=== PATIENT | female | born 1945 | race Caucasian/White ===

== ENCOUNTER 2016-07-19 21:41 | Inpatient (IN) ==
[2016-07-19] MEDS ORDERED: MECLIZINE 25 MG TABLET PO STA (22:37)
[2016-07-19] MEDS ORDERED: SODIUM CHLORIDE 0.9% 1,000 ML IV STA (22:37)
--- NOTE | 2016-07-19 22:58 | CT Report ---
Exam: CT scan of brain without contrast Date: 07/19/2016 Indication: Dizziness Comparison: None Patient's classification: Emergency department Technical: Images were obtained from the skull base to the vertex without the use of intravenous contrast. Dose reduction was performed with decreasing kv and mA and automated exposure Total DLP: 997.9 mGy*cm Findings: Hyperostosis frontalis interna change present. Small vessel changes are present in the paraventricular subcortical white matter regions. Old lacunar infarction cannot be total excluded in the right centrum semiovale. The ventricles are midline. Brainstem is intact. The cerebellum reveals some suggestion of old infarction involving the right cerebellum. The paranasal sinuses globes and sella and mastoids are intact. Impression: 1. Old lacunar infarction in the right centrum semiovale and small vessel disease 2. Old right cerebellar infarct 3. No acute hemorrhage infarction or mass effect PROCEDURE INTERPRETED AT [facility] DEPARTMENT OF RADIOLOGY Final Report Signed by: Dr. Jose Bernard
--- NOTE | 2016-07-19 22:59 | XRay Report ---
Exam: XR chest 1V portable Date: 07/19/2016 10:38 PM Indication: Shortness of breath Comparison: 11/03/2012 Technical:AP semierect Findings: Cardiomegaly with previous sternotomy. Small granulomas present left lung base and small calcified nodes in the perihilar regions. External cardiac leads tubing are present. Tiny low-volume effusions are present bilaterally. No pneumothorax Impression: 1. Cardiomegaly previous sternotomy with tiny effusions 2. Scattered granuloma changes. PROCEDURE INTERPRETED AT [facility] [place] DEPARTMENT OF RADIOLOGY Final Report Signed by: Dr. Jose Bernard
[2016-07-19] MEDS ORDERED: MECLIZINE 25 MG TABLET ONE (23:01)
--- NOTE | 2016-07-19 23:27 | Emergency Department Note ---
IOchoa Meredith, am scribing for, and in the presence of, Melquiades Covarrubias MD 22:34. ISatish Robert M, MD, personally performed the services described in this documentation, ascribed by Jazzy Packer in my presence, and it is both accurate and complete 326 . Arrival - Arrival Chief Complaint: Dizziness Stated Complaint: DIZZY ED Nursing Triage Note: states she has been feeling weak since friday but felt better but today she has been dizzy al day and almost past out. states she called her dr office today and they told her to come here. several months ago she was told both ears were stopped up and pt hasnt had that checkd having sob when up and walking Mode of Arrival: Wheelchair Limitations: No Limitations Source: Patient, Old Records Reviewed, RN Notes Reviewed - History of Present Illness HPI Narrative: Pt is a 71 y/o white female reporting to the ED with c/o intermittent episodes of dizziness, generalized weakness, and near-syncope for the past 4 days. She confirms dyspnea on exertion and decreased PO intake but denies any diaphoresis. Pt has a history of CAD, HTN, CVA, NIDDM, HLD, and thyroid disorder. She denies use of tobacco or alcohol. Onset (ago): day(s) Consistency: intermittent Date of Last Menstrual Period: pm Allergies/Adverse Reactions: Allergies Allergy/AdvReac Type Severity Reaction Status Date / Time No Known Allergies Allergy Unverified 07/19/16 21:52 Home Medications: Home Medications Medication Instructions Recorded Confirmed Type Amitriptyline [Elavil] 50 mg PO DAILY 07/19/16 07/19/16 History Amlodipine Besylate 10 mg PO DAILY 07/19/16 07/19/16 History Aspirin/Calcium Carbonate/Mag 325 mg PO DAILY 07/19/16 07/19/16 History [Aspirin Buffered 325 mg Tab] Atenolol 100 mg PO BID 07/19/16 07/19/16 History Atorvastatin [Lipitor] 60 mg PO DAILY 07/19/16 07/19/16 History DULoxetine [Cymbalta] 30 mg PO DAILY 07/19/16 07/19/16 History Ferrous Sulfate 325 mg PO TID 07/19/16 07/19/16 History Furosemide 40 mg PO BID 01/20/17 01/20/17 History Glimepiride 2 mg PO DAILY 07/19/16 07/19/16 History Levothyroxine Sodium 200 mcg PO DAILY 07/19/16 07/19/16 History Review of System - Review of System 12 point system: reviewed and no additional remarkable complaints except as stated - Review of System Constitutional: Present: as per HPI, weakness, other (dizziness) Cardiovascular: Present: as per HPI, dyspnea on exertion, syncope (near-syncope) Medical,Surgical,& Family Hx - Medical History Cardio: History of: CAD, Hypertension Neurology: History of: Cerebrovascular Accident (brain stem stroke 1996) Endocrine: History of: Diabetes Mellitus (NIDDM), Dyslipidemia, Thyroid Disorder - Surgical History Cardiac Surgeries: Sugical HX of: Cardiac Surgery - Family History Family History: Denies;: Additional Family History - Social History Smoking Status: Never smoker Frequency of Alcohol Use: None Type of Drug Use: None Exam Vital Signs: Vital Signs Temperature 97.2 F L 07/19/16 21:46 Pulse Rate 71 07/20/16 00:43 Respiratory Rate 15 07/20/16 00:43 Blood Pressure 159/97 07/20/16 00:43 O2 Sat by Pulse Oximetry 92 L 07/20/16 00:43 - General General appearance: alert, in no apparent distress - Head Head exam: Present: atraumatic, normocephalic - Eye Eye exam: Present: normal appearance, PERRL, EOMI - ENT ENT exam: Present: mucous membranes dry, normal external ear exam, other ( bilateral cerumen obstructions) - Neck Neck exam: Present: full ROM, trachea midline. Absent: tenderness, meningismus , lymphadenopathy, thyromegaly - Chest Chest inspection: Present: symmetric chest wall rise. Absent: tenderness, rash - Respiratory Respiratory exam: Present: normal lung sounds bilaterally. Absent: respiratory distress - Cardiovascular Cardiovascular exam: Present: regular rate, normal rhythm, normal heart sounds. Absent: murmur, rubs, gallop - Abdominal Exam Abdominal exam: Present: soft, normal bowel sounds. Absent: distention - Extremities Exam Extremities exam: Present: full ROM, normal capillary refill. Absent: tenderness, pedal edema, calf tenderness - Back Exam Back exam: Present: full ROM. Absent: tenderness - Neurological Exam Neurological exam: Present: alert, oriented X3, CN II-XII intact. Absent: motor sensory deficit - Psychiatric Psychiatric exam: Present: normal affect, normal mood - Skin Skin exam: Present: warm, dry, intact, normal color Course - Reevaluation(s) Reevaluation #1: The tilt and Hemoccults are negative. Time: 23:30 - Consultations Consultation #1: Dr. Cem Roque will evaluate and admit the patient. Time: 01:12 Results - Labs CBC & BMP: 07/19/16 23:13 07/19/16 23:13 Lab Results: I have reviewed the patients labs Labs: Lab Results WBC 10.5 10*3/uL (4.5-13.71) 07/19/16 23:13 RBC 4.88 10*6/uL (3.8-5.5) 07/19/16 23:13 Hgb 15.1 GM/DL (12.0-16.0) 07/19/16 23:13 Hct 46.9 VOL% (35.7-47.0) 07/19/16 23:13 MCV 96.1 FL (87-102) 07/19/16 23:13 MCH 31 PG (27-34) 07/19/16 23:13 MCHC 32.2 GM/DL (32-36) 07/19/16 23:13 RDW 13.3 % (9.3-17.3) 07/19/16 23:13 Plt Count 225 10*3/uL (130-400) 07/19/16 23:13 MPV 10.2 FL (9.6-12.0) 07/19/16 23:13 Neut % (Auto) 79.1 % (38.7-73.9) H 07/19/16 23:13 Lymph % (Auto) 12.5 % (21.3-54.2) L 07/19/16 23:13 [place] % (Auto) 6.7 % (1.7-12.7) 07/19/16 23:13 Eos % (Auto) 0.7 % (0.00-10.9) 07/19/16 23:13 Baso % (Auto) 0.3 % (0.0-0.8) 07/19/16 23:13 Neut # (Auto) 8.3 10*3/uL (1.4-7.4) H 07/19/16 23:13 Lymph # (Auto) 1.3 10*3/uL (1.4-4.0) L 07/19/16 23:13 [place] # (Auto) 0.7 10*3/uL (0.11-0.8) 07/19/16 23:13 Eos # (Auto) 0.1 10*3/uL (0.0-0.87) 07/19/16 23:13 Baso # (Auto) 0.0 10*3/uL (0.0-0.2) 07/19/16 23:13 Immature Gran % 0.7 % 07/19/16 23:13 Nucleated RBC % 0.0 /100WBC 07/19/16 23:13 Immature Gran # 0.07 # 07/19/16 23:13 Nucleated RBCs # 0.00 10*3/uL 07/19/16 23:13 INR 1.1 07/19/16 23:13 PT Patient/Control Mix 11.3 SECS 07/19/16 23:13 Sodium 144 MMOL/L (136-145) 07/19/16 23:13 Potassium 4.7 MMOL/L (3.5-5.1) 07/19/16 23:13 Chloride 106 MMOL/L (98-107) 07/19/16 23:13 Carbon Dioxide 28 MMOL/L (21-32) 07/19/16 23:13 Anion Gap 14.7 MMOL/L (5.0-15.0) 07/19/16 23:13 BUN 22 MG/DL (7-18) H 07/19/16 23:13 Creatinine 0.90 MG/DL (0.55-1.02) 07/19/16 23:13 GFR Calculation 68 ML/MIN 07/19/16 23:13 BUN/Creatinine Ratio 24.00 RATIO (6.00-20.00) H 07/19/16 23:13 Glucose 157 MG/DL (74-106) H 07/19/16 23:13 Calculated Osmolality 291.8 MOS/KG (273-304) 07/19/16 23:13 Calcium 9.9 MG/DL (8.5-10.1) 07/19/16 23:13 Magnesium 2.5 MG/DL (1.8-2.4) H 07/19/16 23:13 Troponin I 0.031 NG/ML (0.00-0.045) 07/19/16 23:13 B-Natriuretic Peptide 408 PG/ML (2-100) H 07/19/16 23:13 Urine Color Yellow (Yellow) 07/19/16 23:13 Urine Appearance Cloudy (Clear) 07/19/16 23:13 Urine pH 6.0 (4.5-8.0) 07/19/16 23:13 Ur Specific [place] 1.013 (1.001-1.035) 07/19/16 23:13 Urine Protein 30 MG/DL 07/19/16 23:13 Urine Glucose (UA) 50 mg/dL (Negative) 07/19/16 23:13 Urine Ketones 5 mg/dL (Negative) 07/19/16 23:13 Urine Blood Large mg/dL (Negative) 07/19/16 23:13 Urine Nitrate Negative (Negative) 07/19/16 23:13 Urine Bilirubin Negative mg/dL (Negative) 07/19/16 23:13 Urine Urobilinogen < 2.0 EU/DL (0.2-1.0) H 07/19/16 23:13 Urine Leukocytes Large Colleen/ul (Negative) H 07/19/16 23:13 Urine RBC 372 /HPF (0-4) 07/19/16 23:13 Urine WBC 98 /HPF (0-6) 07/19/16 23:13 Ur Squamous Epith Cells Many /HPF (0-10) 07/19/16 23:13 Urine Bacteria Many /HPF (Few) 07/19/16 23:13 Urine Mucus Few /LPF (Occasional) 07/19/16 23:13 Ur Culture Indicated? Results to follow 07/19/16 23:13 - Diagnostic Findings Procedure: Chest x-ray: report reviewed by me (1. Cardiomegaly previous sternotomy with tiny effusions. 2. Scattered granuloma changes. ), CT: report reviewed by me (Head: 1. Old lacunar infarction in the right centrum semiovale and small vessel disease. 2. Old right cerebellar infarct. 3. No acute hemorrhage infarction or mass effect. ) Disposition Clinical Impression: Dizziness, Cystitis Case discussed with: patient, patient's family Condition: Stable Time of Disposition:
[2016-07-19 23:33] LABS: Basophils % 0.3 % (0.0-0.8); Eosinophils # 0.1 10*3/uL (0.0-0.87); Eosinophils % 0.7 % (0.00-10.9); Hematocrit 46.9 VOL% (35.7-47.0); Hemoglobin 15.1 GM/DL (12.0-16.0); Immature Granulocytes % 0.7 %; Immature Granulocytes Absolute 0.07 #; Lymphocytes # 1.3 10*3/uL (1.4-4.0); Lymphocytes % 12.5 % (21.3-54.2); Mean Corpuscular HGB Conc 32.2 GM/DL (32-36); Mean Corpuscular Hemoglobin 31 PG (27-34); Mean Corpuscular Volume 96.1 FL (87-102); Mean Platelet Volume 10.2 FL (9.6-12.0); Monocytes # 0.7 10*3/uL (0.11-0.8); Monocytes % 6.7 % (1.7-12.7); Neutrophils # 8.3 10*3/uL (1.4-7.4); Neutrophils % 79.1 % (38.7-73.9); Platelet Count 225 10*3/uL (130-400); Red Blood Count 4.88 10*6/uL (3.8-5.5); Red Cell Distribution Width 13.3 % (9.3-17.3); White Blood Count 10.5 10*3/uL (4.5-13.71)
[2016-07-19 23:42] LABS: INR 1.1; PT Patient Result 11.3 SECS
[2016-07-19 23:45] LABS: Calcium 9.9 MG/DL (8.5-10.1); Magnesium 2.5 MG/DL (1.8-2.4); Osmolality,Calculated 291.8 MOS/KG (273-304); Potassium 4.7 MMOL/L (3.5-5.1); Troponin I Only 0.031 NG/ML (0.00-0.045)
[2016-07-20 00:29] LABS: Apearance,Urine CLOUDY (Clear); Bacteria,Urine Many /HPF (Few); Bilirubin,Urine Negative (Negative); Blood, Urine Large mg/dL (Negative); Glucose,Urine (UA) 50 mg/dL (Negative); Ketones,Urine 5 mg/dL (Negative); Mucus,Urine Few /LPF (Occasional); Nitrite,Urine Negative (Negative); Protein,Urine 30 MG/DL; RBC,Urine 372 /HPF (0-4); Squamous Epithelial Cell,Urine Many /HPF (0-10); Urine Color Yellow (Yellow); Urine Specific Gravity 1.013 (1.001-1.035); Urine Urobilinogen < 2.0 EU/DL (0.2-1.0); WBC,Urine 98 /HPF (0-6)
[2016-07-20] MEDS ORDERED: LEVOFLOXACIN INJ 500 MG in PREMIX 1 EACH IV STA (01:14)
[2016-07-20] MEDS ORDERED: LEVOFLOXACIN INJ 100 ML IV ONE (01:16)
[2016-07-20] MEDS ORDERED: MORPHINE 2 MG/1 ML SYRINGE IV PRN (03:44)
[2016-07-20] MEDS ORDERED: ONDANSETRON 4 MG/2 ML VIAL IV PRN (03:44)
[2016-07-20] MEDS ORDERED: BISACODYL 5 MG TABLET PO PRN (03:44)
[2016-07-20] MEDS ORDERED: NICOTINE 21 MG/24 HR PATCH TRANSDERM PRN (03:44)
[2016-07-20] MEDS ORDERED: ACETAMINOPHEN 325 MG TABLET PO PRN (03:44)
[2016-07-20] MEDS ORDERED: GLUCAGON 1 MG VIAL IM PRN (03:50)
[2016-07-20] MEDS ORDERED: DEXTROSE 50% 25 GM/50 ML VIAL IV PRN (03:50)
--- NOTE | 2016-07-20 03:52 | Hospitalist History & Physical ---
Assessment and Plan (1) Acute cystitis Status: Acute Current Visit: Yes (2) Type 2 diabetes mellitus Status: Acute Current Visit: Yes (3) Hypertension Status: Acute Current Visit: Yes (4) History of CVA (cerebrovascular accident) Status: Acute Current Visit: Yes (5) Dizziness Status: Acute Assessment and plan: Plan: Admit for IV antibiotics as she continues to have symptoms despite being on antibiotics including Cipro and a short course of Augmentin, albeit for upper respiratory symptoms. We'll start her on IV cefepime check blood and urine cultures and follow-up CT of the brain. Current Visit: Yes History of Present Illness Chief complaint: dysuria, dizziness History of present illness: Ms. Orourke is a 71 year old female with hypertension, diabetes, history of CABG , who is here with a few days of dysuria and associated dizziness. She states she had chills over the last 24 hours but no fever, shortness of breath, nausea or vomiting. Initial labs indicated a urinary tract infection and it was reported she had purulent urine when collected in the emergency room. She describes her lower abdominal pain as spasms, "not terribly painful." Pain is nonradiating at this time does not seem to be bothering her. Her symptoms have been intermittent. Regarding her dizziness she's had no syncope or headache. CT scan is pending. Home Medications Medication Instructions Recorded Confirmed Type Amitriptyline [Elavil] 50 mg PO DAILY 07/19/16 07/19/16 History Amlodipine Besylate 10 mg PO DAILY 07/19/16 07/19/16 History Aspirin/Calcium Carbonate/Mag 325 mg PO DAILY 07/19/16 07/19/16 History [Aspirin Buffered 325 mg Tab] Atenolol 100 mg PO BID 07/19/16 07/19/16 History Atorvastatin [Lipitor] 60 mg PO DAILY 07/19/16 07/19/16 History DULoxetine [Cymbalta] 30 mg PO DAILY 07/19/16 07/19/16 History Ferrous Sulfate 325 mg PO TID 07/19/16 07/19/16 History Furosemide 40 mg PO BID 07/19/16 07/19/16 History Glimepiride 2 mg PO DAILY 07/19/16 07/19/16 History Levothyroxine Sodium 200 mcg PO DAILY 07/19/16 07/19/16 History Allergies Allergy/AdvReac Type Severity Reaction Status Date / Time No Known Allergies Allergy Unverified 07/19/16 21:52 Medical,Surgical,& Family Hx - Medical History Cardio: History of: CAD, Hypertension Neurology: History of: Cerebrovascular Accident (brain stem stroke 1996) Endocrine: History of: Diabetes Mellitus (NIDDM), Dyslipidemia, Thyroid Disorder - Surgical History Cardiac Surgeries: Sugical HX of: Cardiac Surgery - Family History Family History: noncontributory Family History: Denies;: Additional Family History - Social History Smoking Status: Never smoker Frequency of Alcohol Use: None Type of Drug Use: None Marital Status: Unknown Functional capacity: independent ambulation Review of systems: A 12 point review of systems is negative except as specified in the HPI Exam - Constitutional Vitals: Period Temp Pulse Resp BP Sys/Quintanilla Pulse Ox Last 24 Hr 97.2 F 67-80 15-18 133-168/80-112 90-98 Exam: EXAM: CONSTITUTIONAL: non toxic, NAD HEENT: NC, AT, OP benign, AMRIT, EOMI CV: RRR no m/g/r RESP: clear B/L, no w/r/r GI: abd soft, very mild suprapubic tenderness, ND, +bowel sounds INTEGUMENTARY: no lesions or rash EXTREMITIES: no c/c/e NEURO: no focal deficits PSYCH: unremarkable, A/O x3 Results - Labs CBC & BMP: 07/19/16 23:13 07/19/16 23:13 Lab Results: I have reviewed the past 24 hour labs - Diagnostic Findings Procedure: CT: image reviewed by me
[2016-07-20] MEDS ORDERED: LEVOFLOXACIN 750 MG TABLET PO SCH (04:00)
[2016-07-20] MEDS ORDERED: methylPREDNISolone SOD SUC 40 MG/1 ML VIAL IV SCH (04:00)
[2016-07-20] MEDS: CEFEPIME 1,000 MG in SODIUM CHLORIDE 0.9% 100 ML IV SCH ×2 (05:29→18:29)
[2016-07-20] MEDS: LEVOTHYROXINE 200 MCG TABLET PO SCH ×2 (06:13→09:36)
[2016-07-20 06:15] LABS: Basophils % 0.3 % (0.0-0.8); Eosinophils # 0.1 10*3/uL (0.0-0.87); Eosinophils % 0.6 % (0.00-10.9); Hematocrit 42.8 VOL% (35.7-47.0); Hemoglobin 13.6 GM/DL (12.0-16.0); Immature Granulocytes % 0.3 %; Immature Granulocytes Absolute 0.03 #; Lymphocytes # 1.4 10*3/uL (1.4-4.0); Lymphocytes % 14.3 % (21.3-54.2); Mean Corpuscular HGB Conc 31.8 GM/DL (32-36); Mean Corpuscular Hemoglobin 31 PG (27-34); Mean Corpuscular Volume 97.3 FL (87-102); Mean Platelet Volume 9.9 FL (9.6-12.0); Monocytes # 0.8 10*3/uL (0.11-0.8); Monocytes % 7.9 % (1.7-12.7); Neutrophils # 7.7 10*3/uL (1.4-7.4); Neutrophils % 76.6 % (38.7-73.9); Platelet Count 205 10*3/uL (130-400); Red Cell Distribution Width 13.2 % (9.3-17.3)
[2016-07-20 07:00] LABS: Albumin 3.1 G/DL (3.4-5.0); Bilirubin,Total 0.7 MG/DL (0.2-1.0); Calcium 8.7 MG/DL (8.5-10.1); Osmolality,Calculated 294.6 MOS/KG (273-304); Potassium 4.5 MMOL/L (3.5-5.1); Total Protein 6.7 G/DL (6.4-8.3)
[2016-07-20] MEDS: ALBUTEROL/IPRATROPIUM 3 ML NEB RESP TX SCH ×3 (07:53→19:25)
--- NOTE | 2016-07-20 08:19 | Hospitalist Progress Note ---
Assessment and Plan (1) UTI (urinary tract infection) Status: Acute Assessment and plan: Although patient did not report any nodule me at present urination symptoms it was mentioned in H&P will continue to treat with antibiotics and follow culture sensitivity Current Visit: Yes (2) Dizziness Status: Acute Assessment and plan: I will check orthostatic blood pressure and pulse rate . We will obtain an echocardiogram Current Visit: Yes (3) Hypertension Status: Chronic Assessment and plan: Acceptable blood pressure but need to check orthostatic vitals as mentioned Current Visit: Yes (4) Type 2 diabetes mellitus Status: Chronic Assessment and plan: We'll continue to follow blood blood sugar patient is on oral hypoglycemic Current Visit: Yes (5) Hypernatremia Status: Acute Assessment and plan: Likely due to loop diuretics. This also wanted to some volume depletion. Since she does not have any congestive symptoms however cut down the dose to 20 twice a day and watch and coverage fluid intake but remain on a low-sodium diet Current Visit: Yes (6) Low O2 saturation Status: Acute Assessment and plan: Saturation been mentioned in the vitals patient is not short of breath will hold oxygen monitor symptoms and recheck O2 saturation Current Visit: Yes Hospitalist: Subjective Interval history: Ms. Orourke is a 71 year old female with hypertension, diabetes, history of CABG , she was admitted with a history of dizziness started for about 4 days prior to admission. The dizziness is reported more orthostatic and never in rested position. She feels like, lightheadedness episodes. She has been on antihypertensive medications at home but does not know the names of medications. She checks blood pressure at home but not sure about the readings. She feels fine now. She was reported to have a low O2 saturation earlier but according to patient she had this probe adjusted and it was better. She she has no history of shortness of breath or chest pain. She has been on oxygen here which was increased due to finding of a low O2 saturation. Although she denies any dysuria at present to me it was some mentioned history and physical to have chills with the nausea vomiting dyspnea and was reported to have pyuria and being treated for UTI with cefepime ' Exam - Constitutional Vitals: Period Temp Pulse Resp BP Sys/Quintanilla Pulse Ox Last 24 Hr 97.6 F-98.5 F 61-77 14-20 126-163/70-96 88-98 General appearance: no acute distress, over weight - Respiratory Respiratory exam: Present: clear to auscultation bilaterally (equal air entry bilaterally). Absent: rales, rhonchi - Cardiovascular Cardiovascular exam: Present: regular rate and rhythm. Absent: bradycardia, JVD , tachycardia - GI/Abdominal GI/Abdominal exam: Present: normal bowel sounds, soft. Absent: tenderness - Extremities Exam Extremities exam: Present: normal inspection, edema (left leg chronic edema since CABG) - Neurological Exam Neurological exam: Present: alert, oriented X3 - Psychiatric Psychiatric exam: Present: normal affect, normal mood Results - Labs CBC & BMP: 07/20/16 05:51 07/20/16 05:51 Lab Results: I have reviewed the past 24 hour labs
[2016-07-20] MEDS ORDERED: FUROSEMIDE 40 MG TABLET PO SCH (09:00)
[2016-07-20] MEDS ORDERED: FLUTICASONE/SALMETEROL 250-50 DISKUS 14 DOSE INH SCH (09:00)
[2016-07-20] MEDS: INSULIN REGULAR 100 UNIT/ML SUBCUT SCH ×4 (09:32→20:59)
[2016-07-20] MEDS: amLODIPine 10 MG TABLET PO SCH (09:34)
[2016-07-20] MEDS: ATORVASTATIN 40 MG TABLET PO SCH (09:35)
[2016-07-20] MEDS: GLIMEPIRIDE 2 MG TABLET PO SCH (09:37)
[2016-07-20] MEDS: FERROUS SULFATE 325 MG TABLET PO SCH ×3 (09:37→20:59)
[2016-07-20] MEDS: ASPIRIN EC 325 MG TABLET PO SCH (09:37)
[2016-07-20] MEDS: PANTOPRAZOLE 40 MG TABLET PO SCH (09:37)
[2016-07-20] MEDS: ATENOLOL 100 MG TABLET PO SCH ×2 (09:37→20:59)
[2016-07-20] MEDS: DULoxetine 30 MG CAPSULE PO SCH (09:38)
[2016-07-20] MEDS: ENOXAPARIN 40 MG/0.4 ML SYRINGE SUBCUT SCH (09:38)
[2016-07-20] MEDS: AMITRIPTYLINE 25 MG TABLET PO SCH (09:39)
[2016-07-20] MEDS: FUROSEMIDE 20 MG TABLET PO SCH (15:38)
--- NOTE | 2016-07-20 16:19 | ECHO Report ---
Madisyn Orourke Exam Date: 07/20/2016 13:44 Referring Physician: Technologist: Herminia CORONEL Age: 71 Ht (in): Wt (lb): Gender: F Exam Location: [facility] Echo Indications: cystitis, diabetes, HTN, dizziness, UTI, Hx. CVA BP: / HR: Rhythm: Sinus Technical Quality: Good IMPRESSIONS Left ventricular ejection fraction is estimated at > 55 %. Moderately increased septal wall thickness. Mild concentric left ventricular hypertrophy with diastolic dysfunction. Mildly increased right ventricular size. The right atrium is mildly enlarged. Moderately increased left atrial diameter. Mildly thickened mitral valve with 1 + mitral regurgitation. Aortic valve sclerosis without stenosis or regurgitation. MEASUREMENTS (Male / Female) Normal Values 2D ECHO LV Diastolic Diameter PLAX 3.4 cm 4.2 - 5.9 / 3.9 - 5.3 cm LV Systolic Diameter PLAX 2.0 cm LV Fractional Shortening PLAX 42.9 % IVS Diastolic Thickness 1.4 cm 0.6 - 1.0 / 0.6 - 0.9 cm LVPW Diastolic Thickness 1.2 cm 0.6 - 1.0 / 0.6 - 0.9 cm RV Internal Dim ED PLAX 3.4 cm Aortic Root Diameter 2.4 cm LA Systolic Diameter LX 4.5 cm 3.0 - 4.0 / 2.7 - 3.8 cm FINDINGS Left Ventricle Moderately increased septal wall thickness. Mildly increased posterior wall thickness. Mild concentric left ventricular hypertrophy with diastolic dysfunction. Left ventricular ejection fraction is estimated at > 55 %. Right Ventricle Mildly increased right ventricular size. Right Atrium The right atrium is mildly enlarged. Left Atrium Moderately increased left atrial diameter. Mitral Valve Mildly thickened mitral valve with 1 + mitral regurgitation. Aortic Valve Aortic valve sclerosis without stenosis or regurgitation. Tricuspid Valve Morphologically normal tricuspid valve. Pulmonic Valve Morphologically normal pulmonic valve. Pericardium No pericardial effusion. Aorta Normal size aortic root and proximal ascending aorta. Vitaly Sandoval MD (Electronically Signed) Final Date: 20 July 2016 16:18
[2016-07-20] MEDS ORDERED: POTASSIUM CHLORIDE 20 MEQ TABLET PO SCH (21:00)
[2016-07-21] MEDS ORDERED: ALBUTEROL/IPRATROPIUM 3 ML NEB RESP TX SCH (01:00)
[2016-07-21] MEDS ORDERED: LEVALBUTEROL 1.25 MG/3 ML NEB RESP TX SCH (01:00)
[2016-07-21] MEDS ORDERED: IPRATROPIUM 500 MCG/2.5 ML NEB RESP TX SCH (01:00)
[2016-07-21] MEDS: ALBUTEROL/IPRATROPIUM 3 ML NEB RESP TX SCH ×4 (02:18→21:26)
[2016-07-21] MEDS: LEVOTHYROXINE 200 MCG TABLET PO SCH (06:09)
[2016-07-21] MEDS: CEFEPIME 1,000 MG in SODIUM CHLORIDE 0.9% 100 ML IV SCH ×2 (06:09→19:10)
[2016-07-21] MEDS: INSULIN REGULAR 100 UNIT/ML SUBCUT SCH ×4 (08:53→22:15)
[2016-07-21] MEDS: ENOXAPARIN 40 MG/0.4 ML SYRINGE SUBCUT SCH (08:54)
[2016-07-21] MEDS: FERROUS SULFATE 325 MG TABLET PO SCH ×3 (08:54→22:20)
[2016-07-21] MEDS: GLIMEPIRIDE 2 MG TABLET PO SCH (08:55)
[2016-07-21] MEDS: ATENOLOL 100 MG TABLET PO SCH (08:55)
[2016-07-21] MEDS: amLODIPine 10 MG TABLET PO SCH (08:55)
[2016-07-21] MEDS: ASPIRIN EC 325 MG TABLET PO SCH (08:55)
[2016-07-21] MEDS: DULoxetine 30 MG CAPSULE PO SCH (08:55)
[2016-07-21] MEDS: PANTOPRAZOLE 40 MG TABLET PO SCH (08:55)
[2016-07-21] MEDS: FUROSEMIDE 20 MG TABLET PO SCH (08:55)
[2016-07-21] MEDS: AMITRIPTYLINE 25 MG TABLET PO SCH (10:53)
--- NOTE | 2016-07-21 11:50 | Hospitalist Progress Note ---
Assessment and Plan (1) UTI (urinary tract infection) Status: Acute Assessment and plan: Blood cultures be negative unfortunately no urine culture are present. I will continue antibiotics as patient did have some dysuria Current Visit: Yes (2) Dizziness Status: Acute Assessment and plan: Although yesterday patient reported dizziness on standing. It is apparent patient failed have symptoms when she stand up from a stooping position. She also has some problems of blood pressure although strangely her pulse rate was not elevated on standing. I will watch the symptoms and I will hold on amitriptyline which can cause orthostasis or Current Visit: Yes (3) Hypertension Status: Chronic Assessment and plan: Acceptable blood pressure Current Visit: Yes (4) Type 2 diabetes mellitus Status: Chronic Assessment and plan: We'll continue to follow blood blood sugar patient is on oral hypoglycemic Current Visit: Yes (5) Hypernatremia Status: Acute Assessment and plan: Probably contributed by diuretic, no lab today will order BMP for tomorrow. Current Visit: Yes (6) Low O2 saturation Status: Acute Assessment and plan: Hypoxemia based on O2 saturation improved with oxygen chest x-ray reported started growing granuloma. She has swelling of the left lower extremities which she reported chronic. I'll go ahead and Hospital course CT PE protocol to make sure this is not thromboembolic disease. Will obtain left leg venous Dopplers if CT chest negative for PE Current Visit: Yes Hospitalist: Subjective Interval history: Ms. Orourke is a 71 year old female with hypertension, diabetes, history of CABG , she was admitted with a history of dizziness started for about 4 days prior to admission. The dizziness is reported more orthostatic and never in rested position. She feels like, lightheadedness episodes. She has been on antihypertensive medications at home but does not know the names of medications. Study what was done yesterday and noted but strangely enough her pulse rate was up in the supine position while the blood pressure was low when she was standing still in normal range she reported no symptoms when they checked the blood pressure. Low O2 sat was reported yesterday and was rechecked she did drop his O2 sat on no regular movement oxygen and improved to 95% with a nasal cannula. Dr. Hewitt 10 report patient did feel short of breath while walking to nurses station. Usually she is independent at home and take care of herself. Recently she was also told that her ears are plugged and need cleaning. She has no fever , she did have some burning while she urinated earlier this morning but voided well without any dysuria after that. Exam - Constitutional Vitals: Period Temp Pulse Resp BP Sys/Quintanilla Pulse Ox Last 24 Hr 97.4 F-98.6 F 51-66 16-57 104-152/59-80 88-98 General appearance: no acute distress - Respiratory Respiratory exam: Present: clear to auscultation bilaterally. Absent: rales, rhonchi - Cardiovascular Cardiovascular exam: Present: regular rate and rhythm. Absent: JVD, tachycardia - GI/Abdominal GI/Abdominal exam: Present: normal bowel sounds, soft. Absent: distended, tenderness - Extremities Exam Extremities exam: Present: edema (which patient reports chronic since CABG) - Neurological Exam Neurological exam: Present: alert, oriented X3 - Psychiatric Psychiatric exam: Present: normal affect, normal mood Results - Labs CBC & BMP: 07/20/16 05:51 07/20/16 05:51 Lab Results: I have reviewed the past 24 hour labs
[2016-07-21] MEDS: ATORVASTATIN 40 MG TABLET PO SCH (12:43)
--- NOTE | 2016-07-21 12:45 | CT Report ---
Exam: CT chest PE study Date: 07/21/2016 11:57 AM Indication: Dyspnea hypoxemia Comparison: Routine chest 07/19/2016 Technical: Images were obtained from the thoracic inlet through the lung bases with 80 cc of Omnipaque 350 with axial and coronal imaging available for review.Dose reduction was performed with decreasing kv and mA and automated exposure Findings: The thyroid gland trachea and esophagus are unremarkable.. The examination reveals patency of the pulmonary outflow tract the proximal left and right coronary arteries and reveals extensive thrombosis present bilaterally extending into the first second order branches. Examination reveals the component of the hilar adenopathy present in the right with the area of the masslike density in the right upper chest posteriorly measuring 4.1 x 2.9 cm groundglass surrounding edema is present. The bony structures are intact. Cardiomegaly is present with previous sternotomy. Vascular calcinosis of the aorta present without aneurysm. There is a large hiatal hernia present. The liver spleen gallbladder pancreas and adrenal glands are intact. Mild atrophy of the kidneys present. Small right nephrolithiasis calcifications are present times 2. The largest measures approximately 5 mm Impression: 1. Bilateral pulmonary thromboemboli fairly extensive in the first and second order branches. 2. Right upper lobe infiltrate or mass some postobstructive pneumonitis changes suspected 3. Cardiomegaly with previous sternotomy 4. Large hiatal hernia Critical test results called to Dr. Ontiveros at the time of dictation. PROCEDURE INTERPRETED AT [facility] DEPARTMENT OF RADIOLOGY Final Report Signed by: Dr. Jose Bernard
[2016-07-21] MEDS ORDERED: HEPARIN 5,000 UNIT/1 ML VIAL IV ONE (12:46)
[2016-07-21] MEDS ORDERED: HEPARIN DRIP 25,000 UNITS/500 ML PREMIX IV SCH ×2 (13:00→13:30)
--- NOTE | 2016-07-21 15:28 | Cardiology Consult Note ---
Assessment and Plan (1) Pulmonary emboli Status: Acute Assessment and plan: 1. 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 Her CT chest shows large bilateral proximal pulmonary emboli with right ventricular enlargement suggestive of acute cor pulmonale secondary to this 2. Currently on heparin infusion, will with significant dyspnea with any movement, removal of her oxygen 3. Ms. Orourke is followed by Dr. Valentine in clinic, therefore her last stress test was in [place] in 2007 and showed "no need for a catheterization" I discussed with Mrs. Orourke and her family the risks and benefits of pulmonary artery catheter placement and catheter directed from the lysis including but not limited to: stroke vascular damage significant bleeding. I explained that the bleeding risk is similar to traditional therapy that she is receiving now. I explained that her course would be significantly shorter by approximately 50% with catheter directed thrombolysis versus traditional medical therapy. I answered many questions regarding the procedure, and she finally decided to proceed this afternoon. Current Visit: Yes (2) S/P CABG x 2 Status: Acute Current Visit: Yes (3) H/O carotid endarterectomy Status: Acute Current Visit: Yes (4) History of CVA (cerebrovascular accident) Status: Acute Current Visit: Yes History of Present Illness - Consult Narrative History of present illness: Ms. Orourke is a 71 year old female who her family says is had some dyspnea on exertion for months. However the last 6 days she's had particular increased dyspnea on exertion episodes of dizziness/presyncope as well as a strange sensation "like discomfort in my chest and arms". She is not had any true syncope. She has an extensive vascular history but has not had any blood clots or recent bleeding problems. She follows Dr. Valentine but has not been admitted to the hospital in recent months. She has remote history of CABG. She describes no hemiparesis, palpitations, or increase in her usual edema. She has chronic left lower extremity edema from her vein harvest site from CABG. CC: Andrew Ontiveros M.D. - Home Medications and Allergies Home Medications: Home Medications Medication Instructions Recorded Confirmed Type Amitriptyline [Elavil] 50 mg PO DAILY 07/19/16 07/19/16 History Amlodipine Besylate 10 mg PO DAILY 07/19/16 07/19/16 History Aspirin/Calcium Carbonate/Mag 325 mg PO DAILY 07/19/16 07/19/16 History [Aspirin Buffered 325 mg Tab] Atenolol 100 mg PO BID 07/19/16 07/19/16 History Atorvastatin [Lipitor] 60 mg PO DAILY 07/19/16 07/19/16 History DULoxetine [Cymbalta] 30 mg PO DAILY 07/19/16 07/19/16 History Ferrous Sulfate 325 mg PO TID 07/19/16 07/19/16 History Furosemide 40 mg PO BID 07/19/16 07/19/16 History Glimepiride 2 mg PO DAILY 07/19/16 07/19/16 History Levothyroxine Sodium 200 mcg PO DAILY 07/19/16 07/19/16 History Allergies/Adverse Reactions: Allergies Allergy/AdvReac Type Severity Reaction Status Date / Time No Known Allergies Allergy Unverified 07/19/16 21:52 - Constitutional Constitutional: Present: as per HPI - Cardiovascular Cardiovascular: Present: chest pain at rest, dyspnea, dyspnea on exertion, edema - Respiratory Respiratory: Present: dyspnea, dyspnea on exertion - Gastrointestinal Gastrointestinal: Absent: abdominal pain, diarrhea - Neurological Neurological: Present: disequilibrium, dizziness. Absent: abnormal speech - Hematologic/Lymphatic Hematologic/Lymphatic: Present: other (reported chronic left lower extremity lymphedema) Medical,Surgical,& Family Hx - Medical History Cardio: History of: CAD, Hypertension Psychological: History of: Anxiety Disorders, Depression Neurology: History of: Cerebrovascular Accident (brain stem stroke 1996) HEENT: History of: Ear Problem (stopped up ears, no follow up), Eye Problem ( right eye cornia causing blindness) Endocrine: History of: Diabetes Mellitus (NIDDM), Dyslipidemia, Thyroid Disorder Respiratory: History of: Asthma, Bronchitis, Obstructive Sleep Apnea Genitourinary: History of: Kidney Stones, Recurring Urinary Tract Infections Musculoskeletal: No history of: Amputation Hematology: History of: Anemia Other: History of: Anesthesia Reactions (unable to breath after surgery before) , Skin Problems (forehead dry area) - Surgical History Cardiac Surgeries: Sugical HX of: Cardiac Surgery, Carotid Endarterectomy Thoracic Surgeries: Surgical HX of;: Kidney (Renal Surgery) Patient denies;: Organ Transplant, Lobectomy HEENT Surgeries: Surgical HX of: Carotid Endarterectomy Abdominal Surgeries: Patient denies: Abdominal Surgery Reproductive Surgeries: Patient denies;: Hysterectomy Orthopedic Surgeries: Patient denies;: Implanted Devices, Orthopedic Surgery, Spinal Surgery, Total Hip Replacement, Total Knee Replacement - Family History Family History: Denies;: Additional Family History - Social History Smoking Status: Never smoker Frequency of Alcohol Use: None Type of Drug Use: None Physical Examination Vital Signs Temp Pulse Resp BP Pulse Ox 97.2 F L 71 18 168/94 90 L 07/19/16 21:46 07/19/16 21:46 07/19/16 21:46 07/19/16 21:46 07/19/16 21:46 Result/EKG - Labs CBC & BMP: 07/20/16 05:51 07/20/16 05:51 Labs: Laboratory Results - last 24 hr 07/20/16 07/20/16 07/21/16 15:26 19:20 07:55 Circ Anticoag PTT POC Glucose 129 H 198 H 111 H 07/21/16 07/21/16 10:58 14:15 Circ Anticoag PTT 24.1 POC Glucose 172 H
[2016-07-21] MEDS ORDERED: ALTEPLASE 2 MG VIAL ONE (16:16)
[2016-07-21] MEDS ORDERED: LIDOCAINE 1% 20 ML VIAL ONE ×2 (16:21→17:19)
[2016-07-21] MEDS ORDERED: MIDAZOLAM 2 MG/2 ML VIAL ONE (16:24)
[2016-07-21] MEDS ORDERED: HYDROmorphone 2 MG/1 ML VIAL ONE (16:25)
[2016-07-21] MEDS ORDERED: ALTEPLASE 12 MG in SODIUM CHLORIDE 0.9% 240 ML IV SCH ×2 (17:31→17:39)
[2016-07-21] MEDS ORDERED: HEPARIN 5,000 UNIT/1 ML VIAL ONE (18:02)
--- NOTE | 2016-07-21 18:03 | Cardiology Operative Report ---
Date of Procedure:: 07/21/16 Post-op diagnosis: same Procedure: Procedures performed: Placement of right and left pulmonary artery catheters for thrombolysis Indication: Bilateral submassive pulmonary emboli with secondary acute cor pulmonale Brief clinical summary: Mrs. Orourke is a 71-year-old with significant vascular history who presented with 6 days of increasing dyspnea on exertion and episodes of presyncope noted to have submassive pulmonary emboli on CT scan with a large right ventricle. Description of procedure: After obtaining informed consent, patient was the slabber with the right and left groin were prepped and draped in the usual sterile fashion. Next I attempted to place a 12 Peruvian sheath in the right femoral vein though would not pass successfully. Therefore I changed out to a 7 Peruvian sheath which was successful. There was some oozing around the sheath, so I eventually upsized to a 9 Peruvian which was advanced without difficulty and there was no further oozing around the sheath. Next a long J-wire with a bent pigtail catheter was advanced the right ventricle with the wire being manipulated left pulmonary artery with only modest difficulty. Next the cath was removed and an EKOS catheter was advanced and the wire was removed. Next the coil was then advanced and screwed in place. I then placed a short 6 Peruvian sheath in the left femoral vein using a Seldinger technique after the patient received IV sedation and local anesthetic. The same long wire was advanced into the right PDA using the bent pigtail catheter to manipulated there. The catheter was then removed EKOS catheter was advanced into place. The wire was then removed, and the EKOS coil was advanced and screwed into place. The TPA drips were then started at 1 mg per hour into each catheter. The flush lines were started and the patient was eventually transferred to the ICU/CCU in good condition. I discussed results with the family. Impression: 1. Bilateral submassive pulmonary emboli with secondary cor pulmonale 2. Placement of right and left pulmonary artery catheters (EKOS) for the purpose of thrombolysis of bilateral pulmonary emboli Recommendation discussion: I believe achieved good placement of the catheters in the right and left pulmonary artery. She'll be watched closely in the CCU receiving her TPA drip to each side at 1 mg per hour. I plan to pull them in the morning and start her on Eliquis 10 mg twice a day for the next week, to be decreased to 5 millions twice a day after that time. We will leave the heparin infusion on until early childhood director when I pull her catheters. Anesthesia: minimal conscious sedation Surgeon / Physician: Juan Francisco Duggan Leathersmith: other Estimated blood loss: minimal Specimens: none sent Condition: stable Disposition: ICU/CCU
[2016-07-21 19:21] LABS: Apearance,Urine Slightly Hazy (Clear); Bacteria,Urine Occasional /HPF (Few); Bilirubin,Urine Negative (Negative); Blood, Urine Large mg/dL (Negative); Glucose,Urine (UA) Negative (Negative); Ketones,Urine Negative (Negative); Mucus,Urine Occasional /LPF (Occasional); Nitrite,Urine Negative (Negative); Protein,Urine Negative; RBC,Urine 506 /HPF (0-4); Squamous Epithelial Cell,Urine Occasional /HPF (0-10); Urine Color Straw (Yellow); Urine Specific Gravity 1.025 (1.001-1.035); Urine Urobilinogen < 2.0 EU/DL (0.2-1.0); WBC,Urine 7 /HPF (0-6)
[2016-07-21] MEDS ORDERED: ATENOLOL 50 MG TABLET PO SCH (21:00)
[2016-07-22] MEDS: ALBUTEROL/IPRATROPIUM 3 ML NEB RESP TX SCH ×4 (01:07→20:00)
[2016-07-22 04:49] LABS: Basophils % 0.4 % (0.0-0.8); Eosinophils # 0.6 10*3/uL (0.0-0.87); Eosinophils % 5.2 % (0.00-10.9); Hematocrit 31.6 VOL% (35.7-47.0); Immature Granulocytes % 0.6 %; Immature Granulocytes Absolute 0.07 #; Lymphocytes # 1.5 10*3/uL (1.4-4.0); Lymphocytes % 13.5 % (21.3-54.2); Mean Corpuscular HGB Conc 31.6 GM/DL (32-36); Mean Corpuscular Hemoglobin 31 PG (27-34); Mean Corpuscular Volume 96.6 FL (87-102); Mean Platelet Volume 10.1 FL (9.6-12.0); Monocytes % 8.6 % (1.7-12.7); Neutrophils # 7.9 10*3/uL (1.4-7.4); Neutrophils % 71.7 % (38.7-73.9); Platelet Count 207 10*3/uL (130-400); Red Blood Count 3.27 10*6/uL (3.8-5.5); Red Cell Distribution Width 13.3 % (9.3-17.3); White Blood Count 11.1 10*3/uL (4.5-13.71)
[2016-07-22] MEDS ORDERED: SODIUM CHLORIDE 0.9% 500 ML IV ONE ×3 (05:30→15:50)
[2016-07-22 05:58] LABS: Calcium 8.1 MG/DL (8.5-10.1); Magnesium 2.1 MG/DL (1.8-2.4); Osmolality,Calculated 289.8 MOS/KG (273-304)
[2016-07-22] MEDS ORDERED: HYDROmorphone 2 MG/1 ML VIAL ONE (06:10)
[2016-07-22] MEDS ORDERED: HYDROmorphone 2 MG/1 ML VIAL IV ONE (06:13)
[2016-07-22] MEDS: CEFEPIME 1,000 MG in SODIUM CHLORIDE 0.9% 100 ML IV SCH ×2 (06:52→18:30)
[2016-07-22] MEDS ORDERED: NALOXONE 0.4 MG/ML VIAL ONE (06:57)
--- NOTE | 2016-07-22 07:00 | Cardiology Progress Note ---
Assessment and Plan (1) Pulmonary emboli Status: Acute Assessment and plan: 1. 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 Her CT chest shows large bilateral proximal pulmonary emboli with right ventricular enlargement suggestive of acute cor pulmonale secondary to this 2. Currently on heparin infusion, will with significant dyspnea with any movement, removal of her oxygen 3. Ms. Orourke is followed by Dr. Valentine in clinic, therefore her last stress test was in [place] in 2007 and showed "no need for a catheterization" I discussed with Mrs. Orourke and her family the risks and benefits of pulmonary artery catheter placement and catheter directed from the lysis including but not limited to: stroke vascular damage significant bleeding. I explained that the bleeding risk is similar to traditional therapy that she is receiving now. I explained that her course would be significantly shorter by approximately 50% with catheter directed thrombolysis versus traditional medical therapy. I answered many questions regarding the procedure, and she finally decided to proceed this afternoon. 07/22/2016: 1. Mrs. Orourke is status post successful catheter directed thrombolysis of her bilateral pulmonary emboli, with some modest decrease shortness of breath 2. Obvious hematoma at the right groin sheath site which I told him the 12 Finnish sheath would not computer operations technician in the procedure, and so a 9 Finnish sheath was placed without difficulty, and was likely some persistent "oozing" around the sheath given she was on heparin and TPA drip. Her TPA drip finished around 430 a.m., and I stopped her heparin drip around 515 a.m. We performed prolonged manual pressure to ensure no further bleeding. I will order an ultrasound of the site, to evaluate for any vascular injury. 3. Hypotension noted during the night, possibly related to right heart failure , worsened by some blood loss at the right groin access site; given normal saline bolus this morning. 4. I will hold starting Eliquis until we can be confident that she is not bleeding any further from her right femoral vein access site 5. Blood pressure systolic is dropped intermittently to the 70s and 80s systolic during the night and this morning; will hold this morning's dose, and then decrease atenolol to 25 mg twice a day; check her heart rate is been in the upper 50s throughout the night. Current Visit: Yes (2) S/P CABG x 2 Status: Acute Current Visit: Yes (3) H/O carotid endarterectomy Status: Acute Current Visit: Yes (4) History of CVA (cerebrovascular accident) Status: Acute Current Visit: Yes Cardiology - PN: Subj Interval history: Symptomatically Mrs. Orourke had a good night with less shortness of breath. However she had some oozing at her left IV site as well as around her right femoral vein sheath with some obvious hematoma this morning. She's had no chest pain or palpitations. She is alert and oriented during my examination. Exam (Progress Note) - Constitutional Vitals: Period Temp Pulse Resp BP Sys/Quintanilla Pulse Ox Last 24 Hr 97.4 F-98.8 F 51-87 12-20 82-155/52-88 91-98 General appearance: no acute distress, over weight - Head Head exam: Present: normal inspection, normocephalic, atraumatic - Neck Neck exam: Present: normal inspection - Respiratory Respiratory exam: Present: clear to auscultation bilaterally (supine) - Cardiovascular Cardiovascular exam: Present: bradycardia. Absent: diastolic murmur, rubs - GI/Abdominal GI/Abdominal exam: Present: soft. Absent: tenderness - Extremities Exam Extremities exam: Present: edema (unilateral edema (chronic)), other (hematoma with ecchymosis of the right femoral vein sheath, and some modest oozing around the sheath) - Neurological Exam Neurological exam: Present: alert, oriented X3 Result/EKG - Labs CBC & BMP: 07/22/16 04:38 07/22/16 04:38 Labs: Laboratory Results - last 24 hr 07/21/16 07/21/16 07/21/16 07:55 10:58 14:15 WBC RBC Hgb Hct MCV MCH MCHC RDW Plt Count MPV Neut % (Auto) Lymph % (Auto) Esmeralda % (Auto) Eos % (Auto) Baso % (Auto) Neut # (Auto) Lymph # (Auto) Esmeralda # (Auto) Eos # (Auto) Baso # (Auto) Immature Gran % Nucleated RBC % Immature Gran # Nucleated RBCs # Fibrinogen Circ Anticoag PTT 24.1 Sodium Potassium Chloride Carbon Dioxide Anion Gap BUN Creatinine GFR Calculation BUN/Creatinine Ratio Glucose POC Glucose 111 H 172 H Calculated Osmolality Calcium Magnesium Urine Color Urine Appearance Urine pH Ur Specific [place] Urine Protein Urine Glucose (UA) Urine Ketones Urine Blood Urine Nitrate Urine Bilirubin Urine Urobilinogen Urine Leukocytes Urine RBC Urine WBC Ur Squamous Epith Cells Urine Bacteria Urine Mucus Ur Culture Indicated? 07/21/16 07/21/16 07/21/16 16:13 19:10 22:05 WBC RBC Hgb Hct MCV MCH MCHC RDW Plt Count MPV Neut % (Auto) Lymph % (Auto) Esmeralda % (Auto) Eos % (Auto) Baso % (Auto) Neut # (Auto) Lymph # (Auto) Esmeralda # (Auto) Eos # (Auto) Baso # (Auto) Immature Gran % Nucleated RBC % Immature Gran # Nucleated RBCs # Fibrinogen Circ Anticoag PTT 82.3 H D Sodium Potassium Chloride Carbon Dioxide Anion Gap BUN Creatinine GFR Calculation BUN/Creatinine Ratio Glucose POC Glucose 134 H Calculated Osmolality Calcium Magnesium Urine Color Straw Urine Appearance Slightly hazy Urine pH 6.0 Ur Specific [place] 1.025 Urine Protein Negative Urine Glucose (UA) Negative Urine Ketones Negative Urine Blood Large Urine Nitrate Negative Urine Bilirubin Negative Urine Urobilinogen < 2.0 H Urine Leukocytes Negative Urine RBC 506 Urine WBC 7 Ur Squamous Epith Cells Occasional Urine Bacteria Occasional Urine Mucus Occasional Ur Culture Indicated? Results to follow 07/21/16 07/21/16 07/22/16 22:12 23:53 04:38 WBC 11.1 RBC 3.27 L D Hgb 10.0 L D Hct 31.6 L MCV 96.6 MCH 31 MCHC 31.6 L RDW 13.3 Plt Count 207 MPV 10.1 Neut % (Auto) 71.7 Lymph % (Auto) 13.5 L Esmeralda % (Auto) 8.6 Eos % (Auto) 5.2 Baso % (Auto) 0.4 Neut # (Auto) 7.9 H Lymph # (Auto) 1.5 Esmeralda # (Auto) 1.0 H Eos # (Auto) 0.6 Baso # (Auto) 0.0 Immature Gran % 0.6 Nucleated RBC % 0.0 Immature Gran # 0.07 Nucleated RBCs # 0.00 Fibrinogen Circ Anticoag PTT 96.9 H Sodium Potassium Chloride Carbon Dioxide Anion Gap BUN Creatinine GFR Calculation BUN/Creatinine Ratio Glucose POC Glucose 113 H Calculated Osmolality Calcium Magnesium Urine Color Urine Appearance Urine pH Ur Specific [place] Urine Protein Urine Glucose (UA) Urine Ketones Urine Blood Urine Nitrate Urine Bilirubin Urine Urobilinogen Urine Leukocytes Urine RBC Urine WBC Ur Squamous Epith Cells Urine Bacteria Urine Mucus Ur Culture Indicated? 07/22/16 07/22/16 07/22/16 04:38 04:38 04:38 WBC RBC Hgb Hct MCV MCH MCHC RDW Plt Count MPV Neut % (Auto) Lymph % (Auto) Esmeralda % (Auto) Eos % (Auto) Baso % (Auto) Neut # (Auto) Lymph # (Auto) Esmeralda # (Auto) Eos # (Auto) Baso # (Auto) Immature Gran % Nucleated RBC % Immature Gran # Nucleated RBCs # Fibrinogen 177 L Circ Anticoag PTT 97.6 H Sodium 144 Potassium 4.0 Chloride 110 H Carbon Dioxide 22 Anion Gap 16.0 H BUN 16 Creatinine 0.60 GFR Calculation 97 BUN/Creatinine Ratio 26.00 H Glucose 145 H POC Glucose Calculated Osmolality 289.8 Calcium 8.1 L Magnesium 2.1 Urine Color Urine Appearance Urine pH Ur Specific [place] Urine Protein Urine Glucose (UA) Urine Ketones Urine Blood Urine Nitrate Urine Bilirubin Urine Urobilinogen Urine Leukocytes Urine RBC Urine WBC Ur Squamous Epith Cells Urine Bacteria Urine Mucus Ur Culture Indicated?
--- NOTE | 2016-07-22 07:05 | Event Note ---
Procedure: Removal of right and left EKOS pulmonary artery catheters (used for catheter directed thrombolyzes pulmonary embolus) Description: PA catheters were freed up from suture and adherent and removed. Right femoral vein sheath (9 Ecuadorean) was then removed with prolonged manual pressure due to hematoma and bleeding at the access site. Left femoral vein sheath (6 Ecuadorean) was removed, and hemostasis was obtained with manual pressure.
--- NOTE | 2016-07-22 07:49 | Physician Query Form ---
CLICK EDIT DOCUMENT TO SELECT QUERY ANSWER --> OK --> SIGN PROVIDERS: Make your selection(s) from the choices in EACH section by typing an "x" and enter comments in the comment section. Please use your independent medical judgment in providing your response. This request does not imply that any particular answer is desired or expected. CLINICAL INDICATORS: (Providers should not edit this section) The medical record indicates that the patient was admitted with dizziness, found to have a PE, "hypoxemia based on 02 saturation improved with oxygen" and the patient was placed on 6 liters per simple mask on the . If possible, please further clarify the type and acuity of respiratory diagnosis : ACUITY: ( x) Acute ( ) Chronic ( ) Acute on Chronic TYPE: ( ) Respiratory failure with hypoxia ( ) Respiratory failure with hypercapnia ( ) Respiratory Arrest ( ) Postprocedural/postoperative respiratory failure ( ) Respiratory Insufficiency ( ) ARDS (Adult/Acute Respiratory Distress Syndrome) ( x) Other, please specify: ( ) Clinically unable to determine Recognized criteria for respiratory failure PH <7.35 or >7.45 PO2 <60 PCO2 >50 RR >24 O2 Sat <90% on RA or <95% on O2 Use of accessory muscles Unable to speak in full sentences Intubation is not required COMMENTS:acute pulmonary embolus Use of terms such as suspected, likely, or probable (associated with a specific diagnosis that is being evaluated, monitored, or treated as if it exists) are acceptable and can be restated in the discharge summary if not ruled out. MTDD
[2016-07-22 07:53] LABS: Basophils # 0.1 10*3/uL (0.0-0.2); Basophils % 0.5 % (0.0-0.8); Eosinophils # 0.5 10*3/uL (0.0-0.87); Eosinophils % 4.1 % (0.00-10.9); Hematocrit 32.5 VOL% (35.7-47.0); Immature Granulocytes % 0.8 %; Immature Granulocytes Absolute 0.09 #; Lymphocytes # 1.5 10*3/uL (1.4-4.0); Lymphocytes % 12.7 % (21.3-54.2); Mean Corpuscular HGB Conc 30.8 GM/DL (32-36); Mean Corpuscular Hemoglobin 31 PG (27-34); Mean Corpuscular Volume 100.3 FL (87-102); Mean Platelet Volume 10.1 FL (9.6-12.0); Monocytes # 0.9 10*3/uL (0.11-0.8); Neutrophils # 8.7 10*3/uL (1.4-7.4); Neutrophils % 73.9 % (38.7-73.9); Platelet Count 206 10*3/uL (130-400); Red Blood Count 3.24 10*6/uL (3.8-5.5); Red Cell Distribution Width 13.5 % (9.3-17.3); White Blood Count 11.7 10*3/uL (4.5-13.71)
[2016-07-22] MEDS: LEVOTHYROXINE 200 MCG TABLET PO SCH (08:00)
[2016-07-22] MEDS: INSULIN REGULAR 100 UNIT/ML SUBCUT SCH ×4 (08:00→20:42)
--- NOTE | 2016-07-22 08:55 | Ultrasound Report ---
History is right groin hematoma following venous access Imaging of the right inguinal regions shows diffuse soft tissue swelling, limiting visualization. The right common femoral artery and vein are patent. No focal pseudoaneurysm seen.. There is a poor visualization of flow in the common femoral artery with a likely monophasic waveform with spectral broadening raising question of underlying iliac stenosis. PROCEDURE INTERPRETED AT [facility], [place] DEPARTMENT OF RADIOLOGY Final Report Signed by: Dr. Kasey Boykin
[2016-07-22] MEDS ORDERED: SODIUM CHLORIDE 0.9% 1,000 ML IV ONE (09:40)
[2016-07-22] MEDS: amLODIPine 10 MG TABLET PO SCH (10:37)
[2016-07-22] MEDS: PANTOPRAZOLE 40 MG TABLET PO SCH (10:47)
[2016-07-22] MEDS: GLIMEPIRIDE 2 MG TABLET PO SCH (10:47)
[2016-07-22] MEDS: FERROUS SULFATE 325 MG TABLET PO SCH ×3 (10:47→20:42)
[2016-07-22] MEDS: DULoxetine 30 MG CAPSULE PO SCH (10:48)
[2016-07-22] MEDS: ATORVASTATIN 40 MG TABLET PO SCH (10:49)
[2016-07-22] MEDS: APIXABAN 5 MG TABLET PO SCH ×2 (11:02→20:42)
--- NOTE | 2016-07-22 15:17 | Hospitalist Progress Note ---
Assessment and Plan - Time spent with patient Time spent with patient: Greater than 30 minutes (1) Pulmonary emboli Status: Acute Assessment and plan: Continue current management. Patient's currently on eliquis. Appreciate cardiology's assistance. Current Visit: Yes (2) Hypotension Status: Acute Assessment and plan: Etiology is unclear, will continue to bolus. Hold all hypertensive medications. No indication of sepsis. Current Visit: Yes (3) UTI (urinary tract infection) Status: Acute Assessment and plan: Continue current management. Current Visit: Yes (4) Hypothyroidism Status: Acute Current Visit: Yes (5) Type 2 diabetes mellitus Status: Chronic Assessment and plan: Continue current management. Current Visit: Yes Hospitalist: Subjective Interval history: No complaints. EKOS catheter removed and hematoma at catheter insertion site was controlled with pressure. Blood pressure upper 70s systolic. Asymptomatic. Received 1500cc bolus. Exam - Constitutional Vitals: Period Temp Pulse Resp BP Sys/Quintanilla Pulse Ox Last 24 Hr 97.4 F-98.8 F 55-67 11-20 77-155/45-88 91-99 General appearance: no acute distress - Head Head exam: Present: normocephalic, atraumatic - Eye Eye exam: Present: EOMI Pupils: Present: AMRIT - ENT ENT exam: Present: normal exam - Neck Neck exam: Present: normal inspection - Respiratory Respiratory exam: Present: clear to auscultation bilaterally. Absent: rhonchi, wheezes - Cardiovascular Cardiovascular exam: Present: regular rate and rhythm, systolic murmur. Absent : gallop, rubs - GI/Abdominal GI/Abdominal exam: Present: normal bowel sounds, soft. Absent: distended, firm , guarding, tenderness, rebound - Extremities Exam Extremities exam: Present: other (right groind hematoma). Absent: calf tenderness, edema Results - Labs CBC & BMP: 07/22/16 07:45 07/22/16 04:38 Lab Results: I have reviewed the past 24 hour labs
[2016-07-22 18:27] LABS: Basophils % 0.3 % (0.0-0.8); Eosinophils # 0.4 10*3/uL (0.0-0.87); Eosinophils % 4.3 % (0.00-10.9); Hematocrit 25.2 VOL% (35.7-47.0); Immature Granulocytes % 0.7 %; Immature Granulocytes Absolute 0.07 #; Lymphocytes # 1.6 10*3/uL (1.4-4.0); Lymphocytes % 16.5 % (21.3-54.2); Mean Corpuscular Hemoglobin 32 PG (27-34); Mean Platelet Volume 10.5 FL (9.6-12.0); Monocytes # 0.8 10*3/uL (0.11-0.8); Monocytes % 8.5 % (1.7-12.7); Neutrophils # 6.9 10*3/uL (1.4-7.4); Neutrophils % 69.7 % (38.7-73.9); Platelet Count 162 10*3/uL (130-400); Red Blood Count 2.47 10*6/uL (3.8-5.5); Red Cell Distribution Width 13.6 % (9.3-17.3); White Blood Count 9.9 10*3/uL (4.5-13.71)
[2016-07-22 18:28] LABS: Hemoglobin 7.8 GM/DL (12.0-16.0)
[2016-07-22] MEDS ORDERED: SODIUM CHLORIDE 0.9% 250 ML IV PRN (19:06)
[2016-07-23] MEDS: ALBUTEROL/IPRATROPIUM 3 ML NEB RESP TX SCH ×4 (01:14→20:03)
[2016-07-23 04:50] LABS: Basophils % 0.3 % (0.0-0.8); Eosinophils # 0.5 10*3/uL (0.0-0.87); Eosinophils % 5.5 % (0.00-10.9); Hematocrit 30.4 VOL% (35.7-47.0); Hemoglobin 9.4 GM/DL (12.0-16.0); Immature Granulocytes % 0.9 %; Immature Granulocytes Absolute 0.08 #; Lymphocytes # 1.3 10*3/uL (1.4-4.0); Lymphocytes % 13.8 % (21.3-54.2); Mean Corpuscular HGB Conc 30.9 GM/DL (32-36); Mean Corpuscular Hemoglobin 29 PG (27-34); Mean Platelet Volume 10.2 FL (9.6-12.0); Monocytes # 0.8 10*3/uL (0.11-0.8); Neutrophils # 6.4 10*3/uL (1.4-7.4); Neutrophils % 70.5 % (38.7-73.9); Platelet Count 133 10*3/uL (130-400); Red Cell Distribution Width 15.6 % (9.3-17.3); White Blood Count 9.1 10*3/uL (4.5-13.71)
[2016-07-23 05:30] LABS: Calcium 7.7 MG/DL (8.5-10.1); Osmolality,Calculated 292.4 MOS/KG (273-304); Potassium 3.7 MMOL/L (3.5-5.1)
[2016-07-23] MEDS: CEFEPIME 1,000 MG in SODIUM CHLORIDE 0.9% 100 ML IV SCH ×2 (06:00→18:30)
[2016-07-23] MEDS: LEVOTHYROXINE 200 MCG TABLET PO SCH (06:04)
[2016-07-23] MEDS: INSULIN REGULAR 100 UNIT/ML SUBCUT SCH ×4 (07:26→20:44)
[2016-07-23] MEDS: ATORVASTATIN 40 MG TABLET PO SCH (08:39)
[2016-07-23] MEDS: PANTOPRAZOLE 40 MG TABLET PO SCH (08:40)
[2016-07-23] MEDS: GLIMEPIRIDE 2 MG TABLET PO SCH (08:40)
[2016-07-23] MEDS: FERROUS SULFATE 325 MG TABLET PO SCH ×3 (08:40→20:44)
[2016-07-23] MEDS: APIXABAN 5 MG TABLET PO SCH ×2 (08:40→20:44)
[2016-07-23] MEDS: DULoxetine 30 MG CAPSULE PO SCH (08:41)
--- NOTE | 2016-07-23 11:23 | Hospitalist Progress Note ---
Assessment and Plan (1) Type 2 diabetes mellitus Status: Chronic Current Visit: Yes (2) Pulmonary emboli Status: Acute Assessment and plan: July 21 catheter directed thrombolysis, preserved RV systolic performance by echocardiogram. Current Visit: Yes (3) Atherosclerotic cardiovascular disease Status: Chronic Assessment and plan: History of ACBG, carotid endarterectomy Current Visit: Yes Hospitalist: Subjective Interval history: 71 yo female type 2 diabetes mellitus, remote ACBG presenting with sterile pyuria, hypoxemia with activity and orthostatic dizziness. Found to have bilateral thromboembolae on CT scan with possible area of right upper lobe lung damage with catheter directed thrombolysis 07/21. Echocardiogram demonstrated preserved RV systolic performance without reported pulmonary hypertension. Doing well post-procedure and stablization of groin hematoma and transfusion. Initiation of Eliquis has begun. Exam - Constitutional Vitals: Period Temp Pulse Resp BP Sys/Quintanilla Pulse Ox Last 24 Hr 96.7 F-99.4 F 56-77 10-20 87-134/37-82 92-99 General appearance: over weight - Respiratory Respiratory exam: Present: clear to auscultation bilaterally. Absent: rales, rhonchi, wheezes - Cardiovascular Cardiovascular exam: Present: regular rate and rhythm, systolic murmur (2/6 aortic sclerosis) - GI/Abdominal GI/Abdominal exam: Present: normal bowel sounds - Extremities Exam Extremities exam: Absent: edema - Neurological Exam Neurological exam: Present: alert, oriented X3 Results - Labs CBC & BMP: 07/23/16 04:17 07/23/16 04:17
--- NOTE | 2016-07-23 13:40 | Physician Query Form ---
CLICK EDIT DOCUMENT TO SELECT QUERY ANSWER --> OK --> SIGN Aaliyah Covarrubias RN, CCDS Certified Clinical Human Relations Professor W) [phone] (f) [phone] [email or web address] PROVIDERS: Make your selection(s) from the choices in EACH section by typing an "x" and enter comments in the comment section. Please use your independent medical judgment in providing your response. This request does not imply that any particular answer is desired or expected. CLINICAL INDICATORS: (Providers should not edit this section) The medical record indicates that the patient was admitted with "bilateral extensive pulmonary embolism", had EKOS, later HH dropped to 7.8/ 25.2 on the , Hypotension on the , and the patient was given 1500cc of fluid/ 2 units of blood given. Based on the above, could you clarify which of the following conditions you are evaluating, treating, and/or monitoring? ( ) Blood loss anemia (x ) acute ( ) chronic ( ) acute on chronic ( ) Acute blood loss anemia on baseline chronic anemia ( ) Acute blood loss anemia as a complication of a procedure ( ) Iron deficiency anemia not associated with blood loss ( ) Dilutional anemia due to IV fluids ( ) Anemia due to chemotherapy ( ) Anemia due to neoplastic disease ( ) Anemia due to chronic kidney disease ( ) Pernicious anemia ( ) Aplastic anemia ( ) Hemolytic anemia ( ) immune ( ) non-immune - please specify cause: ( ) Anemia due to other condition, please specify: ( ) Clinically unable to determine COMMENTS: Use of terms such as suspected, likely, or probable (associated with a specific diagnosis that is being evaluated, monitored, or treated as if it exists) are acceptable and can be restated in the discharge summary if not ruled out. MTDD
--- NOTE | 2016-07-23 19:35 | Cardiology Progress Note ---
Hussein Polk Rachel, RN, am scribing for, and in the presence of, Margoth Sepulveda MD 19:35. Assessment and Plan (1) Pulmonary emboli Status: Acute Assessment and plan: Patient is status post successful catheter directed thrombolysis of her bilateral pulmonary emboli. She is doing well today and without all complaints. Will continue current therapy. Current Visit: Yes (2) H/O carotid endarterectomy Status: Chronic Current Visit: Yes (3) History of CVA (cerebrovascular accident) Status: Chronic Current Visit: Yes (4) S/P CABG x 2 Status: Chronic Current Visit: Yes Cardiology - PN: Subj Interval history: Patient is status post successful catheter directed thrombolysis of her bilateral pulmonary emboli. Today she doing well and in no acute acute distress. She denies shortness of breath, chest pain, and palpitations. She states her breathing is back to normal. Bilateral groins are stable. Right groin has significant bruising. US was done yesterday, no focal pseudoaneurysm seen. Bilateral DP and PT pulses 2+ noted. She is being anticoagulated with Eliquis and tolerating well. Exam (Progress Note) - Constitutional Vitals: Period Temp Pulse Resp BP Sys/Quintanilla Pulse Ox Last 24 Hr 96.7 F-99.4 F 56-74 10-20 77-134/37-82 92-99 General appearance: normal weight, no acute distress - Head Head exam: Present: normal inspection, normocephalic, atraumatic - Eye Pupils: Present: AMRIT. Absent: constricted, dilated, fixed, irregular, unequal - Neck Neck exam: Present: normal inspection. Absent: lymphadenopathy, meningismus, tenderness - Respiratory Respiratory exam: Present: clear to auscultation bilaterally. Absent: accessory muscle use, rales, rhonchi, stridor, wheezes - Cardiovascular Cardiovascular exam: Present: regular rate and rhythm. Absent: bradycardia, carotid bruit, diastolic murmur, gallop, irregular rhythm, rubs, systolic murmur , tachycardia - GI/Abdominal GI/Abdominal exam: Present: normal bowel sounds, soft. Absent: distended, firm , mass, tenderness - Extremities Exam Extremities exam: Present: normal inspection, other (significant bruising noted to right groin, 2+ DP and PT pulses palpated bilaterally. ). Absent: edema - Neurological Exam Neurological exam: Present: alert, oriented X3 - Psychiatric Psychiatric exam: Present: normal affect, normal mood. Absent: agitated, anxious - Skin Skin exam: Present: normal color, warm, dry Result/EKG - Labs CBC & BMP: 07/23/16 04:17 07/23/16 04:17 Lab Results: I have reviewed the past 24 hour labs Labs: Laboratory Results - last 24 hr 07/22/16 07/22/16 07/22/16 07:44 10:40 11:32 WBC RBC Hgb Hct MCV MCH MCHC RDW Plt Count MPV Neut % (Auto) Lymph % (Auto) Ector % (Auto) Eos % (Auto) Baso % (Auto) Neut # (Auto) Lymph # (Auto) [place] # (Auto) Eos # (Auto) Baso # (Auto) Immature Gran % Nucleated RBC % Immature Gran # Nucleated RBCs # Circ Anticoag PTT 23.0 D Sodium Potassium Chloride Carbon Dioxide Anion Gap BUN Creatinine GFR Calculation BUN/Creatinine Ratio Glucose POC Glucose 178 H 188 H Calculated Osmolality Calcium Blood Type Antibody Screen Crossmatch 07/22/16 07/22/16 07/22/16 16:41 17:56 19:31 WBC 9.9 RBC 2.47 L D Hgb 7.8 L D Hct 25.2 L MCV 102.0 MCH 32 MCHC 31.0 L RDW 13.6 Plt Count 162 D MPV 10.5 Neut % (Auto) 69.7 Lymph % (Auto) 16.5 L Ector % (Auto) 8.5 Eos % (Auto) 4.3 Baso % (Auto) 0.3 Neut # (Auto) 6.9 Lymph # (Auto) 1.6 Ector # (Auto) 0.8 Eos # (Auto) 0.4 Baso # (Auto) 0.0 Immature Gran % 0.7 Nucleated RBC % 0.0 Immature Gran # 0.07 Nucleated RBCs # 0.00 Circ Anticoag PTT Sodium Potassium Chloride Carbon Dioxide Anion Gap BUN Creatinine GFR Calculation BUN/Creatinine Ratio Glucose POC Glucose 209 H Calculated Osmolality Calcium Blood Type O POSITIVE Antibody Screen Negative Crossmatch See Detail 07/22/16 07/22/16 07/23/16 19:35 20:14 04:17 WBC 9.1 RBC 3.20 L D Hgb 9.4 L D Hct 30.4 L MCV 95.0 MCH 29 MCHC 30.9 L RDW 15.6 Plt Count 133 MPV 10.2 Neut % (Auto) 70.5 Lymph % (Auto) 13.8 L Ector % (Auto) 9.0 Eos % (Auto) 5.5 Baso % (Auto) 0.3 Neut # (Auto) 6.4 Lymph # (Auto) 1.3 L Ector # (Auto) 0.8 Eos # (Auto) 0.5 Baso # (Auto) 0.0 Immature Gran % 0.9 Nucleated RBC % 0.0 Immature Gran # 0.08 Nucleated RBCs # 0.00 Circ Anticoag PTT Sodium Potassium Chloride Carbon Dioxide Anion Gap BUN Creatinine GFR Calculation BUN/Creatinine Ratio Glucose POC Glucose 228 H Calculated Osmolality Calcium Blood Type O POSITIVE Antibody Screen Crossmatch 07/23/16 07/23/16 04:17 07:17 WBC RBC Hgb Hct MCV MCH MCHC RDW Plt Count MPV Neut % (Auto) Lymph % (Auto) E[place] % (Auto) Eos % (Auto) Baso % (Auto) Neut # (Auto) Lymph # (Auto) Ector # (Auto) Eos # (Auto) Baso # (Auto) Immature Gran % Nucleated RBC % Immature Gran # Nucleated RBCs # Circ Anticoag PTT Sodium 147 H Potassium 3.7 Chloride 115 H Carbon Dioxide 21 Anion Gap 14.7 BUN 16 Creatinine 0.50 L GFR Calculation 103 BUN/Creatinine Ratio 32.00 H Glucose 102 POC Glucose 104 Calculated Osmolality 292.4 Calcium 7.7 L Blood Type Antibody Screen Crossmatch - EKG EKG results: interpreted by me, sinus rhythm I, Margoth Sepulveda MD, personally performed the services described in this documentation, ascribed by Mary Ann Savage RN in my presence, and it is both accurate and complete [id number] .
[2016-07-24] MEDS: ALBUTEROL/IPRATROPIUM 3 ML NEB RESP TX SCH ×4 (00:52→20:15)
[2016-07-24] MEDS: CEFEPIME 1,000 MG in SODIUM CHLORIDE 0.9% 100 ML IV SCH ×2 (06:00→17:50)
[2016-07-24] MEDS: LEVOTHYROXINE 200 MCG TABLET PO SCH (06:01)
[2016-07-24] MEDS: INSULIN REGULAR 100 UNIT/ML SUBCUT SCH ×4 (07:23→21:38)
[2016-07-24] MEDS: ATORVASTATIN 40 MG TABLET PO SCH (08:11)
[2016-07-24] MEDS: FERROUS SULFATE 325 MG TABLET PO SCH ×3 (08:11→21:37)
[2016-07-24] MEDS: APIXABAN 5 MG TABLET PO SCH ×2 (08:11→21:37)
[2016-07-24] MEDS: DULoxetine 30 MG CAPSULE PO SCH (08:12)
[2016-07-24] MEDS: GLIMEPIRIDE 2 MG TABLET PO SCH (08:12)
[2016-07-24] MEDS: PANTOPRAZOLE 40 MG TABLET PO SCH (08:12)
--- NOTE | 2016-07-24 08:34 | Hospitalist Progress Note ---
Assessment and Plan (1) Type 2 diabetes mellitus Status: Chronic Current Visit: Yes (2) Pulmonary emboli Status: Acute Assessment and plan: July 21 catheter directed thrombolysis, preserved RV systolic performance by echocardiogram. Current Visit: Yes (3) Atherosclerotic cardiovascular disease Status: Chronic Assessment and plan: History of ACBG, carotid endarterectomy Current Visit: Yes Hospitalist: Subjective Interval history: 71 yo female found to have bilateral pulmonary embolae receiving catheter directed thrombolysis 07/21. Has remained stable following initial site bleeding. CT angiogram was reported to show possible right upper lobe changes. She feels well this AM, remains in sinus rhythm with stable vitals. Exam - Constitutional Vitals: Period Temp Pulse Resp BP Sys/Quintanilla Pulse Ox Last 24 Hr 97.2 F-98.2 F 65-83 12-20 87-169/52-92 94-100 General appearance: over weight - Respiratory Respiratory exam: Present: clear to auscultation bilaterally. Absent: rales, rhonchi, wheezes - Cardiovascular Cardiovascular exam: Present: regular rate and rhythm, systolic murmur (2/6 aortic sclerosis) - GI/Abdominal GI/Abdominal exam: Present: normal bowel sounds - Extremities Exam Extremities exam: Present: edema - Neurological Exam Neurological exam: Present: alert, oriented X3 - Psychiatric Psychiatric exam: Present: normal affect, normal mood Results - Labs CBC & BMP: 07/23/16 04:17 07/23/16 04:17
--- NOTE | 2016-07-24 10:51 | XRay Report ---
XR chest 2V Indication: Pulmonary embolus Comparison: Chest x-ray dated July 19, 2016 Technique: Frontal and lateral views of the chest Findings: Continued cardiomegaly status post sternotomy. Large hiatal hernia noted. Small bilateral pleural fluid demonstrated. Mild basilar atelectasis. Osseous and surrounding soft tissue structures appear grossly unchanged. IMPRESSION: As above. PROCEDURE INTERPRETED AT [facility] DEPARTMENT OF RADIOLOGY Final Report Signed by: Dr Rakesh Ann
--- NOTE | 2016-07-24 15:47 | Event Note ---
CXR does not show evidence of right upper lobe infiltrate/infarction, however has large hiatal hernia with moderate area of right lower lobe linear atelectasis. Initiate incentive spirometry and mobilization.
--- NOTE | 2016-07-24 21:08 | Cardiology Progress Note ---
Hussein Polk Rachel, RN, am scribing for, and in the presence of, Margoth Sepulveda MD 21:08. Assessment and Plan (1) Pulmonary emboli Status: Acute Assessment and plan: Patient is status post successful catheter directed thrombolysis of her bilateral pulmonary emboli. She is doing well today and without all complaints. Will continue current therapy. Ok for patient to transfer to floor from cardiology standpoint. Current Visit: Yes (2) H/O carotid endarterectomy Status: Chronic Current Visit: Yes (3) History of CVA (cerebrovascular accident) Status: Chronic Current Visit: Yes (4) S/P CABG x 2 Status: Chronic Current Visit: Yes Cardiology - PN: Subj Interval history: Patient is status post successful catheter directed thrombolysis of her bilateral pulmonary emboli. She is routinely followed by Dr. Valentine. Today she doing well and in no acute acute distress. She awaiting to be transferred to tele. She denies shortness of breath, chest pain, and palpitations. Bilateral groins are stable. Right groin has significant bruising. US was done 07/22/16, no focal pseudoaneurysm seen. Bilateral DP and PT pulses 2+ noted. She is being anticoagulated with Eliquis and tolerating well. She is sinus rhythm with heart rates in the 80's. She is without ectopy and arrhythmias. Vital signs are stable. Review of labs is unremarkable. Exam (Progress Note) - Constitutional Vitals: Period Temp Pulse Resp BP Sys/Quintanilla Pulse Ox Last 24 Hr 97.2 F-98.2 F 65-83 12-20 95-169/52-92 94-100 General appearance: normal weight, no acute distress, over weight - Head Head exam: Present: normal inspection, normocephalic, atraumatic - Eye Pupils: Present: AMRIT. Absent: dilated, fixed, irregular, unequal - Neck Neck exam: Present: normal inspection. Absent: lymphadenopathy, meningismus, tenderness - Respiratory Respiratory exam: Present: clear to auscultation bilaterally. Absent: accessory muscle use, rales, rhonchi, stridor, wheezes - Cardiovascular Cardiovascular exam: Present: regular rate and rhythm, systolic murmur. Absent : carotid bruit, gallop, irregular rhythm, JVD, rubs, tachycardia - GI/Abdominal GI/Abdominal exam: Present: normal bowel sounds, soft. Absent: ascites, distended, firm, mass, tenderness - Extremities Exam Extremities exam: Present: normal inspection, normal capillary refill, other (2 + DP and PT pulses palpated bilateraly. ). Absent: edema - Neurological Exam Neurological exam: Present: alert, oriented X3, normal gait - Psychiatric Psychiatric exam: Present: normal affect, normal mood. Absent: agitated, anxious - Skin Skin exam: Present: normal color, warm, dry Result/EKG - Labs CBC & BMP: 07/23/16 04:17 07/23/16 04:17 Lab Results: I have reviewed the past 24 hour labs Labs: Laboratory Results - last 24 hr 07/23/16 07/23/16 07/23/16 11:13 16:23 20:06 POC Glucose 148 H 134 H 150 H 07/24/16 07:05 POC Glucose 126 H - EKG EKG results: interpreted by me, sinus rhythm I, Margoth Sepulveda MD, personally performed the services described in this documentation, ascribed by Mary Ann Savage RN in my presence, and it is both accurate and complete 108 .
[2016-07-25] MEDS: ALBUTEROL/IPRATROPIUM 3 ML NEB RESP TX SCH ×4 (02:05→19:03)
[2016-07-25] MEDS: CEFEPIME 1,000 MG in SODIUM CHLORIDE 0.9% 100 ML IV SCH ×2 (06:41→18:34)
[2016-07-25 06:47] LABS: Basophils % 0.2 % (0.0-0.8); Eosinophils # 0.4 10*3/uL (0.0-0.87); Eosinophils % 4.7 % (0.00-10.9); Hematocrit 30.3 VOL% (35.7-47.0); Hemoglobin 9.5 GM/DL (12.0-16.0); Immature Granulocytes % 0.7 %; Immature Granulocytes Absolute 0.06 #; Lymphocytes # 1.1 10*3/uL (1.4-4.0); Lymphocytes % 13.9 % (21.3-54.2); Mean Corpuscular HGB Conc 31.4 GM/DL (32-36); Mean Corpuscular Hemoglobin 29 PG (27-34); Mean Corpuscular Volume 93.8 FL (87-102); Mean Platelet Volume 9.9 FL (9.6-12.0); Monocytes # 0.8 10*3/uL (0.11-0.8); Monocytes % 9.3 % (1.7-12.7); Neutrophils # 5.8 10*3/uL (1.4-7.4); Neutrophils % 71.2 % (38.7-73.9); Platelet Count 162 10*3/uL (130-400); Red Blood Count 3.23 10*6/uL (3.8-5.5); Red Cell Distribution Width 15.6 % (9.3-17.3); White Blood Count 8.1 10*3/uL (4.5-13.71)
[2016-07-25] MEDS: LEVOTHYROXINE 200 MCG TABLET PO SCH (06:59)
--- NOTE | 2016-07-25 08:03 | Hospitalist Progress Note ---
Assessment and Plan (1) Type 2 diabetes mellitus Status: Chronic Current Visit: Yes (2) Pulmonary emboli Status: Acute Assessment and plan: July 21 catheter directed thrombolysis, preserved RV systolic performance by echocardiogram. Current Visit: Yes (3) Atherosclerotic cardiovascular disease Status: Chronic Assessment and plan: History of ACBG, carotid endarterectomy Current Visit: Yes Hospitalist: Subjective Interval history: 71 yo female found to have bilateral pulmonary embolae receiving catheter directed thrombolysis 07/21. Post procedure groin bleeding with transfusion. Her CXR shows large hiatal hernia with linear atelectasis in the right lower lobe. She feels well vitals stable and afebrile. Exam - Constitutional Vitals: Period Temp Pulse Resp BP Sys/Quintanilla Pulse Ox Last 24 Hr 97.2 F-99.7 F 74-88 10-20 112-165/69-79 88-98 General appearance: over weight - Respiratory Respiratory exam: Present: clear to auscultation bilaterally. Absent: rales, rhonchi, wheezes - Cardiovascular Cardiovascular exam: Present: regular rate and rhythm, systolic murmur (2/6 aortic stenotic) - GI/Abdominal GI/Abdominal exam: Present: normal bowel sounds. Absent: tenderness - Extremities Exam Extremities exam: Present: other (ecchymosis stable). Absent: edema - Neurological Exam Neurological exam: Present: alert, oriented X3 - Psychiatric Psychiatric exam: Present: normal affect, normal mood Results - Labs CBC & BMP: 07/25/16 06:29 07/23/16 04:17
[2016-07-25] MEDS: INSULIN REGULAR 100 UNIT/ML SUBCUT SCH ×4 (09:00→21:13)
[2016-07-25] MEDS: GLIMEPIRIDE 2 MG TABLET PO SCH (09:01)
[2016-07-25] MEDS: DULoxetine 30 MG CAPSULE PO SCH (09:01)
[2016-07-25] MEDS: AMITRIPTYLINE 25 MG TABLET PO SCH (09:02)
[2016-07-25] MEDS: APIXABAN 5 MG TABLET PO SCH ×2 (09:03→21:14)
[2016-07-25] MEDS: FERROUS SULFATE 325 MG TABLET PO SCH ×3 (09:03→21:14)
[2016-07-25] MEDS: PANTOPRAZOLE 40 MG TABLET PO SCH (09:03)
[2016-07-25] MEDS: ATORVASTATIN 40 MG TABLET PO SCH (09:04)
--- NOTE | 2016-07-25 18:05 | Cardiology Progress Note ---
Hussein Polk Rachel, RN, am scribing for, and in the presence of, Margoth Sepulveda MD 18:04. Assessment and Plan (1) Pulmonary emboli Status: Acute Assessment and plan: Patient is status post successful catheter directed thrombolysis of her bilateral pulmonary emboli. She is doing well today and without all complaints. Will continue current therapy. Ok for patient to discharge from cardiology standpoint. We'll sign off. She can follow-up with Dr. Duggan 2 weeks post discharge. Current Visit: Yes (2) H/O carotid endarterectomy Status: Chronic Current Visit: Yes (3) History of CVA (cerebrovascular accident) Status: Chronic Current Visit: Yes (4) S/P CABG x 2 Status: Chronic Current Visit: Yes Cardiology - PN: Subj Interval history: Mrs. Orourke is a 71 year old female patient who is routinely followed by Dr. Valentine. She is status post successful catheter directed thrombolysis of her bilateral pulmonary emboli. She is without complaints today and in no acute distress. She reports that she has been ambulating around the room without difficulty. She denies shortness of breath, chest pain, and palpitations. Bilateral groins are stable. Significant bruising noted to right groin, US was completed and confirmed no pseudoaneurysm. Bilateral DP and PT pulses are 2+. Vital signs stable. Sinus rhythm per tele monitor with heart rates in the 80's. She is anticoagulated with Eliquis, tolerating well. Review of labs reveal a stable H&H. Exam (Progress Note) - Constitutional Vitals: Period Temp Pulse Resp BP Sys/Quintanilla Pulse Ox Last 24 Hr 97.2 F-99.7 F 70-88 18-18 127-165/63-79 88-99 General appearance: normal weight, no acute distress - Head Head exam: Present: normal inspection, normocephalic, atraumatic - Eye Pupils: Present: AMRIT. Absent: constricted, dilated, fixed, irregular, unequal - Neck Neck exam: Present: normal inspection. Absent: lymphadenopathy, meningismus, tenderness, thyromegaly - Respiratory Respiratory exam: Present: clear to auscultation bilaterally. Absent: accessory muscle use, rales, rhonchi, stridor, wheezes - Cardiovascular Cardiovascular exam: Present: regular rate and rhythm, systolic murmur. Absent : carotid bruit, diastolic murmur, gallop, irregular rhythm, JVD, rubs - GI/Abdominal GI/Abdominal exam: Present: normal bowel sounds, soft. Absent: ascites, distended, firm, mass, tenderness - Extremities Exam Extremities exam: Present: normal inspection, normal capillary refill, edema ( trace edema to BLE). Absent: calf tenderness - Neurological Exam Neurological exam: Present: alert, oriented X3, abnormal gait - Psychiatric Psychiatric exam: Present: normal affect, normal mood. Absent: agitated, anxious, depressed - Skin Skin exam: Present: normal color, warm, dry Result/EKG - Labs CBC & BMP: 07/25/16 06:29 07/23/16 04:17 Lab Results: I have reviewed the past 24 hour labs Labs: Laboratory Results - last 24 hr 07/24/16 07/24/16 07/25/16 16:34 19:53 06:29 WBC 8.1 RBC 3.23 L Hgb 9.5 L Hct 30.3 L MCV 93.8 MCH 29 MCHC 31.4 L RDW 15.6 Plt Count 162 D MPV 9.9 Neut % (Auto) 71.2 Lymph % (Auto) 13.9 L [place] % (Auto) 9.3 Eos % (Auto) 4.7 Baso % (Auto) 0.2 Neut # (Auto) 5.8 Lymph # (Auto) 1.1 L [place] # (Auto) 0.8 Eos # (Auto) 0.4 Baso # (Auto) 0.0 Immature Gran % 0.7 Nucleated RBC % 0.0 Immature Gran # 0.06 Nucleated RBCs # 0.00 POC Glucose 138 H 108 H 07/25/16 07/25/16 07:18 11:23 WBC RBC Hgb Hct MCV MCH MCHC RDW Plt Count MPV Neut % (Auto) Lymph % (Auto) [place] % (Auto) Eos % (Auto) Baso % (Auto) Neut # (Auto) Lymph # (Auto) [place] # (Auto) Eos # (Auto) Baso # (Auto) Immature Gran % Nucleated RBC % Immature Gran # Nucleated RBCs # POC Glucose 121 H 146 H - EKG EKG results: interpreted by me, sinus rhythm Specialty Discharge - Follow Up or Referrals Follow up with: Juan Francisco Duggan MD [Physician] - 2 Weeks IDerick Jennifer, MD, personally performed the services described in this documentation, ascribed by Mary Ann Savage RN in my presence, and it is both accurate and complete 804 .
[2016-07-26] MEDS: ALBUTEROL/IPRATROPIUM 3 ML NEB RESP TX SCH ×3 (00:59→13:56)
[2016-07-26] MEDS: CEFEPIME 1,000 MG in SODIUM CHLORIDE 0.9% 100 ML IV SCH ×2 (06:16→18:04)
[2016-07-26] MEDS: LEVOTHYROXINE 200 MCG TABLET PO SCH (06:17)
[2016-07-26] MEDS: APIXABAN 5 MG TABLET PO SCH (09:28)
[2016-07-26] MEDS: DULoxetine 30 MG CAPSULE PO SCH (09:29)
[2016-07-26] MEDS: ATORVASTATIN 40 MG TABLET PO SCH (09:29)
[2016-07-26] MEDS: FERROUS SULFATE 325 MG TABLET PO SCH ×2 (09:29→15:59)
[2016-07-26] MEDS: GLIMEPIRIDE 2 MG TABLET PO SCH (09:29)
[2016-07-26] MEDS: PANTOPRAZOLE 40 MG TABLET PO SCH (09:29)
[2016-07-26] MEDS: AMITRIPTYLINE 25 MG TABLET PO SCH (09:30)
--- NOTE | 2016-07-26 12:15 | Hospitalist Progress Note ---
Assessment and Plan - Time spent with patient Time spent with patient: Less than 30 minutes (due to assessment, plan and documentation) (1) Acute cystitis Status: Acute Current Visit: Yes (2) Dizziness Status: Acute Current Visit: Yes (3) Pulmonary emboli Status: Acute Current Visit: Yes (4) H/O carotid endarterectomy Status: Chronic Current Visit: Yes (5) History of CVA (cerebrovascular accident) Status: Chronic Current Visit: Yes (6) S/P CABG x 2 Status: Chronic Current Visit: Yes (7) Type 2 diabetes mellitus Status: Chronic Current Visit: Yes Hospitalist: Subjective Interval history: Ms. Orourke was seen today on rounds lying in bed. She states that she is feeling much better, especially after EKOS. Her left arm is swollen and tender per her report. She does have noticeable edema and warmth to her left arm. I will obtain a u/s of her LUE. Her lungs are clear, and good bowel sounds. She does complain of some constipation. She has Dulcolax ordered for that. Her daughter is at bedside and has multiple questions. I have answered them for her. However, she does have some questions for Cardiology and would like to speak with them. I have spoken with Cardiology [employer] and asked that she or the MD speak with the daughter regarding questions. She is having some post nasal drainage with a harsh cough this AM. I have started on Mucinex for this. She has massive bruising to the left side, but no hematoma noted. Labs in AM. Exam - Constitutional Vitals: Period Temp Pulse Resp BP Sys/Quintanilla Pulse Ox Last 24 Hr 97.2 F-98.9 F 73-91 16-25 118-188/60-82 92-100 General appearance: normal weight, no acute distress - Head Head exam: Present: normal inspection, normocephalic - Eye Eye exam: Present: EOMI. Absent: scleral icterus Pupils: Present: AMRIT, normal accommodation - ENT ENT exam: Present: normal exam, normal oropharynx - Neck Neck exam: Present: normal inspection. Absent: lymphadenopathy - Respiratory Respiratory exam: Present: clear to auscultation bilaterally. Absent: accessory muscle use - Cardiovascular Cardiovascular exam: Present: regular rate and rhythm - GI/Abdominal GI/Abdominal exam: Present: normal bowel sounds, soft. Absent: tenderness - Extremities Exam Extremities exam: Present: edema (LUE- obtain u/s), other (extensive bruising noted. ) - Back Exam Back exam: Present: normal inspection. Absent: muscle spasm - Neurological Exam Neurological exam: Present: alert, oriented X3 - Psychiatric Psychiatric exam: Present: normal affect, normal mood - Skin Skin exam: Present: warm, dry, intact Results - Labs CBC & BMP: 07/25/16 06:29 07/23/16 04:17 Lab Results: I have reviewed the past 24 hour labs Specialty Discharge - Follow Up or Referrals Follow up with: Juan Francisco Duggan MD [Physician] - 2 Weeks
[2016-07-26] MEDS: INSULIN REGULAR 100 UNIT/ML SUBCUT SCH ×3 (12:43→18:02)
--- NOTE | 2016-07-26 13:36 | Ultrasound Report ---
History is left arm swelling and pain Left upper extremity venous Doppler performed with grayscale, spectral Doppler, and color flow analysis performed and interpreted. No evidence of echogenic, noncompressible thrombus seen in the left internal jugular, axillary, cephalic, basilic, or brachial veins No secondary signs of venous thrombus seen in the left subclavian vein Impression: No evidence of left upper extremity venous thrombosis identified. PROCEDURE INTERPRETED AT [facility] DEPARTMENT OF RADIOLOGY Final Report Signed by: Dr. Kasey Boykin
[2016-07-26 15:34] VITALS: BP 116/65
--- NOTE | 2016-07-26 18:20 | Discharge Summary ---
Hospital Course - Hospital Course Hospital Course: This hospitalization included patient admitted for dysuria and urinary tract infection symptoms as well as dizziness. However patient had nonspecific abdominal discomfort and underwent CT PE protocol that showed bilateral pulmonary embolus. She subsequently had directed TPA therapy on the . She was transitioned to eliquis. She has been on dialysis for the past 4 days and will need to continue L) mother 3 days 10 mg twice daily and then subsequently 5 mg twice daily Moreover, she has currently been treated for urinary tract infection. She has had urine cultures done which have been negative at discharge. She has had no fevers or chills. No shortness of breath or chest pain. Continue to be followed by cardiology and at this time has reached maximal hospitalization. Family members had question as relates to duration of treatment for pulmonary embolus which was described to them for approximately 6 months. She was also given further education as it relates to fall precautions. She has had no other changes at this time and has reached maximal hospitalization is prepared for discharge. Diagnosis - Discharge Diagnosis (1) Cystitis Status: Resolved (2) Type 2 diabetes mellitus Status: Chronic (3) UTI (urinary tract infection) Status: Acute (4) Pulmonary emboli Status: Acute (5) Atherosclerotic cardiovascular disease Status: Chronic Specialty Discharge - Follow Up or Referrals Follow up with: Juan Francisco Duggan MD [Physician] - 2 Weeks Discharge Plan - Discharge Data Disposition: Disch To Home/Self Care Condition at Discharge: Stable Discharge Diet: advance to your usual diet Activity: other (fall precautions continue with walker.) Hygiene: no restrictions Contact your physician if you experience:: fever over 101 - Discharge Medications New Apixaban [Eliquis] 5 mg PO BID #60 tablet HYDROcodone/ACETAMIN 5-325 [Tionesta 5-325] 1 tablet PO Q4H PRN #20 tablet PRN Reason: Pain Mild (1-3) Pantoprazole Tab [Protonix Tab] 40 mg PO DAILY #30 tablet Continue Aspirin/Calcium Carbonate/Mag [Aspirin Buffered 325 mg Tab] 325 mg PO DAILY Furosemide 40 mg PO BID Ferrous Sulfate 325 mg PO TID Atenolol 100 mg PO BID Amitriptyline [Elavil] 50 mg PO DAILY Levothyroxine Sodium 200 mcg PO DAILY Atorvastatin [Lipitor] 60 mg PO DAILY DULoxetine [Cymbalta] 30 mg PO DAILY Amlodipine Besylate 10 mg PO DAILY Glimepiride 2 mg PO DAILY - Follow Up or Referral Follow Up: Juan Francisco Duggan MD [Physician] - 2 Weeks - Forms/Instructions Additional Discharge Instructions: Follow with Dr. Camarillo in one week Exam - Constitutional Vitals: Period Temp Pulse Resp BP Sys/Quintanilla Pulse Ox Last 24 Hr 97.2 F-98.9 F 71-90 16-25 116-188/60-82 90-100 General appearance: over weight - Head Head exam: Present: normal inspection - Eye Eye exam: Present: EOMI Pupils: Present: AMRIT - Neck Neck exam: Present: normal inspection - Respiratory Respiratory exam: Present: clear to auscultation bilaterally - Cardiovascular Cardiovascular exam: Present: regular rate and rhythm - GI/Abdominal GI/Abdominal exam: Present: normal bowel sounds - Extremities Exam Extremities exam: Present: normal inspection, full ROM - Neurological Exam Neurological exam: Present: alert, oriented X3, CN II-XII intact - Skin Skin exam: Present: other (ecchymotic areas are noted on bilateral arms as patient is on a blood thinner) Discharge Results Procedures and tests throughout hospitalization: Pending Orders 07/27/16 04:00 CMP [Comprehensive Metabolic Panel] IN AM Comp Blood Count Auto Diff IN AM Labs on day of discharge: Labs from last 24 hours 07/26/16 07/26/16 07/26/16 16:29 12:10 07:14 POC Glucose 172 H 87 96 07/25/16 20:06 POC Glucose 133 H DS: Provider Date of admission: 07/20/16 03:45 Primary care physician: Carmela Camarillo M.D. Attending physician on admission: Andrew Ontiveros M.D. Consults: 07/20/16 04:56 Consult to Pharmacy [CONS] Routine Reason for Pharmacy Consult: Adjust Meds Renal Funct 07/21/16 12:47 Consult to Physician [CONS] Routine Comment: pt with bilatreal PE evaluate for pulmonary cath Consulting Provider: Juan Francisco Duggan Consult to Specialist Group: Cardiology When should Consulting Provider be notified: Now Person Notified: naida Date Notified: 07/21/16 Time Notified: 13:50 Discharging clinician: Parag Ferrer Jr., MD
== END 2016-07-26 19:22 | disposition home or self-care (01) | DRG 175 ==
LOC: N.ED 21:41 → N.EDINP 07-20 03:44 → SUATTDRO 07-20 03:45 → N.2E 07-20 04:25 → N.CC 07-21 18:20 → N.TELEN 07-24 10:37
PROVIDERS: ADMIT Internal Medicine; ATTEND Internal Medicine Cardiovascular Disease

== ENCOUNTER 2017-04-09 14:15 | Inpatient (IN) ==
--- NOTE | 2017-04-09 19:02 | Pulmonology History & Physical ---
History of Present Illness Chief complaint: Acute cellulitis and lymphangitis of the bilateral lower extremities History of present illness: Saji Carrero, [facility], acting as scribe for Dr. Jose Burnett Ms. Orourke is a 71 year old female who was [facility] for Alexandrea Adams NP, with complaints of bilateral lower extremity edema , erythema, and pain. Upon evaluation, the patient was noted to have +4/4 bilateral lower extremity edema that extended up to the knee with erythema that was mainly anterior all consistent with cellulitis and lymphangitis. Her gait has been unstable secondary to this and she has had multiple recent falls. Given her acute illness, advanced age, multiple comorbidities, it was felt in her best interest to hospitalize for further evaluation and care. Her primary care physician is Dr. Carmela Camarillo. She is followed from a GI standpoint by Dr. Jasbir Chu. She is followed from a cardiology standpoint by Dr. Valentine. Recently she has been seen by [facility] which I believe is in [place], [place]. The patient denies any increased shortness of breath or dyspnea on exertion. There is been no cardiac angina or palpitations. No dysphasia or reflux. No bleeding from any site. No change in bowel or bladder habits. No TIA symptoms or syncope. Of note, the patient has had multiple recent falls as stated above and now complains of right shoulder pain. All other systems are reviewed and were negative. Allergies: None are listed, however, on review of previous records she listed an allergy to Apresoline Home medications: Per records at [facility], amitriptyline 50 mg at bedtime, amlodipine 2.5 mg daily, aspirin 325 mg daily, Cymbalta 30 mg daily , Eliquis 5 mg twice daily, ferrous sulfate 325 mg 3 times daily, Lasix 40 mg twice daily, levothyroxine 88 mcg 2 tablets daily, Lipitor 40 mg 1-1/2 tablets daily, lisinopril 10 mg daily, Lopressor 50 mg one half tablet twice daily, metformin 500 mg twice daily, Protonix 40 mg daily, and vitamin B12 injections monthly Past medical history: April 2012 hospitalization under the care of Dr. Burnett for acute on chronic edema of the left lower extremity following venous harvesting in September 1999 for an acute cellulitis and lymphangitis of left lower extremity which had been refractory to outpatient treatment. 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 Ruano at [facility], hyperlipidemia, exogenous obesity, hypothyroidism, obstructive sleep apnea, diverticulosis, and history of hospitalization for bilateral PE which was treated with TPA therapy and was complicated with huge ecchymosis involving the groin area and bilateral lower limbs and a drop in her blood pressure requiring blood transfusion. Surgical history: Positive for coronary artery bypass 10/20/2003, Family history: Breast cancer, diabetes, and heart attack in her mother. Diabetes and sudden in her father. Heart attack, kidney stones, and sudden in her brother. She lost a 31-year-old son to colon cancer. Social history: The patient does not use alcohol or tobacco. She completed some college. She is retired. Laboratory: Pending Chest x-ray: Pending EKG: Pending Home Medications Medication Instructions Recorded Confirmed Type Amitriptyline [Elavil] 50 mg PO DAILY 07/19/16 12/25/16 History Amlodipine Besylate 2.5 mg PO DAILY 07/19/16 12/25/16 History Aspirin/Calcium Carbonate/Mag 325 mg PO DAILY 07/19/16 12/25/16 History [Aspirin Buffered 325 mg Tab] Atenolol 25 mg PO BID 07/19/16 12/25/16 History Atorvastatin [Lipitor] 60 mg PO DAILY 07/19/16 12/25/16 History DULoxetine [Cymbalta] 30 mg PO DAILY 07/19/16 12/25/16 History Ferrous Sulfate 325 mg PO TID 07/19/16 12/25/16 History Furosemide 40 mg PO BID 07/19/16 12/25/16 History Levothyroxine Sodium 200 mcg PO DAILY 07/19/16 12/25/16 History Apixaban [Eliquis] 5 mg PO BID #60 tablet 07/26/16 12/25/16 Rx Pantoprazole Tab [Protonix Tab] 40 mg PO DAILY #30 tablet 07/26/16 12/25/16 Rx Sulfameth/Trimeth 800-160 Tab 1 tablet PO BID #14 tablet 12/26/16 Rx [Bactrim DS Tab] Allergies Allergy/AdvReac Type Severity Reaction Status Date / Time No Known Allergies Allergy Verified 12/25/16 20:21 Medical,Surgical,& Family Hx - Medical History Cardio: History of: CAD, Hypertension Psychological: History of: Anxiety Disorders, Depression Neurology: History of: Cerebrovascular Accident (brain stem stroke 1996) HEENT: History of: Ear Problem (stopped up ears, no follow up), Eye Problem ( right eye cornia causing blindness) Endocrine: History of: Diabetes Mellitus (NIDDM), Dyslipidemia, Thyroid Disorder Respiratory: History of: Asthma, Bronchitis, Obstructive Sleep Apnea, Pulmonary Embolism Genitourinary: History of: Kidney Stones, Recurring Urinary Tract Infections Musculoskeletal: No history of: Amputation Hematology: History of: Anemia Other: History of: Anesthesia Reactions (unable to breath after surgery before) , Skin Problems (forehead dry area) - Surgical History Cardiac Surgeries: Sugical HX of: Cardiac Surgery, Carotid Endarterectomy Thoracic Surgeries: Surgical HX of;: Kidney (Renal Surgery) Patient denies;: Organ Transplant, Lobectomy HEENT Surgeries: Surgical HX of: Carotid Endarterectomy Abdominal Surgeries: Patient denies: Abdominal Surgery Reproductive Surgeries: Patient denies;: Hysterectomy Orthopedic Surgeries: Patient denies;: Implanted Devices, Orthopedic Surgery, Spinal Surgery, Total Hip Replacement, Total Knee Replacement - Social History Smoking Status: Never smoker Quality Measures - VTE Contraindication to Pharmacological VTE Prophylaxis: Already on Theraputic Agent , No Prophylaxis Needed Contraindication to Mechanical VTE Prophylaxis: Local Inflammation Exam (Pulmonay) H&P - Constitutional Vitals: Period Temp Pulse Resp BP Sys/Quintanilla Pulse Ox Last 24 Hr 98.6 F 92 18 148/90 90 Exam: Psych: Oriented x 3; a pleasant and cooperative patient HEENT: Pupils, irises, sclera, conjunctiva, and eyelids are normal. The face is symmetrical without rash or masses. Lips, tongue, buccal mucosa, soft and hard palates, and pharynx are WNL with the exception of dry mucous membranes. Neck: Symmetrical. Thyroid was not palpated. Lymphatics: No submandibular, cervical, or supraclavicular adenopathy Chest: Symmetrical without wheeze, rhonchi or rales Breasts: Deferred CV: Regular without murmur, rub, or gallop Arterial: Carotids with a fair upstroke. There is no bruit. Upper extremity pulses are palpable. Lower extremity pulses are non-palpable, but I see no evidence of ischemia. Venous: Exam of the neck, upper, and lower extremities is normal Abd: No appreciable organomegaly, masses, tenderness, or bruit; Bowel sounds are positive 4; The aorta was not palpated /Rectal: Deferred Extremities: No clubbing, cyanosis,or obvious DVT; there is bilateral lower extremity edema left greater than right with the left been +4/4 up to the knee with associated erythema that is mainly anterior Skin: No cancerous or infectious lesions of the remaining exposed, examined skin ; the perineal area was not examined M/S: Age appropriate loss of the normal curvature of the cervical, thoracic, and lumbar spine Neurological: Cranial nerves are intact, Long tract motor function is intact; Sensory exam was not done; gait was not tested. The remainder of the exam was noncontributory. 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 Previous endarterectomy 06/18/2001. #7: Stent left internal carotid artery placed 06/18/[address] Ruano at [facility] #8: Hyperlipidemia #9: Exogenous obesity #10: Hypothyroidism #11: Chronic anticoagulation with Eliquis #12: See past history Plan: #1: Admit to inpatient #2: IV antibiotics with Cleocin and Levaquin #3: IV Solu-Medrol 20 mg every 8 hours #4: Routine labs and x-ray #5: X-ray of the right shoulder #6: See orders
[2017-04-09] MEDS ORDERED: DEXTROSE 50% 25 GM/50 ML VIAL IV PRN (19:10)
[2017-04-09] MEDS ORDERED: GLUCAGON 1 MG VIAL IM PRN (19:10)
[2017-04-09 19:14] LABS: Basophils % 0.2 % (0.0-0.8); Hemoglobin 14.2 GM/DL (12.0-16.0); Immature Granulocytes % 0.6 %; Immature Granulocytes Absolute 0.09 #; Lymphocytes # 1.1 10*3/uL (1.4-4.0); Lymphocytes % 6.7 % (21.3-54.2); Mean Corpuscular HGB Conc 34.6 GM/DL (32-36); Mean Corpuscular Hemoglobin 33 PG (27-34); Mean Corpuscular Volume 93.8 FL (87-102); Mean Platelet Volume 10.1 FL (9.6-12.0); Monocytes # 1.4 10*3/uL (0.11-0.8); Monocytes % 8.7 % (1.7-12.7); Neutrophils # 13.1 10*3/uL (1.4-7.4); Neutrophils % 83.8 % (38.7-73.9); Platelet Count 214 T/CUMM (130-400); Red Blood Count 4.37 MC/CUMM (3.8-5.5); Red Cell Distribution Width 12.5 % (9.3-17.3); White Blood Count 15.7 T/CUMM (4-12)
[2017-04-09 19:41] LABS: Albumin 3.3 G/DL (3.4-5.0); Calcium 9.3 MG/DL (8.5-10.1); Magnesium 1.7 MG/DL (1.8-2.4); Osmolality,Calculated 281.1 MOS/KG (273-304); Potassium 3.7 MMOL/L (3.5-5.1); Thyroid Stimulating Hormone 0.826 uIU/ml (0.358-3.74); Total Protein 7.3 G/DL (6.4-8.3)
--- NOTE | 2017-04-09 19:55 | XRay Report ---
Right shoulder, 2 views History is fall with right shoulder injury and pain There is hypertrophy with slight widening of the AC joint. Mild degenerative changes in the glenohumeral joint No acute fracture is seen Impression: Findings raising question of mild right AC joint injury superimposed on mild degenerative changes PROCEDURE INTERPRETED AT [facility] DEPARTMENT OF RADIOLOGY Final Report Signed by: Dr. Kasey Boykin
--- NOTE | 2017-04-09 19:56 | XRay Report ---
History short of breath Chest, 2 views Comparison 07/24/2016 Mediastinal contour is unchanged with very large lateral hernia again seen The calcified left basal granuloma present. No congestive failure or confluent infiltrate seen. Impression: Large hiatal hernia again seen PROCEDURE INTERPRETED AT [facility] DEPARTMENT OF RADIOLOGY Final Report Signed by: Dr. Kasey Boykin
[2017-04-09] MEDS ORDERED: FUROSEMIDE 40 MG TABLET PO SCH (21:00)
[2017-04-09] MEDS: APIXABAN 5 MG TABLET PO SCH (21:19)
[2017-04-09] MEDS: AMITRIPTYLINE 50 MG TABLET PO SCH (21:19)
[2017-04-09] MEDS: DEXTROSE 5% NACL 0.45% 1,000 ML IV SCH (21:19)
[2017-04-09] MEDS: methylPREDNISolone SOD SUC 40 MG/1 ML VIAL IV SCH (21:20)
[2017-04-09] MEDS: FERROUS SULFATE 325 MG TABLET PO SCH (21:20)
[2017-04-09] MEDS: ATENOLOL 25 MG TABLET PO SCH (21:20)
[2017-04-09] MEDS: CLINDAMYCIN INJ 300 MG in PREMIX 1 EACH IV SCH (21:20)
[2017-04-09] MEDS: LEVOFLOXACIN INJ 500 MG in PREMIX 1 EACH IV SCH (22:21)
[2017-04-10] MEDS: methylPREDNISolone SOD SUC 40 MG/1 ML VIAL IV SCH ×3 (04:28→18:05)
[2017-04-10] MEDS: CLINDAMYCIN INJ 300 MG in PREMIX 1 EACH IV SCH ×4 (04:28→21:12)
[2017-04-10 05:37] LABS: Apearance,Urine CLEAR (Clear); Bilirubin,Urine Negative (Negative); Blood, Urine Negative (Negative); Glucose,Urine (UA) >=500 mg/dL (Negative); Hyaline Casts,Urine 5 /LPF (0-3); Ketones,Urine 5 mg/dL (Negative); Mucus,Urine Occasional /LPF (Occasional); Nitrite,Urine Negative (Negative); Protein,Urine Negative; Squamous Epithelial Cell,Urine Occasional /HPF (0-10); Urine Color Yellow (Yellow); Urine Specific Gravity 1.014 (1.001-1.035); Urine Urobilinogen < 2.0 EU/DL (0.2-1.0); WBC,Urine <1 /HPF (0-6)
[2017-04-10 06:00] LABS: Basophils % 0.1 % (0.0-0.8); Hematocrit 38.3 VOL% (35.7-47.0); Hemoglobin 13.2 GM/DL (12.0-16.0); Immature Granulocytes % 0.6 %; Immature Granulocytes Absolute 0.08 #; Lymphocytes # 0.8 10*3/uL (1.4-4.0); Mean Corpuscular HGB Conc 34.5 GM/DL (32-36); Mean Corpuscular Hemoglobin 32 PG (27-34); Mean Corpuscular Volume 93.6 FL (87-102); Mean Platelet Volume 10.3 FL (9.6-12.0); Monocytes % 7.1 % (1.7-12.7); Neutrophils # 12.1 10*3/uL (1.4-7.4); Neutrophils % 86.2 % (38.7-73.9); Platelet Count 192 T/CUMM (130-400); Red Blood Count 4.09 MC/CUMM (3.8-5.5); Red Cell Distribution Width 12.4 % (9.3-17.3)
[2017-04-10 06:21] LABS: Calcium 9.2 MG/DL (8.5-10.1); Magnesium 1.9 MG/DL (1.8-2.4); Potassium 3.5 MMOL/L (3.5-5.1)
[2017-04-10] MEDS: FUROSEMIDE 40 MG TABLET PO SCH ×2 (09:04→15:15)
[2017-04-10] MEDS: FERROUS SULFATE 325 MG TABLET PO SCH ×3 (09:04→21:12)
[2017-04-10] MEDS: INSULIN LISPRO 100 UNIT/ML SUBCUT SCH ×4 (09:04→21:12)
[2017-04-10] MEDS: metFORMIN 500 MG TABLET PO SCH ×2 (09:04→16:38)
[2017-04-10] MEDS: LISINOPRIL 10 MG TABLET PO SCH (09:05)
[2017-04-10] MEDS: amLODIPine 2.5 MG TABLET PO SCH (09:05)
[2017-04-10] MEDS: ATENOLOL 25 MG TABLET PO SCH ×2 (09:05→21:12)
[2017-04-10] MEDS: APIXABAN 5 MG TABLET PO SCH ×2 (09:05→21:12)
[2017-04-10] MEDS: ASPIRIN 325 MG TABLET PO SCH (09:05)
[2017-04-10] MEDS: CALCIUM (CARBONATE) 500 MG TABLET PO SCH (09:05)
[2017-04-10] MEDS: MAGNESIUM CHLORIDE 64 MG TABLET PO SCH (09:05)
[2017-04-10] MEDS: ATORVASTATIN 40 MG TABLET PO SCH (09:05)
[2017-04-10] MEDS: DULoxetine 30 MG CAPSULE PO SCH (09:05)
[2017-04-10] MEDS: PANTOPRAZOLE 40 MG TABLET PO SCH (09:05)
--- NOTE | 2017-04-10 10:15 | Pulmonology Progress Note ---
Pulmonary - PN: Subj Interval history: [facility]aji Carrero, [facility] acting as scribe for Dr. Jose Burnett Ms. Orourke was admitted [facility]/09/2017 from [facility]. 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 Previous endarterectomy 06/18/2001. #7: Stent left internal carotid artery placed 06/18/[address] Ruano at [facility] #8: Hyperlipidemia #9: Exogenous obesity #10: Hypothyroidism #11: Chronic anticoagulation with Eliquis #12: See past history 04/10/2017. Patient was seen today along with Flower Ortega RN. The patient cellulitis and lymphangitis is already beginning to improve with IV antibiotics and IV Solu-Medrol. She has known diabetes mellitus and of course her glucoses are being aggravated by the necessary steroids. However, as evidenced by hemoglobin A1c of 8.6%, her glucoses have been under less than optimal control for quite some time. She is on her home dose of metformin 500 mg twice daily. We have started glyburide 5 mg twice daily. We will consult the diabetic education nurses as well as dietitian to speak with her regarding her diabetes mellitus. She is on sliding scale insulin as well. Admission the patient complained of right shoulder pain secondary to multiple recent falls. Shoulder x-ray showed findings showing questionable mild right AC joint injury superimposed on mild degenerative changes. She continues to complain of significant right shoulder pain, so we have consulted orthopedics and Occupational Therapy for evaluation and treatment. Medications have been reviewed. Glyburide added today. She is on her routine home medications. Labs been reviewed. White count at admission was 15,700 and is now fallen to 14 ,000 with 86.2% segs; H&H 13.2/38.3; platelet count 192,000; creatinine 0.70, BUN 19, electrolytes are normal; hemoglobin A1c 8.6%; liver function tests within normal limits; calcium 9.2; TSH was normal at 0.826, but free T4 was elevated at 1.53; urinalysis showed no evidence of infection Exam (Progress Note) - Constitutional Vitals: Period Temp Pulse Resp BP Sys/Quintanilla Pulse Ox Last 24 Hr 96.3 F-98.6 F 71-92 18-20 115-148/62-90 90-92 Exam: Chest is wheeze free Heart no gallop Abdomen is nontender and nondistended; bowel sounds are positive 4 Extremities with less edema and less erythema than at admission; nothing to suggest acute deep venous thrombophlebitis Psychiatric oriented 3 Neurologic long-term motor function is intact Plan: Start glyburide 5 mg p.o. twice daily. Consult dietitian and diabetic education nurses. Consult orthopedics regarding right shoulder pain. Consult Occupational Therapy. Repeat free T4 in the morning. Continue other present treatment. See orders. Results - Labs CBC & BMP: 04/10/17 05:31 04/10/17 05:31
[2017-04-10] MEDS: DEXTROSE 5% NACL 0.45% 1,000 ML IV SCH (12:23)
[2017-04-10] MEDS: BACITRACIN OINT 0.9 GM PACK TOP SCH (15:58)
[2017-04-10] MEDS: glyBURIDE 5 MG TABLET PO SCH (16:38)
--- NOTE | 2017-04-10 17:38 | Orthopedic Consult Note ---
History of Present Illness Chief complaint: Right shoulder pain History of present illness: Ms. Orourke is a 71 year old female who is had a week long history of right shoulder pain. It bothers with abduction and overhead lifting. The patient has had several falls over the last week, but she states that she tends to fall to the left and is not aware of a specific injury to the right shoulder. She has had problems with her left shoulder in the past and it is responded to therapy and exercise. She is complaining of superior lateral shoulder pain. She has been using a walker to ambulate. Home Medications Medication Instructions Recorded Confirmed Type Amitriptyline [Elavil] 50 mg PO DAILY 07/19/16 04/09/17 History Amlodipine Besylate 2.5 mg PO DAILY 07/19/16 04/09/17 History Aspirin/Calcium Carbonate/Mag 325 mg PO DAILY 07/19/16 04/09/17 History [Aspirin Buffered 325 mg Tab] Atenolol 25 mg PO BID 07/19/16 04/09/17 History Atorvastatin [Lipitor] 60 mg PO DAILY 07/19/16 04/09/17 History DULoxetine [Cymbalta] 30 mg PO DAILY 07/19/16 04/09/17 History Ferrous Sulfate 325 mg PO TID 07/19/16 04/09/17 History Furosemide 40 mg PO BID 07/19/16 04/09/17 History Levothyroxine Sodium 176 mcg PO DAILY 07/19/16 04/09/17 History Apixaban [Eliquis] 5 mg PO BID #60 tablet 07/26/16 04/09/17 Rx Pantoprazole Tab [Protonix Tab] 40 mg PO DAILY #30 tablet 07/26/16 04/09/17 Rx Metoprolol Tartrate 25 mg PO DAILY 04/09/17 04/09/17 History metFORMIN [Glucophage] 500 mg PO DAILY 04/09/17 04/09/17 History Allergies Allergy/AdvReac Type Severity Reaction Status Date / Time No Known Allergies Allergy Verified 12/25/16 20:21 12 point system: reviewed and no additional remarkable complaints except as stated Medical,Surgical,& Family Hx - Medical History Cardio: History of: CAD, Hypertension Psychological: History of: Anxiety Disorders, Depression Neurology: History of: Cerebrovascular Accident (brain stem stroke 1996) HEENT: History of: Ear Problem (stopped up ears, no follow up), Eye Problem ( right eye cornia causing blindness) Endocrine: History of: Diabetes Mellitus (NIDDM), Dyslipidemia, Thyroid Disorder Respiratory: History of: Asthma, Bronchitis, Obstructive Sleep Apnea, Pulmonary Embolism Genitourinary: History of: Kidney Stones, Recurring Urinary Tract Infections Musculoskeletal: No history of: Amputation Hematology: History of: Anemia Other: History of: Anesthesia Reactions (unable to breath after surgery before) , Skin Problems (forehead dry area) - Surgical History Cardiac Surgeries: Sugical HX of: Cardiac Surgery, Carotid Endarterectomy Thoracic Surgeries: Surgical HX of;: Kidney (Renal Surgery) Patient denies;: Organ Transplant, Lobectomy HEENT Surgeries: Surgical HX of: Carotid Endarterectomy Abdominal Surgeries: Patient denies: Abdominal Surgery Reproductive Surgeries: Patient denies;: Hysterectomy Orthopedic Surgeries: Patient denies;: Implanted Devices, Orthopedic Surgery, Spinal Surgery, Total Hip Replacement, Total Knee Replacement - Family History Family History: Reports;: Family Heart Disease - Social History Smoking Status: Never smoker Frequency of Alcohol Use: None Type of Drug Use: None Exam - Constitutional Vitals: Period Temp Pulse Resp BP Sys/Quintanilla Pulse Ox Last 24 Hr 96.3 F-98.6 F 71-92 18-20 94-148/54-90 90-92 Alert and oriented. Right shoulder exam shows mild restriction passive range of motion and moderate restriction in active range of motion. Perdomo, Neer's and trashcan impingement signs are positive. She is nontender over AC joint. She is tender over her subacromial space. She is nontender about her scapula. Cross body adduction testing is also positive. No masses are palpable. X-rays were reviewed and show that she has AC degenerative changes. Impression: Right shoulder pain probably secondary to rotator cuff Plan: I am not sure what role her falls of had as a source of causation of her right shoulder problems. This could possibly represent early adhesive capsulitis, rotator cuff tendinopathy with impingement or shoulder contusion/ rotator cuff strain. I agree with Occupational Therapy working on a rotator cuff strengthening and range of motion program. Results - Labs CBC & BMP: 04/10/17 05:31 04/10/17 05:31 Assessment and Plan (1) Right shoulder pain Status: Acute Current Visit: Yes Qualifiers: Chronicity: acute Qualified Code(s): M25.511 - Pain in right shoulder
[2017-04-10] MEDS: AMITRIPTYLINE 50 MG TABLET PO SCH (21:12)
[2017-04-10] MEDS: LEVOFLOXACIN INJ 500 MG in PREMIX 1 EACH IV SCH (21:51)
[2017-04-11] MEDS: methylPREDNISolone SOD SUC 40 MG/1 ML VIAL IV SCH ×3 (03:06→18:23)
[2017-04-11] MEDS: CLINDAMYCIN INJ 300 MG in PREMIX 1 EACH IV SCH ×4 (03:09→20:40)
[2017-04-11] MEDS: INSULIN LISPRO 100 UNIT/ML SUBCUT SCH ×4 (08:10→20:40)
[2017-04-11] MEDS: APIXABAN 5 MG TABLET PO SCH ×2 (09:14→20:40)
[2017-04-11] MEDS: CALCIUM (CARBONATE) 500 MG TABLET PO SCH (09:15)
[2017-04-11] MEDS: ATENOLOL 25 MG TABLET PO SCH ×2 (09:15→20:39)
[2017-04-11] MEDS: LISINOPRIL 10 MG TABLET PO SCH (09:15)
[2017-04-11] MEDS: DULoxetine 30 MG CAPSULE PO SCH (09:15)
[2017-04-11] MEDS: ATORVASTATIN 40 MG TABLET PO SCH (09:15)
[2017-04-11] MEDS: FUROSEMIDE 40 MG TABLET PO SCH ×2 (09:15→17:35)
[2017-04-11] MEDS: amLODIPine 2.5 MG TABLET PO SCH (09:15)
[2017-04-11] MEDS: ASPIRIN 325 MG TABLET PO SCH (09:15)
[2017-04-11] MEDS: BACITRACIN OINT 0.9 GM PACK TOP SCH (09:16)
[2017-04-11] MEDS: FERROUS SULFATE 325 MG TABLET PO SCH ×3 (09:16→20:39)
[2017-04-11] MEDS: glyBURIDE 5 MG TABLET PO SCH ×2 (09:16→17:34)
[2017-04-11] MEDS: metFORMIN 500 MG TABLET PO SCH ×2 (09:16→17:34)
[2017-04-11] MEDS: MAGNESIUM CHLORIDE 64 MG TABLET PO SCH (09:16)
[2017-04-11] MEDS: PANTOPRAZOLE 40 MG TABLET PO SCH (09:16)
[2017-04-11] MEDS ORDERED: CYANOCOBALAMIN 1000 MCG/1 ML VIAL IM ONE (10:04)
--- NOTE | 2017-04-11 10:47 | Pulmonology Progress Note ---
Pulmonary - PN: Subj Interval history: Saji Carrero, [facility] acting as scribe for Dr. Jose Burnett Ms. Orourke was admitted 04/09/2017 from [facility]. 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 Previous endarterectomy 06/18/2001. #7: Stent left internal carotid artery placed 06/18/[address] Ruano at [facility] #8: Hyperlipidemia #9: Exogenous obesity #10: Hypothyroidism #11: Chronic anticoagulation with Eliquis #12: See past history 04/10/2017. Patient was seen today along with Flower Ortega RN. The patient cellulitis and lymphangitis is already beginning to improve with IV antibiotics and IV Solu-Medrol. She has known diabetes mellitus and of course her glucoses are being aggravated by the necessary steroids. However, as evidenced by hemoglobin A1c of 8.6%, her glucoses have been under less than optimal control for quite some time. She is on her home dose of metformin 500 mg twice daily. We have started glyburide 5 mg twice daily. We will consult the diabetic education nurses as well as dietitian to speak with her regarding her diabetes mellitus. She is on sliding scale insulin as well. Admission the patient complained of right shoulder pain secondary to multiple recent falls. Shoulder x-ray showed findings showing questionable mild right AC joint injury superimposed on mild degenerative changes. She continues to complain of significant right shoulder pain, so we have consulted orthopedics and Occupational Therapy for evaluation and treatment. Medications have been reviewed. Glyburide added today. She is on her routine home medications. Labs been reviewed. White count at admission was 15,700 and is now fallen to 14 ,000 with 86.2% segs; H&H 13.2/38.3; platelet count 192,000; creatinine 0.70, BUN 19, electrolytes are normal; hemoglobin A1c 8.6%; liver function tests within normal limits; calcium 9.2; TSH was normal at 0.826, but free T4 was elevated at 1.53; urinalysis showed no evidence of infection 04/11/2017. The patient was seen today along with Bre Novoa RN. The patient has been seen in orthopedic consultation by Dr. Tejeda. His note has been reviewed. Occupational therapy is working with her for her right shoulder pain. She is also been seen in diabetic nursing education. Apparently, the patient was not taking her Metformin as prescribed by her primary care physician. She was only taking it once a day instead of twice a day. Nonetheless, with a hemoglobin A1c of 8.6% we will continue the glyburide as we feel it is indicated. Glucoses remain elevated, but this is aggravated by the Solu-Medrol that is required right now for her cellulitis/lymphangitis. The patient has a reported history of B12 deficiency. She states that her B12 injection was due last week but she did not have it. She asked for it to be given today. We have ordered a one-time dose. With regard to her cellulitis/ lymphangitis, it is slowly improving daily. There continues to be erythema and edema. Wound care is following along. Medications have been reviewed. We made no changes today. Labs been reviewed. Repeat free T4 is normal at 1.20 Exam (Progress Note) - Constitutional Vitals: Period Temp Pulse Resp BP Sys/Quintanilla Pulse Ox Last 24 Hr 96.7 F-98.5 F 67-78 16-22 94-132/54-75 90-96 Exam: Chest is wheeze free Heart no gallop Abdomen is nontender and nondistended; bowel sounds are positive 4 Extremities with less edema and less erythema than at admission; nothing to suggest acute deep venous thrombophlebitis Psychiatric oriented 3 Neurologic long-term motor function is intact Plan: B12 injection today. Continue present treatment. Continue therapy for right shoulder. See orders. Results - Labs CBC & BMP: 04/10/17 05:31 04/10/17 05:31
[2017-04-11] MEDS: AMITRIPTYLINE 50 MG TABLET PO SCH (20:40)
[2017-04-11] MEDS: LEVOFLOXACIN INJ 500 MG in PREMIX 1 EACH IV SCH (22:09)
[2017-04-12] MEDS: methylPREDNISolone SOD SUC 40 MG/1 ML VIAL IV SCH ×3 (02:01→18:02)
[2017-04-12] MEDS: CLINDAMYCIN INJ 300 MG in PREMIX 1 EACH IV SCH ×4 (02:01→20:58)
[2017-04-12] MEDS: INSULIN LISPRO 100 UNIT/ML SUBCUT SCH ×4 (08:36→20:57)
[2017-04-12] MEDS: metFORMIN 500 MG TABLET PO SCH ×2 (08:39→17:12)
[2017-04-12] MEDS: LISINOPRIL 10 MG TABLET PO SCH (08:39)
[2017-04-12] MEDS: FERROUS SULFATE 325 MG TABLET PO SCH ×3 (08:39→20:57)
[2017-04-12] MEDS: ATENOLOL 25 MG TABLET PO SCH ×2 (08:39→20:58)
[2017-04-12] MEDS: MAGNESIUM CHLORIDE 64 MG TABLET PO SCH (08:39)
[2017-04-12] MEDS: DULoxetine 30 MG CAPSULE PO SCH (08:39)
[2017-04-12] MEDS: glyBURIDE 5 MG TABLET PO SCH ×2 (08:39→17:12)
[2017-04-12] MEDS: CALCIUM (CARBONATE) 500 MG TABLET PO SCH (08:39)
[2017-04-12] MEDS: PANTOPRAZOLE 40 MG TABLET PO SCH (08:39)
[2017-04-12] MEDS: amLODIPine 2.5 MG TABLET PO SCH (08:39)
[2017-04-12] MEDS: FUROSEMIDE 40 MG TABLET PO SCH ×2 (08:39→16:04)
[2017-04-12] MEDS: ASPIRIN 325 MG TABLET PO SCH (08:39)
[2017-04-12] MEDS: ATORVASTATIN 40 MG TABLET PO SCH (08:39)
[2017-04-12] MEDS: BACITRACIN OINT 0.9 GM PACK TOP SCH (08:40)
[2017-04-12] MEDS: APIXABAN 5 MG TABLET PO SCH ×2 (08:40→20:57)
--- NOTE | 2017-04-12 10:59 | Pulmonology Progress Note ---
Pulmonary - PN: Subj Interval history: Ms. Orourke was admitted 04/09/2017 from [facility]. 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 Previous endarterectomy 06/18/2001. #7: Stent left internal carotid artery placed 06/18/[address] Ruano at [facility] #8: Hyperlipidemia #9: Exogenous obesity #10: Hypothyroidism #11: Chronic anticoagulation with Eliquis #12: See past history 04/10/2017. Patient was seen today along with Flower Ortega RN. The patient cellulitis and lymphangitis is already beginning to improve with IV antibiotics and IV Solu-Medrol. She has known diabetes mellitus and of course her glucoses are being aggravated by the necessary steroids. However, as evidenced by hemoglobin A1c of 8.6%, her glucoses have been under less than optimal control for quite some time. She is on her home dose of metformin 500 mg twice daily. We have started glyburide 5 mg twice daily. We will consult the diabetic education nurses as well as dietitian to speak with her regarding her diabetes mellitus. She is on sliding scale insulin as well. Admission the patient complained of right shoulder pain secondary to multiple recent falls. Shoulder x-ray showed findings showing questionable mild right AC joint injury superimposed on mild degenerative changes. She continues to complain of significant right shoulder pain, so we have consulted orthopedics and Occupational Therapy for evaluation and treatment. Medications have been reviewed. Glyburide added today. She is on her routine home medications. Labs been reviewed. White count at admission was 15,700 and is now fallen to 14 ,000 with 86.2% segs; H&H 13.2/38.3; platelet count 192,000; creatinine 0.70, BUN 19, electrolytes are normal; hemoglobin A1c 8.6%; liver function tests within normal limits; calcium 9.2; TSH was normal at 0.826, but free T4 was elevated at 1.53; urinalysis showed no evidence of infection 04/11/2017. The patient was seen today along with Bre Novoa RN. The patient has been seen in orthopedic consultation by Dr. Tejeda. His note has been reviewed. Occupational therapy is working with her for her right shoulder pain. She is also been seen in diabetic nursing education. Apparently, the patient was not taking her Metformin as prescribed by her primary care physician. She was only taking it once a day instead of twice a day. Nonetheless, with a hemoglobin A1c of 8.6% we will continue the glyburide as we feel it is indicated. Glucoses remain elevated, but this is aggravated by the Solu-Medrol that is required right now for her cellulitis/lymphangitis. The patient has a reported history of B12 deficiency. She states that her B12 injection was due last week but she did not have it. She asked for it to be given today. We have ordered a one-time dose. With regard to her cellulitis/ lymphangitis, it is slowly improving daily. There continues to be erythema and edema. Wound care is following along. Medications have been reviewed. We made no changes today. Labs been reviewed. Repeat free T4 is normal at 1.20 04/12/2017. Patient's left lower extremity continues to improve. Erythema is improving and is good bit less edema. The underlying skin is dry. I am adding Lotrisone cream twice a day. Told the patient she probably be ready for discharge on Friday. Lab and medicines have been reviewed. Patient feels like she is better no new requests. Exam (Progress Note) - Constitutional Vitals: Period Temp Pulse Resp BP Sys/Quintanilla Pulse Ox Last 24 Hr 96.7 F-98.5 F 67-78 16-22 94-132/54-75 90-96 Exam: Face. Symmetrical. No edema of the tongue or lips. Neck. Symmetrical. No meningismus. Lymphatics. No submandibular cervical supraclavicular or epitrochlear adenopathy. Chest is wheeze free Heart no gallop Abdomen is nontender and nondistended; bowel sounds are positive 4 Extremities with less edema and less erythema than at admission; nothing to suggest acute deep venous thrombophlebitis Psychiatric oriented 3 Neurologic long-term motor function is intact The remainder the physical exam is negative. Plan: 04/11/2017. 1. B12 injection today. 2. Continue present treatment. 3. Continue therapy for right shoulder. 4. See orders. 04/12/2017. 1. See today's note above 2. Lotrisone cream 3. Friday Exam (Progress Note) - Constitutional Vitals: Period Temp Pulse Resp BP Sys/Quintanilla Pulse Ox Last 24 Hr 97.1 F-98.1 F 61-82 18-20 102-140/56-72 92-96 Results - Labs CBC & BMP: 04/10/17 05:31 04/10/17 05:31
[2017-04-12] MEDS: traMADol 50 MG TABLET PO PRN (20:57)
[2017-04-12] MEDS: CLOTRIMAZOLE/BETAMETHASONE CREAM 15 GM TUBE TOP SCH (20:58)
[2017-04-12] MEDS: AMITRIPTYLINE 50 MG TABLET PO SCH (20:59)
[2017-04-12] MEDS: LEVOFLOXACIN INJ 500 MG in PREMIX 1 EACH IV SCH (21:00)
[2017-04-13] MEDS: CLINDAMYCIN INJ 300 MG in PREMIX 1 EACH IV SCH ×4 (02:13→20:44)
[2017-04-13] MEDS: methylPREDNISolone SOD SUC 40 MG/1 ML VIAL IV SCH ×3 (02:14→18:12)
[2017-04-13] MEDS: FERROUS SULFATE 325 MG TABLET PO SCH ×3 (08:39→20:44)
[2017-04-13] MEDS: metFORMIN 500 MG TABLET PO SCH ×2 (08:39→17:01)
[2017-04-13] MEDS: MAGNESIUM CHLORIDE 64 MG TABLET PO SCH (08:39)
[2017-04-13] MEDS: ATORVASTATIN 40 MG TABLET PO SCH (08:39)
[2017-04-13] MEDS: ASPIRIN 325 MG TABLET PO SCH (08:39)
[2017-04-13] MEDS: FUROSEMIDE 40 MG TABLET PO SCH ×2 (08:39→15:54)
[2017-04-13] MEDS: LISINOPRIL 10 MG TABLET PO SCH (08:39)
[2017-04-13] MEDS: APIXABAN 5 MG TABLET PO SCH ×2 (08:40→20:44)
[2017-04-13] MEDS: BACITRACIN OINT 0.9 GM PACK TOP SCH (08:40)
[2017-04-13] MEDS: amLODIPine 2.5 MG TABLET PO SCH (08:40)
[2017-04-13] MEDS: DULoxetine 30 MG CAPSULE PO SCH (08:40)
[2017-04-13] MEDS: glyBURIDE 5 MG TABLET PO SCH ×2 (08:40→17:01)
[2017-04-13] MEDS: ATENOLOL 25 MG TABLET PO SCH ×2 (08:40→20:44)
[2017-04-13] MEDS: PANTOPRAZOLE 40 MG TABLET PO SCH (08:40)
[2017-04-13] MEDS: CALCIUM (CARBONATE) 500 MG TABLET PO SCH (08:40)
[2017-04-13] MEDS: INSULIN LISPRO 100 UNIT/ML SUBCUT SCH ×4 (08:40→20:43)
[2017-04-13] MEDS: CLOTRIMAZOLE/BETAMETHASONE CREAM 15 GM TUBE TOP SCH ×2 (08:40→20:48)
--- NOTE | 2017-04-13 13:30 | Pulmonology Progress Note ---
Pulmonary - PN: Subj Interval history: Ms. Orourke was admitted 04/09/2017 from [facility]. 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 Previous endarterectomy 06/18/2001. #7: Stent left internal carotid artery placed 06/18/[address] Ruano at [facility] #8: Hyperlipidemia #9: Exogenous obesity #10: Hypothyroidism #11: Chronic anticoagulation with Eliquis #12: See past history 04/10/2017. Patient was seen today along with Flower Ortega RN. The patient cellulitis and lymphangitis is already beginning to improve with IV antibiotics and IV Solu-Medrol. She has known diabetes mellitus and of course her glucoses are being aggravated by the necessary steroids. However, as evidenced by hemoglobin A1c of 8.6%, her glucoses have been under less than optimal control for quite some time. She is on her home dose of metformin 500 mg twice daily. We have started glyburide 5 mg twice daily. We will consult the diabetic education nurses as well as dietitian to speak with her regarding her diabetes mellitus. She is on sliding scale insulin as well. Admission the patient complained of right shoulder pain secondary to multiple recent falls. Shoulder x-ray showed findings showing questionable mild right AC joint injury superimposed on mild degenerative changes. She continues to complain of significant right shoulder pain, so we have consulted orthopedics and Occupational Therapy for evaluation and treatment. Medications have been reviewed. Glyburide added today. She is on her routine home medications. Labs been reviewed. White count at admission was 15,700 and is now fallen to 14 ,000 with 86.2% segs; H&H 13.2/38.3; platelet count 192,000; creatinine 0.70, BUN 19, electrolytes are normal; hemoglobin A1c 8.6%; liver function tests within normal limits; calcium 9.2; TSH was normal at 0.826, but free T4 was elevated at 1.53; urinalysis showed no evidence of infection 04/11/2017. The patient was seen today along with Bre Novoa RN. The patient has been seen in orthopedic consultation by Dr. Tejeda. His note has been reviewed. Occupational therapy is working with her for her right shoulder pain. She is also been seen in diabetic nursing education. Apparently, the patient was not taking her Metformin as prescribed by her primary care physician. She was only taking it once a day instead of twice a day. Nonetheless, with a hemoglobin A1c of 8.6% we will continue the glyburide as we feel it is indicated. Glucoses remain elevated, but this is aggravated by the Solu-Medrol that is required right now for her cellulitis/lymphangitis. The patient has a reported history of B12 deficiency. She states that her B12 injection was due last week but she did not have it. She asked for it to be given today. We have ordered a one-time dose. With regard to her cellulitis/ lymphangitis, it is slowly improving daily. There continues to be erythema and edema. Wound care is following along. Medications have been reviewed. We made no changes today. Labs been reviewed. Repeat free T4 is normal at 1.20 04/12/2017. Patient's left lower extremity continues to improve. Erythema is improving and is good bit less edema. The underlying skin is dry. I am adding Lotrisone cream twice a day. Told the patient she probably be ready for discharge on Friday. Lab and medicines have been reviewed. Patient feels like she is better no new requests. 04/13/2017. Patient's left lower extremity continues to decrease in size and decrease in erythema. Yesterday Lotrisone cream was added and his skin looks much better. There is less dryness and flakiness. Patient says it feels a lot better. Her repeat T4 was normal. Glucoses are under acceptable control. We have no positive cultures. This patient is on schedule for discharge on Friday. Exam (Progress Note) - Constitutional Vitals: Period Temp Pulse Resp BP Sys/Quintanilla Pulse Ox Last 24 Hr 96.7 F-98.5 F 67-78 16-22 94-132/54-75 90-96 Exam: Face. Symmetrical. No edema of the tongue or lips. Neck. Symmetrical. No meningismus. Lymphatics. No submandibular cervical supraclavicular or epitrochlear adenopathy. Chest is wheeze free Heart no gallop Abdomen is nontender and nondistended; bowel sounds are positive 4 Extremities with less edema and less erythema than at admission; nothing to suggest acute deep venous thrombophlebitis Psychiatric oriented 3 Neurologic long-term motor function is intact The remainder the physical exam is negative. Plan: 04/11/2017. 1. B12 injection today. 2. Continue present treatment. 3. Continue therapy for right shoulder. 4. See orders. 04/12/2017. 1. See today's note above 2. Lotrisone cream 3. Friday04/13/2017. 1. See today's note above 2. Probable to see this Exam (Progress Note) - Constitutional Vitals: Period Temp Pulse Resp BP Sys/Quintanilla Pulse Ox Last 24 Hr 97 F-98 F 58-79 16-20 97-160/56-85 91-98 Results - Labs CBC & BMP: 04/10/17 05:31 04/10/17 05:31
[2017-04-13] MEDS: traMADol 50 MG TABLET PO PRN (20:43)
[2017-04-13] MEDS: AMITRIPTYLINE 50 MG TABLET PO SCH (20:44)
[2017-04-13] MEDS: LEVOFLOXACIN INJ 500 MG in PREMIX 1 EACH IV SCH (22:26)
[2017-04-14] MEDS: methylPREDNISolone SOD SUC 40 MG/1 ML VIAL IV SCH ×3 (02:04→18:45)
[2017-04-14] MEDS: CLINDAMYCIN INJ 300 MG in PREMIX 1 EACH IV SCH ×4 (02:04→21:42)
[2017-04-14] MEDS: INSULIN LISPRO 100 UNIT/ML SUBCUT SCH ×4 (08:59→21:38)
[2017-04-14] MEDS: ASPIRIN 325 MG TABLET PO SCH (08:59)
[2017-04-14] MEDS: FUROSEMIDE 40 MG TABLET PO SCH ×2 (09:00→15:13)
[2017-04-14] MEDS: PANTOPRAZOLE 40 MG TABLET PO SCH (09:00)
[2017-04-14] MEDS: glyBURIDE 5 MG TABLET PO SCH ×2 (09:00→17:07)
[2017-04-14] MEDS: CALCIUM (CARBONATE) 500 MG TABLET PO SCH (09:00)
[2017-04-14] MEDS: ATENOLOL 25 MG TABLET PO SCH ×2 (09:00→21:46)
[2017-04-14] MEDS: APIXABAN 5 MG TABLET PO SCH ×2 (09:00→21:38)
[2017-04-14] MEDS: LISINOPRIL 10 MG TABLET PO SCH (09:00)
[2017-04-14] MEDS: metFORMIN 500 MG TABLET PO SCH ×2 (09:00→17:07)
[2017-04-14] MEDS: FERROUS SULFATE 325 MG TABLET PO SCH ×3 (09:00→21:38)
[2017-04-14] MEDS: ATORVASTATIN 40 MG TABLET PO SCH (09:00)
[2017-04-14] MEDS: amLODIPine 2.5 MG TABLET PO SCH (09:00)
[2017-04-14] MEDS: MAGNESIUM CHLORIDE 64 MG TABLET PO SCH (09:00)
[2017-04-14] MEDS: DULoxetine 30 MG CAPSULE PO SCH (09:01)
[2017-04-14] MEDS: BACITRACIN OINT 0.9 GM PACK TOP SCH (09:01)
--- NOTE | 2017-04-14 12:04 | Orthopedic Progress Note ---
Assessment and Plan (1) Right shoulder pain Status: Acute Current Visit: Yes Qualifiers: Chronicity: acute Qualified Code(s): M25.511 - Pain in right shoulder Orthopedics - Subjective Interval history: Ms. Orourke shoulder has improved. She is still having pain with abduction and pain at night. She has been working with occupational therapy. Exam shows impingement signs are positive. She is tender about the lateral aspect of her subacromial space. Impression right shoulder rotator cuff tendinopathy with impingement Plan: She is to continue with her shoulder exercises at home. She would like to call for an appointment if her shoulder fails to improve. Exam - Constitutional Vitals: Period Temp Pulse Resp BP Sys/Quintanilla Pulse Ox Last 24 Hr 97.2 F-98.4 F 62-70 17-20 91-158/50-93 91-97 Results - Labs CBC & BMP: 04/10/17 05:31 04/10/17 05:31 Quality Measures - VTE Contraindication to Pharmacological VTE Prophylaxis: Already on Theraputic Agent , No Prophylaxis Needed Contraindication to Mechanical VTE Prophylaxis: Local Inflammation - Stroke Symptom Onset Unknown: No
[2017-04-14] MEDS: CLOTRIMAZOLE/BETAMETHASONE CREAM 15 GM TUBE TOP SCH ×2 (12:27→21:43)
--- NOTE | 2017-04-14 13:05 | Pulmonology Progress Note ---
Pulmonary - PN: Subj Interval history: Saji Carrero, [facility] acting as scribe for Dr. Jose Burnett Ms. Orourke was admitted 04/09/2017 from [facility]. 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 Previous endarterectomy 06/18/2001. #7: Stent left internal carotid artery placed 06/18/[address] Ruano at [facility] #8: Hyperlipidemia #9: Exogenous obesity #10: Hypothyroidism #11: Chronic anticoagulation with Eliquis #12: See past history 04/10/2017. Patient was seen today along with Flower Ortega RN. The patient cellulitis and lymphangitis is already beginning to improve with IV antibiotics and IV Solu-Medrol. She has known diabetes mellitus and of course her glucoses are being aggravated by the necessary steroids. However, as evidenced by hemoglobin A1c of 8.6%, her glucoses have been under less than optimal control for quite some time. She is on her home dose of metformin 500 mg twice daily. We have started glyburide 5 mg twice daily. We will consult the diabetic education nurses as well as dietitian to speak with her regarding her diabetes mellitus. She is on sliding scale insulin as well. Admission the patient complained of right shoulder pain secondary to multiple recent falls. Shoulder x-ray showed findings showing questionable mild right AC joint injury superimposed on mild degenerative changes. She continues to complain of significant right shoulder pain, so we have consulted orthopedics and Occupational Therapy for evaluation and treatment. Medications have been reviewed. Glyburide added today. She is on her routine home medications. Labs been reviewed. White count at admission was 15,700 and is now fallen to 14 ,000 with 86.2% segs; H&H 13.2/38.3; platelet count 192,000; creatinine 0.70, BUN 19, electrolytes are normal; hemoglobin A1c 8.6%; liver function tests within normal limits; calcium 9.2; TSH was normal at 0.826, but free T4 was elevated at 1.53; urinalysis showed no evidence of infection 04/11/2017. The patient was seen today along with Bre Novoa RN. The patient has been seen in orthopedic consultation by Dr. Tejeda. His note has been reviewed. Occupational therapy is working with her for her right shoulder pain. She is also been seen in diabetic nursing education. Apparently, the patient was not taking her Metformin as prescribed by her primary care physician. She was only taking it once a day instead of twice a day. Nonetheless, with a hemoglobin A1c of 8.6% we will continue the glyburide as we feel it is indicated. Glucoses remain elevated, but this is aggravated by the Solu-Medrol that is required right now for her cellulitis/lymphangitis. The patient has a reported history of B12 deficiency. She states that her B12 injection was due last week but she did not have it. She asked for it to be given today. We have ordered a one-time dose. With regard to her cellulitis/ lymphangitis, it is slowly improving daily. There continues to be erythema and edema. Wound care is following along. Medications have been reviewed. We made no changes today. Labs been reviewed. Repeat free T4 is normal at 1.20 04/12/2017. Patient's left lower extremity continues to improve. Erythema is improving and is good bit less edema. The underlying skin is dry. I am adding Lotrisone cream twice a day. Told the patient she probably be ready for discharge on Friday. Lab and medicines have been reviewed. Patient feels like she is better no new requests. 04/13/2017. Patient's left lower extremity continues to decrease in size and decrease in erythema. Yesterday Lotrisone cream was added and his skin looks much better. There is less dryness and flakiness. Patient says it feels a lot better. Her repeat T4 was normal. Glucoses are under acceptable control. We have no positive cultures. This patient is on schedule for discharge on Friday. 04/14/2017. The patient was seen today along with Flower Ortega RN. Patient continues to do well with improvement in her cellulitis/lymphangitis. Her glucoses are coming under better control. Again, she was not taking her metformin as prescribed at admission. Nonetheless, she is now taking metformin twice daily as well as glyburide. She has been seen in dietary and diabetic nursing education consultations. Medications have been reviewed. We made no changes today. Labs been reviewed. No new labs were drawn today. Exam (Progress Note) - Constitutional Vitals: Period Temp Pulse Resp BP Sys/Quintanilla Pulse Ox Last 24 Hr 97.2 F-98.4 F 62-70 17-20 91-158/50-93 91-97 Exam: Chest is wheeze free Heart no gallop Abdomen is nontender and nondistended; bowel sounds are positive 4 Extremities with less edema and less erythema than at admission; nothing to suggest acute deep venous thrombophlebitis Psychiatric oriented 3 Neurologic long-term motor function is intact Plan: Continue present treatment. She should be suitable for discharge tomorrow as discussed with her to her understanding. She is in agreement. Results - Labs CBC & BMP: 04/10/17 05:31 04/10/17 05:31
[2017-04-14] MEDS: AMITRIPTYLINE 50 MG TABLET PO SCH (21:38)
[2017-04-14] MEDS: LEVOFLOXACIN INJ 500 MG in PREMIX 1 EACH IV SCH (22:39)
[2017-04-15] MEDS: methylPREDNISolone SOD SUC 40 MG/1 ML VIAL IV SCH ×2 (02:57→12:13)
[2017-04-15] MEDS: CLINDAMYCIN INJ 300 MG in PREMIX 1 EACH IV SCH ×2 (02:58→09:07)
[2017-04-15] MEDS: ATENOLOL 25 MG TABLET PO SCH (09:01)
[2017-04-15] MEDS: INSULIN LISPRO 100 UNIT/ML SUBCUT SCH ×2 (09:01→12:13)
[2017-04-15] MEDS: FUROSEMIDE 40 MG TABLET PO SCH (09:02)
[2017-04-15] MEDS: APIXABAN 5 MG TABLET PO SCH (09:02)
[2017-04-15] MEDS: CALCIUM (CARBONATE) 500 MG TABLET PO SCH (09:02)
[2017-04-15] MEDS: ATORVASTATIN 40 MG TABLET PO SCH (09:02)
[2017-04-15] MEDS: MAGNESIUM CHLORIDE 64 MG TABLET PO SCH (09:02)
[2017-04-15] MEDS: ASPIRIN 325 MG TABLET PO SCH (09:03)
[2017-04-15] MEDS: glyBURIDE 5 MG TABLET PO SCH (09:03)
[2017-04-15] MEDS: FERROUS SULFATE 325 MG TABLET PO SCH (09:03)
[2017-04-15] MEDS: metFORMIN 500 MG TABLET PO SCH (09:04)
[2017-04-15] MEDS: PANTOPRAZOLE 40 MG TABLET PO SCH (09:04)
[2017-04-15] MEDS: amLODIPine 2.5 MG TABLET PO SCH (09:04)
[2017-04-15] MEDS: CLOTRIMAZOLE/BETAMETHASONE CREAM 15 GM TUBE TOP SCH (09:04)
[2017-04-15] MEDS: LISINOPRIL 10 MG TABLET PO SCH (09:04)
[2017-04-15] MEDS: BACITRACIN OINT 0.9 GM PACK TOP SCH (09:18)
[2017-04-15] MEDS: DULoxetine 30 MG CAPSULE PO SCH (09:18)
--- NOTE | 2017-04-15 11:30 | Pulmonology Progress Note ---
Pulmonary - PN: Subj Interval history: Ms. Orourke was [facility]. At the time of admission, our impressions were: #1: Acute cellulitis and lymphangitis of the bilateral lower extremities left greater than right #2: Multiple recent falls with complaint of right shoulder pain. No falls or to the right. The right shoulder pain appears to be capsulitis. During the patient's hospitalization she was seen by Dr. Garcia in orthopedic consultation. 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 Previous endarterectomy 06/18/2001. #7: Stent left internal carotid artery placed 06/18/[address] Ruano at [facility] #8: Hyperlipidemia #9: Exogenous obesity #10: Hypothyroidism #11: Chronic anticoagulation with Eliquis #12: See past history 04/10/2017. Patient was seen today along with Flower Ortega RN. The patient cellulitis and lymphangitis is already beginning to improve with IV antibiotics and IV Solu-Medrol. She has known diabetes mellitus and of course her glucoses are being aggravated by the necessary steroids. However, as evidenced by hemoglobin A1c of 8.6%, her glucoses have been under less than optimal control for quite some time. She is on her home dose of metformin 500 mg twice daily. We have started glyburide 5 mg twice daily. We will consult the diabetic education nurses as well as dietitian to speak with her regarding her diabetes mellitus. She is on sliding scale insulin as well. Admission the patient complained of right shoulder pain secondary to multiple recent falls. Shoulder x-ray showed findings showing questionable mild right AC joint injury superimposed on mild degenerative changes. She continues to complain of significant right shoulder pain, so we have consulted orthopedics and Occupational Therapy for evaluation and treatment. Medications have been reviewed. Glyburide added today. She is on her routine home medications. Labs been reviewed. White count at admission was 15,700 and is now fallen to 14 ,000 with 86.2% segs; H&H 13.2/38.3; platelet count 192,000; creatinine 0.70, BUN 19, electrolytes are normal; hemoglobin A1c 8.6%; liver function tests within normal limits; calcium 9.2; TSH was normal at 0.826, but free T4 was elevated at 1.53; urinalysis showed no evidence of infection 04/11/2017. The patient was seen today along with Bre Novoa RN. The patient has been seen in orthopedic consultation by Dr. Tejeda. His note has been reviewed. Occupational therapy is working with her for her right shoulder pain. She is also been seen in diabetic nursing education. Apparently, the patient was not taking her Metformin as prescribed by her primary care physician. She was only taking it once a day instead of twice a day. Nonetheless, with a hemoglobin A1c of 8.6% we will continue the glyburide as we feel it is indicated. Glucoses remain elevated, but this is aggravated by the Solu-Medrol that is required right now for her cellulitis/lymphangitis. The patient has a reported history of B12 deficiency. She states that her B12 injection was due last week but she did not have it. She asked for it to be given today. We have ordered a one-time dose. With regard to her cellulitis/ lymphangitis, it is slowly improving daily. There continues to be erythema and edema. Wound care is following along. Medications have been reviewed. We made no changes today. Labs been reviewed. Repeat free T4 is normal at 1.20 04/12/2017. Patient's left lower extremity continues to improve. Erythema is improving and is good bit less edema. The underlying skin is dry. I am adding Lotrisone cream twice a day. Told the patient she probably be ready for discharge on Friday. Lab and medicines have been reviewed. Patient feels like she is better no new requests. 04/13/2017. Patient's left lower extremity continues to decrease in size and decrease in erythema. Yesterday Lotrisone cream was added and his skin looks much better. There is less dryness and flakiness. Patient says it feels a lot better. Her repeat T4 was normal. Glucoses are under acceptable control. We have no positive cultures. This patient is on schedule for discharge on Friday. 04/15/2017. Patient's left lower extremity looks good today. She was seen along with her daughter. I explained to the mechanism of recurrent edema is a underlying cause of the lymphangitis component of this. Talked to her about watching her sodium wearing tight socks when she is going to be up a long time and repeatedly elevating her foot and use repetitive dorsi flexion. She also has questions about her shoulder. She is seen physical therapy and they have given her some exercise. I have shown her some other range of motions that are usually helpful with the shoulder. Apparently she has a capsulitis. She has been seen by orthopedics. See that note. I have told her she can expect 6 months with this to clear up if she is consistent with her physical therapy. I gave her a lot of things to be careful about not do with her shoulder and will tend to aggravate it. This patient will be referred back to Alexandrea Rodriguez nurse practitioner. Exam (Progress Note) - Constitutional Vitals: Period Temp Pulse Resp BP Sys/Quintanilla Pulse Ox Last 24 Hr 96.7 F-98.5 F 67-78 16-22 94-132/54-75 90-96 Exam: Face. Symmetrical. No edema of the tongue or lips. Neck. Symmetrical. No meningismus. Lymphatics. No submandibular cervical supraclavicular or epitrochlear adenopathy. Chest is wheeze free Heart no gallop Abdomen is nontender and nondistended; bowel sounds are positive 4 Extremities with less edema and less erythema than at admission; nothing to suggest acute deep venous thrombophlebitis Psychiatric oriented 3 Neurologic long-term motor function is intact The remainder the physical exam is negative. Plan: 04/11/2017. 1. B12 injection today. 2. Continue present treatment. 3. Continue therapy for right shoulder. 4. See orders. 04/12/2017. 1. See today's note above 2. Lotrisone cream 3. Friday04/13/2017. 1. See today's note above 2. Probable to see this 04/15/2017. 1. See my note above 2. See discharge summary Exam (Progress Note) - Constitutional Vitals: Period Temp Pulse Resp BP Sys/Quintanilla Pulse Ox Last 24 Hr 97.4 F-98.4 F 60-72 18-18 101-151/60-86 90-94 Results - Labs CBC & BMP: 04/10/17 05:31 04/10/17 05:31
[2017-04-15 12:00] VITALS: BP 111/70
--- NOTE | 2017-04-15 12:06 | Discharge Summary ---
Hospital Course - Hospital Course Hospital Course: Sajijose JoshiMagan, [facility], acting as scribe for Dr. Jose Burnett Ms. Orourke is a 71 year old female who was seen [facility] by Alexandrea Adams NP, with complaints of bilateral lower extremity edema, erythema, and pain. Upon evaluation, the patient was noted to have +4/4 bilateral lower extremity edema that extended up to the knee with erythema that was mainly anterior all consistent with cellulitis and lymphangitis. Her gait had been unstable secondary to this and she has had multiple recent falls. Given her acute illness, advanced age, multiple comorbidities, it was felt in her best interest to hospitalize for further evaluation and care. She was admitted and started on IV antibiotics of Cleocin and Levaquin. She was also started on IV Solu-Medrol. With these measures and elevation, her erythema and edema has markedly improved. We have shown her ways to decrease her edema including elevation and pumping her feet back and forth to promote lymphatic flow. At discharge, she will continue on the short tapering dose of prednisone and follow with Alexandrea Adams NP, in 1 week. At admission the patient also complained of significant right shoulder pain. She was seen in orthopedic consultation by Dr. Tejeda. X-ray of the right shoulder showed questionable mild right AC joint injury superimposed on mild degenerative changes. No surgical intervention was needed. The patient has been working with physical therapy and trying various exercises that she can do an outpatient setting. Over time, her right shoulder pain has improved. She was offered outpatient physical therapy, but requested to continue the exercises that she is been shown at home. She has known diabetes mellitus. Dr. Camarillo who is her primary care provider had started the patient on metformin 500 mg twice daily prior to this admission. However, the patient was only taking this once a day. Hemoglobin A1c was noted to be elevated at 8.6% showing poor control of her diabetes mellitus. She was seen in consultation by the dietitian and diabetic education nurses. Metformin was changed back to 500 mg twice daily and we also added glyburide 5 mg twice daily. Her glucoses while inpatient have been aggravated somewhat by the required steroids needed for her cellulitis/lymphangitis. Nonetheless, with the addition of the higher dose of metformin as well as glyburide, her glucoses have come under better control. This will improve over time when her steroids are tapered off. We will defer further management of this back to Dr. Camarillo. At discharge, white count is 14,000 with 86.2% segs, 6.0% lymphs, 7.1% monos; H& H 13.2/38.3 with normal indices and normal red blood cell distribution width; platelet count 192,000; creatinine 0.70, BUN 19, sodium 136, potassium 3.5, magnesium 1.9; liver function tests within normal limits with exception of a minimally elevated alkaline phosphatase of 139; calcium 9.2, albumin 3.3, total protein 7.3; globulins 4.0; TSH is normal at 0.826 and free T4 was initially elevated at 1.53 but on recheck was normal at 1.20; hemoglobin A1c elevated at 8.6%; urinalysis showed no evidence of infection For more information regarding Ms. Orourke's past medical history, surgical history, family history, social history, admit labs, admit x-ray and admit exam , please see the admission note dated 04/09/2017. Impression: #1: Acute cellulitis and lymphangitis of the bilateral lower extremities left greater than right--- resolved #2: Multiple recent falls with complaint of right shoulder pain. X-ray of the right shoulder this admission showed questionable mild right AC joint injury superimposed on mild degenerative changes. Pain is improved at discharge. 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 Previous endarterectomy 06/18/2001. #7: Stent left internal carotid artery placed 06/18/[address] Ruano at [facility] #8: Hyperlipidemia #9: Exogenous obesity #10: Hypothyroidism--- corrected #11: Chronic anticoagulation with Eliquis #12: See past history Plan: Prednisone 10 mg daily for 5 days then 10 mg every other day for 5 doses, Elavil 50 mg at bedtime, Norvasc 2.5 mg daily, Eliquis 5 mg twice daily, aspirin 325 mg daily, atenolol 25 mg twice daily, Lipitor 60 mg daily, Cymbalta 30 mg daily, ferrous sulfate 325 mg 3 times daily, Lasix 40 mg twice daily, glyburide 5 mg twice daily, Slow-Mag 64 mg daily, metformin 500 mg twice daily, Protonix 40 mg daily, metoprolol tartrate 25 mg daily, and levothyroxine 176 mcg daily. She will be scheduled follow-up with Alexandrea Adams, nurse practitioner, in 1 week with TSH and free T4. She could be seen sooner if needed. It might be prudent to look at combining the patient's Lopressor and atenolol. Specialty Discharge - Follow Up or Referrals Follow up with: Alexandrea Adams CFNP [Advanced Practice Nurse] - 1 Week (with TSH and Free T4) Discharge Plan - Discharge Data Disposition: Disch To Home/Self Care Condition at Discharge: Stable Discharge Diet: diabetic diet Activity: resume usual activities as tolerated - Discharge Medications New Magnesium Chloride [Slow Mag] 64 mg PO DAILY #30 tablet glyBURIDE [Diabeta] 5 mg PO BID W/MEALS #60 tablet metFORMIN [Glucophage] 500 mg PO BID W/MEALS #60 tablet predniSONE TAB [PredniSONE] 10 mg PO DIRECTED #10 tablet Continue Aspirin/Calcium Carbonate/Mag [Aspirin Buffered 325 mg Tab] 325 mg PO DAILY Furosemide 40 mg PO BID Metoprolol Tartrate 25 mg PO DAILY Ferrous Sulfate 325 mg PO TID Atenolol 25 mg PO BID Amitriptyline [Elavil] 50 mg PO DAILY Levothyroxine Sodium 176 mcg PO DAILY Atorvastatin [Lipitor] 60 mg PO DAILY DULoxetine [Cymbalta] 30 mg PO DAILY Amlodipine Besylate 2.5 mg PO DAILY Apixaban [Eliquis] 5 mg PO BID #60 tablet Pantoprazole Tab [Protonix Tab] 40 mg PO DAILY #30 tablet Discontinued metFORMIN [Glucophage] 500 mg PO DAILY - Follow Up or Referral - Forms/Instructions Exam - Constitutional Vitals: Period Temp Pulse Resp BP Sys/Quintanilla Pulse Ox Last 24 Hr 97.4 F-98.4 F 60-72 18-18 101-151/60-86 90-94 Discharge Results Labs on day of discharge: Labs from last 24 hours 04/15/17 04/14/17 04/14/17 07:35 20:59 16:21 POC Glucose 186 H 260 H 217 H DS: Provider Date of admission: 04/09/17 18:00 Primary care physician: Carmela Camarillo MD Attending physician on admission: Jose Burnett MD Consults: 04/10/17 07:14 Consult to Wound Care - [facility] [CONS] Routine Reason for Wound Care: Wound Care Management 04/10/17 10:09 Consult to [facility], Educator [CONS] Routine Reason for Stonemason Helper: Diabetes Education Evaluate and Recommend Consult Comment: HgbA1c 8.6%; starting Glyburide; already on Metformin Consult to Dietitian [CONS] Routine Reason for Dietitian: Diet Recommendations Diet Instruction Consult Comment: DM; HgbA1c 8.6% Consult to Occupational Therapy [CONS] Routine Reason for Occupational Therapy: Evaluate and Treat Other Consult Comment: right shoulder pain; abn xray; ortho consult pending Consult to Physician [CONS] Routine Comment: right shoulder pain; abn xray Consulting Provider: [facility] Notified: CAPRI Date Notified: 04/10/17 Time Notified: 10:28 04/13/17 13:28 Consult to Physical Therapy [CONS] Routine Reason for Physical Therapy: Osteoarthritis Consult Comment: right shoulder Discharging clinician: ENEDINA Jernigan
== END 2017-04-15 14:50 | disposition home or self-care (01) | DRG 603 ==
LOC: N.5E 18:00
PROVIDERS: ADMIT Internal Medicine Pulmonary Disease; ATTEND Internal Medicine Pulmonary Disease

== ENCOUNTER 2017-11-26 18:50 | Inpatient (IN) ==
[2017-11-26 19:51] LABS: Basophils # 0.1 10*3/uL (0.0-0.2); Basophils % 0.4 % (0.0-0.8); Hematocrit 45.3 VOL% (35.7-47.0); Hemoglobin 15.7 GM/DL (12.0-16.0); Immature Granulocytes % 0.3 %; Immature Granulocytes Absolute 0.04 #; Lymphocytes # 0.6 10*3/uL (1.4-4.0); Lymphocytes % 4.4 % (21.3-54.2); Mean Corpuscular HGB Conc 34.7 GM/DL (32-36); Mean Corpuscular Hemoglobin 33 PG (27-34); Mean Corpuscular Volume 94.6 FL (87-102); Mean Platelet Volume 10.4 FL (9.6-12.0); Monocytes # 0.4 10*3/uL (0.11-0.8); Neutrophils # 11.6 10*3/uL (1.4-7.4); Neutrophils % 91.9 % (38.7-73.9); Platelet Count 215 T/CUMM (130-400); Red Blood Count 4.79 MC/CUMM (3.8-5.5); Red Cell Distribution Width 13.1 % (9.3-17.3); White Blood Count 12.7 T/CUMM (4-12)
[2017-11-26 20:10] LABS: Albumin 3.8 G/DL (3.4-5.0); Bilirubin,Total 0.7 MG/DL (0.2-1.0); Calcium 9.3 MG/DL (8.5-10.1); Osmolality,Calculated 286.3 MOS/KG (273-304); Potassium 3.7 MMOL/L (3.5-5.1); Total Protein 7.6 G/DL (6.4-8.3)
[2017-11-26 20:11] LABS: PT Patient Result 10.8 SECS
[2017-11-26 20:15] LABS: Lactic Acid 2.7 MMOL/L (0.4-2.0)
[2017-11-26 22:29] LABS: Apearance,Urine CLOUDY (Clear); Bacteria,Urine Many /HPF (Few); Bilirubin,Urine Negative (Negative); Blood, Urine Moderate mg/dL (Negative); Glucose,Urine (UA) Negative (Negative); Ketones,Urine Negative (Negative); Mucus,Urine Occasional /LPF (Occasional); Nitrite,Urine Positive (Negative); Protein,Urine 30 MG/DL; RBC,Urine 44 /HPF (0-4); Squamous Epithelial Cell,Urine Moderate /HPF (0-10); Urine Specific Gravity 1.019 (1.001-1.035); Urine Urobilinogen < 2.0 EU/DL (0.2-1.0); WBC,Urine 72 /HPF (0-6)
[2017-11-26 22:33] LABS: Urine Color Dark yellow (Yellow)
[2017-11-26 23:32] LABS: Band Neutrophils 6 % (0-10); Lymphocytes 7 % (20-55); Macrocytosis 1+; Platelet Estimate Normal; Segmented Neutrophils 86 % (50-85); Total Cells Counted 100
[2017-11-27 00:12] LABS: Troponin I Only < 0.015 NG/ML (0.00-0.045)
[2017-11-27] MEDS ORDERED: ZALEPLON 5 MG CAPSULE PO PRN (01:22)
[2017-11-27] MEDS ORDERED: ENOXAPARIN 30 MG/0.3 ML SYRINGE SUBCUT SCH (01:30)
[2017-11-27] MEDS ORDERED: GLUCAGON 1 MG VIAL IM PRN (02:03)
[2017-11-27] MEDS ORDERED: DEXTROSE 50% 25 GM/50 ML VIAL IV PRN (02:03)
[2017-11-27] MEDS: ceFAZolin 1,000 MG in SYRINGE 1 EACH IV SCH ×3 (02:22→19:12)
[2017-11-27] MEDS: LEVOTHYROXINE 88 MCG TABLET PO SCH ×3 (02:22→20:57)
[2017-11-27] MEDS: METOPROLOL TARTRATE 50 MG TABLET PO SCH ×3 (02:22→20:57)
[2017-11-27] MEDS: APIXABAN 5 MG TABLET PO SCH ×3 (02:23→20:57)
[2017-11-27] MEDS: FUROSEMIDE 40 MG TABLET PO SCH ×3 (02:23→20:57)
[2017-11-27] MEDS: SODIUM CHLORIDE 0.45% 1,000 ML IV SCH ×2 (02:24→16:17)
[2017-11-27] MEDS: glyBURIDE 5 MG TABLET PO SCH ×2 (08:00→16:18)
[2017-11-27] MEDS: metFORMIN 500 MG TABLET PO SCH ×2 (08:40→16:18)
[2017-11-27] MEDS: MAGNESIUM CHLORIDE 64 MG TABLET PO SCH (08:40)
[2017-11-27] MEDS: TAMSULOSIN 0.4 MG CAPSULE PO SCH (08:40)
[2017-11-27] MEDS: PANTOPRAZOLE 40 MG TABLET PO SCH (08:40)
[2017-11-27] MEDS: ASPIRIN EC 325 MG TABLET PO SCH (08:40)
[2017-11-27] MEDS: ATORVASTATIN 40 MG TABLET PO SCH (08:40)
[2017-11-27] MEDS: amLODIPine 10 MG TABLET PO SCH (08:41)
[2017-11-27] MEDS: FERROUS SULFATE 325 MG TABLET PO SCH ×3 (08:47→20:57)
[2017-11-28] MEDS: ceFAZolin 1,000 MG in SYRINGE 1 EACH IV SCH ×3 (01:05→19:40)
[2017-11-28] MEDS: ONDANSETRON 4 MG/2 ML VIAL IV PRN (09:54)
[2017-11-28] MEDS: ATORVASTATIN 40 MG TABLET PO SCH (09:56)
[2017-11-28] MEDS: amLODIPine 10 MG TABLET PO SCH (09:56)
[2017-11-28] MEDS: FUROSEMIDE 40 MG TABLET PO SCH ×2 (09:56→21:42)
[2017-11-28] MEDS: PANTOPRAZOLE 40 MG TABLET PO SCH (09:57)
[2017-11-28] MEDS: APIXABAN 5 MG TABLET PO SCH ×2 (09:57→21:42)
[2017-11-28] MEDS: ASPIRIN EC 325 MG TABLET PO SCH (09:57)
[2017-11-28] MEDS: METOPROLOL TARTRATE 50 MG TABLET PO SCH ×2 (09:57→21:42)
[2017-11-28] MEDS: SODIUM CHLORIDE 0.45% 1,000 ML IV SCH ×2 (09:57→21:43)
[2017-11-28] MEDS: LEVOTHYROXINE 88 MCG TABLET PO SCH ×2 (09:57→21:42)
[2017-11-28] MEDS: MAGNESIUM CHLORIDE 64 MG TABLET PO SCH (09:57)
[2017-11-28] MEDS: TAMSULOSIN 0.4 MG CAPSULE PO SCH (09:57)
[2017-11-28] MEDS: FERROUS SULFATE 325 MG TABLET PO SCH ×3 (09:57→21:42)
[2017-11-28] MEDS: metFORMIN 500 MG TABLET PO SCH ×2 (09:59→17:32)
[2017-11-28] MEDS: glyBURIDE 5 MG TABLET PO SCH ×2 (10:19→17:32)
[2017-11-29] MEDS: ceFAZolin 1,000 MG in SYRINGE 1 EACH IV SCH (01:15)
[2017-11-29] MEDS: ONDANSETRON 4 MG/2 ML VIAL IV PRN (04:00)
[2017-11-29 06:16] LABS: Basophils % 0.2 % (0.0-0.8); Eosinophils # 0.1 10*3/uL (0.0-0.87); Eosinophils % 0.8 % (0.00-10.9); Hematocrit 39.8 VOL% (35.7-47.0); Hemoglobin 13.8 GM/DL (12.0-16.0); Immature Granulocytes % 0.9 %; Immature Granulocytes Absolute 0.12 #; Lymphocytes # 0.6 10*3/uL (1.4-4.0); Lymphocytes % 4.5 % (21.3-54.2); Mean Corpuscular HGB Conc 34.7 GM/DL (32-36); Mean Corpuscular Hemoglobin 32 PG (27-34); Mean Corpuscular Volume 91.5 FL (87-102); Mean Platelet Volume 10.5 FL (9.6-12.0); Monocytes % 7.8 % (1.7-12.7); Neutrophils # 11.1 10*3/uL (1.4-7.4); Neutrophils % 85.8 % (38.7-73.9); Platelet Count 154 T/CUMM (130-400); Red Blood Count 4.35 MC/CUMM (3.8-5.5)
[2017-11-29 06:26] LABS: Calcium 8.9 MG/DL (8.5-10.1); Osmolality,Calculated 277.8 MOS/KG (273-304); Potassium 3.8 MMOL/L (3.5-5.1)
[2017-11-29 07:25] LABS: Band Neutrophils 18 % (0-10); Lymphocytes 1 % (20-55); Platelet Estimate Adequate; Polychromasia Slight; Segmented Neutrophils 75 % (50-85); Total Cells Counted 100
[2017-11-29] MEDS: APIXABAN 5 MG TABLET PO SCH ×2 (09:22→20:10)
[2017-11-29] MEDS: amLODIPine 10 MG TABLET PO SCH (09:22)
[2017-11-29] MEDS: FERROUS SULFATE 325 MG TABLET PO SCH ×3 (09:22→20:10)
[2017-11-29] MEDS: FUROSEMIDE 40 MG TABLET PO SCH ×2 (09:22→20:10)
[2017-11-29] MEDS: LEVOTHYROXINE 88 MCG TABLET PO SCH ×2 (09:23→20:10)
[2017-11-29] MEDS: METOPROLOL TARTRATE 50 MG TABLET PO SCH ×2 (09:23→20:10)
[2017-11-29] MEDS: PANTOPRAZOLE 40 MG TABLET PO SCH (09:23)
[2017-11-29] MEDS: ATORVASTATIN 40 MG TABLET PO SCH (09:23)
[2017-11-29] MEDS: TAMSULOSIN 0.4 MG CAPSULE PO SCH (09:23)
[2017-11-29] MEDS: MAGNESIUM CHLORIDE 64 MG TABLET PO SCH (09:23)
[2017-11-29] MEDS: ASPIRIN EC 325 MG TABLET PO SCH (09:23)
[2017-11-29] MEDS: metFORMIN 500 MG TABLET PO SCH ×2 (09:24→17:31)
[2017-11-29] MEDS: glyBURIDE 5 MG TABLET PO SCH ×2 (09:25→17:31)
[2017-11-29] MEDS: cefTAZidime 500 MG in SYRINGE 1 EACH IV SCH ×3 (09:33→23:33)
[2017-11-29] MEDS: SODIUM CHLORIDE 0.45% 1,000 ML IV SCH ×2 (09:37→23:33)
[2017-11-30 07:42] VITALS: BP 139/68
[2017-11-30] MEDS: glyBURIDE 5 MG TABLET PO SCH (08:01)
[2017-11-30] MEDS: metFORMIN 500 MG TABLET PO SCH (08:02)
[2017-11-30] MEDS: cefTAZidime 500 MG in SYRINGE 1 EACH IV SCH (08:31)
[2017-11-30] MEDS: ATORVASTATIN 40 MG TABLET PO SCH (08:32)
[2017-11-30] MEDS: LEVOTHYROXINE 88 MCG TABLET PO SCH (08:32)
[2017-11-30] MEDS: METOPROLOL TARTRATE 50 MG TABLET PO SCH (08:33)
[2017-11-30] MEDS: amLODIPine 10 MG TABLET PO SCH (08:33)
[2017-11-30] MEDS: APIXABAN 5 MG TABLET PO SCH (08:33)
[2017-11-30] MEDS: PANTOPRAZOLE 40 MG TABLET PO SCH (08:33)
[2017-11-30] MEDS: MAGNESIUM CHLORIDE 64 MG TABLET PO SCH (08:33)
[2017-11-30] MEDS: TAMSULOSIN 0.4 MG CAPSULE PO SCH (08:33)
[2017-11-30] MEDS: FUROSEMIDE 40 MG TABLET PO SCH (08:33)
[2017-11-30] MEDS: ASPIRIN EC 325 MG TABLET PO SCH (08:33)
[2017-11-30] MEDS: FERROUS SULFATE 325 MG TABLET PO SCH (08:33)
== END 2017-11-30 10:58 | disposition home or self-care (01) | DRG 689 ==
LOC: N.ED 18:50 → SUATTDRO 11-27 01:15 → N.EDINP 11-27 01:15 → N.5E 11-27 02:02
PROVIDERS: ADMIT Internal Medicine Infectious Disease

== ENCOUNTER 2020-03-17 11:07 | Inpatient (IN) ==
[2020-03-17] MEDS ORDERED: LACTULOSE 20 GM/30 ML UDCUP PO PRN (14:11)
[2020-03-17] MEDS ORDERED: GLUCAGON 1 MG VIAL IM PRN (14:11)
[2020-03-17] MEDS ORDERED: ONDANSETRON 4 MG/2 ML VIAL IV PRN (14:11)
[2020-03-17] MEDS ORDERED: ZALEPLON 5 MG CAPSULE PO PRN (14:11)
[2020-03-17] MEDS ORDERED: traZODone 50 MG TABLET PO PRN (14:11)
[2020-03-17] MEDS ORDERED: ACETAMINOPHEN 325 MG TABLET PO PRN (14:11)
[2020-03-17] MEDS ORDERED: ALUMINUM/MAGNES/SIMETH MAX STR 30 ML UDCUP PO PRN (14:11)
[2020-03-17] MEDS ORDERED: diphenhydrAMINE CAP 25 MG CAPSULE PO PRN (14:11)
[2020-03-17] MEDS ORDERED: DEXTROSE 50% 25 GM/50 ML VIAL IV PRN (14:11)
[2020-03-17] MEDS ORDERED: hydrALAZINE 20 MG/1 ML VIAL IV PRN (14:11)
[2020-03-17] MEDS ORDERED: BISACODYL 5 MG TABLET PO PRN (14:11)
[2020-03-17] MEDS ORDERED: DOCUSATE SODIUM 100 MG CAPSULE PO PRN (14:11)
[2020-03-17] MEDS ORDERED: SIMETHICONE CHEW 125 MG TABLET PO PRN (14:11)
[2020-03-17] MEDS ORDERED: guaiFENesin/DM ER 600-30 MG TABLET PO PRN (14:11)
[2020-03-17 14:19] LABS: Basophils % 0.4 % (0.0-0.8); Eosinophils # 0.2 10*3/uL (0.0-0.87); Eosinophils % 2.2 % (0.00-10.9); Hematocrit 40.8 VOL% (35.7-47.0); Immature Granulocytes % 0.5 %; Immature Granulocytes Absolute 0.04 #; Lymphocytes # 1.2 10*3/uL (1.4-4.0); Lymphocytes % 16.6 % (21.3-54.2); Mean Corpuscular HGB Conc 31.9 GM/DL (32-36); Mean Corpuscular Volume 99.8 FL (87-102); Mean Platelet Volume 9.2 FL (9.6-12.0); Monocytes % 6.7 % (1.7-12.7); Neutrophils % 73.6 % (38.7-73.9); Platelet Count 293 T/CUMM (130-400); Red Blood Count 4.09 MC/CUMM (3.8-5.5); Red Cell Distribution Width 12.3 % (9.3-17.3); White Blood Count 7.4 T/CUMM (4-12)
[2020-03-17 14:48] LABS: Free T4 (Free Thyroxine) 1.25 NG/DL (0.76-1.46); Risk Ratio 3.78; Thyroid Stimulating Hormone 0.517 uIU/ml (0.358-3.74); VLDL CHOLESTEROL 32.6 MG/DL
[2020-03-17 14:53] LABS: Alanine Aminotransferase 28 U/L (13-56); Albumin 3.4 G/DL (3.4-5.0); Alkaline Phosphatase 94 U/L (45-117); Aspartate Amino Transferase 18 U/L (0-37); Bilirubin,Total < 0.39 MG/DL (0.2-1.0); Blood Urea Nitrogen 16 MG/DL (7-18); Calcium 9.7 MG/DL (8.5-10.1); Estimated Glom Filtration Rate 57 ML/MIN; Glucose 149 MG/DL (74-106); Osmolality,Calculated 286.1 MOS/KG (273-304); Total Protein 7.1 G/DL (6.4-8.3)
[2020-03-17] MEDS: FERROUS SULFATE 325 MG TABLET PO SCH ×2 (15:29→21:30)
[2020-03-17] MEDS: CLINDAMYCIN INJ 600 MG in PREMIX 1 EACH IV SCH ×2 (15:29→21:31)
[2020-03-17] MEDS: INSULIN REGULAR 100 UNIT/ML SUBCUT SCH ×2 (17:45→21:40)
[2020-03-17] MEDS: metFORMIN 500 MG TABLET PO SCH (17:46)
[2020-03-17 18:11] LABS: Amorphous Crystals,Urine Occasional /HPF (Few); Apearance,Urine CLOUDY (Clear); Bacteria,Urine Many /HPF (Few); Bilirubin,Urine Negative (Negative); Blood, Urine Negative (Negative); Glucose,Urine (UA) Negative (Negative); Ketones,Urine Negative (Negative); Mucus,Urine Few /LPF (Occasional); Nitrite,Urine Positive (Negative); Protein,Urine Negative; Squamous Epithelial Cell,Urine Many /HPF (0-10); Urine Color Amber (Yellow); Urine Specific Gravity 1.019 (1.001-1.035); Urine Urobilinogen < 2.0 EU/DL (0.2-1.0); WBC,Urine 7 /HPF (0-6)
[2020-03-17] MEDS: amLODIPine 10 MG TABLET PO SCH (21:29)
[2020-03-17] MEDS: EZETIMIBE 10 MG TABLET PO SCH (21:29)
[2020-03-17] MEDS: FUROSEMIDE 40 MG TABLET PO SCH (21:29)
[2020-03-17] MEDS: METOPROLOL TARTRATE 50 MG TABLET PO SCH (21:29)
[2020-03-17] MEDS: MEMANTINE 10 MG TABLET PO SCH (21:30)
[2020-03-17] MEDS: CLOTRIMAZOLE 1% CREAM 15 GM TUBE TOP SCH (21:40)
[2020-03-18 05:33] LABS: Basophils % 0.5 % (0.0-0.8); Eosinophils # 0.3 10*3/uL (0.0-0.87); Eosinophils % 4.2 % (0.00-10.9); Hemoglobin 12.6 GM/DL (12.0-16.0); Immature Granulocytes % 0.5 %; Immature Granulocytes Absolute 0.03 #; Lymphocytes # 1.1 10*3/uL (1.4-4.0); Lymphocytes % 16.6 % (21.3-54.2); Mean Corpuscular HGB Conc 31.5 GM/DL (32-36); Mean Corpuscular Volume 98.8 FL (87-102); Mean Platelet Volume 9.3 FL (9.6-12.0); Monocytes % 8.9 % (1.7-12.7); Neutrophils % 69.3 % (38.7-73.9); Platelet Count 288 T/CUMM (130-400); Red Blood Count 4.05 MC/CUMM (3.8-5.5); Red Cell Distribution Width 12.3 % (9.3-17.3); White Blood Count 6.4 T/CUMM (4-12)
[2020-03-18] MEDS: CLINDAMYCIN INJ 600 MG in PREMIX 1 EACH IV SCH ×3 (05:35→21:41)
[2020-03-18] MEDS: LEVOTHYROXINE 150 MCG TABLET PO SCH (05:36)
[2020-03-18 06:16] LABS: % Iron Saturation 24.1 % (18-50); Albumin 3.1 G/DL (3.4-5.0); Bilirubin,Total 0.5 MG/DL (0.2-1.0); Calcium 9.2 MG/DL (8.5-10.1); Osmolality,Calculated 285.1 MOS/KG (273-304); Total Protein 7.2 G/DL (6.4-8.3)
[2020-03-18 07:32] LABS: Folate 7.7 NG/ML (5.4-24.0)
[2020-03-18] MEDS ORDERED: ROSUVASTATIN 10 MG TABLET PO SCH ×2 (09:00→09:51)
[2020-03-18] MEDS: INSULIN REGULAR 100 UNIT/ML SUBCUT SCH ×4 (09:30→22:53)
[2020-03-18] MEDS: ASCORBIC ACID 500 MG TABLET PO SCH (09:32)
[2020-03-18] MEDS: MEMANTINE 10 MG TABLET PO SCH ×2 (09:32→21:39)
[2020-03-18] MEDS: FERROUS SULFATE 325 MG TABLET PO SCH ×3 (09:33→21:39)
[2020-03-18] MEDS: MAGNESIUM CHLORIDE 64 MG TABLET PO SCH (09:33)
[2020-03-18] MEDS: CYANOCOBALAMIN 500 MCG TABLET PO SCH (09:33)
[2020-03-18] MEDS: amLODIPine 10 MG TABLET PO SCH ×2 (09:34→21:39)
[2020-03-18] MEDS: metFORMIN 500 MG TABLET PO SCH ×2 (09:34→18:07)
[2020-03-18] MEDS: APIXABAN 5 MG TABLET PO SCH (09:34)
[2020-03-18] MEDS: DULoxetine 30 MG CAPSULE PO SCH (09:34)
[2020-03-18] MEDS: PANTOPRAZOLE 40 MG TABLET PO SCH (09:35)
[2020-03-18] MEDS: lisinopriL 2.5 MG TABLET PO SCH (09:35)
[2020-03-18] MEDS: METOPROLOL TARTRATE 50 MG TABLET PO SCH ×2 (09:35→21:39)
[2020-03-18] MEDS: FUROSEMIDE 40 MG TABLET PO SCH ×2 (09:35→21:39)
[2020-03-18] MEDS: OMEGA 3 ACID ETHYL ESTERS 1 GM CAPSULE PO SCH (09:35)
[2020-03-18] MEDS: ASPIRIN EC 325 MG TABLET PO SCH (09:35)
[2020-03-18] MEDS: CALCIUM (CARBONATE)/VITAMIN D 500 MG-200 UNIT TABLET PO SCH (09:35)
[2020-03-18] MEDS: CLOTRIMAZOLE 1% CREAM 15 GM TUBE TOP SCH ×2 (11:09→21:42)
[2020-03-18] MEDS: EZETIMIBE 10 MG TABLET PO SCH (21:39)
[2020-03-19 04:57] LABS: Basophils % 0.6 % (0.0-0.8); Eosinophils # 0.4 10*3/uL (0.0-0.87); Hematocrit 38.3 VOL% (35.7-47.0); Hemoglobin 11.9 GM/DL (12.0-16.0); Immature Granulocytes % 0.4 %; Immature Granulocytes Absolute 0.03 #; Lymphocytes % 14.1 % (21.3-54.2); Mean Corpuscular HGB Conc 31.1 GM/DL (32-36); Mean Corpuscular Volume 98.5 FL (87-102); Mean Platelet Volume 9.5 FL (9.6-12.0); Monocytes % 9.5 % (1.7-12.7); Neutrophils % 70.4 % (38.7-73.9); Platelet Count 286 T/CUMM (130-400); Red Blood Count 3.89 MC/CUMM (3.8-5.5); Red Cell Distribution Width 12.4 % (9.3-17.3); White Blood Count 7.2 T/CUMM (4-12)
[2020-03-19 05:22] LABS: Albumin 2.8 G/DL (3.4-5.0); Bilirubin,Total 0.5 MG/DL (0.2-1.0); Calcium 9.1 MG/DL (8.5-10.1); Total Protein 6.4 G/DL (6.4-8.3)
[2020-03-19] MEDS: CLINDAMYCIN INJ 600 MG in PREMIX 1 EACH IV SCH (05:47)
[2020-03-19] MEDS: LEVOTHYROXINE 150 MCG TABLET PO SCH (05:48)
[2020-03-19 08:24] VITALS: BP 134/64
[2020-03-19] MEDS: INSULIN REGULAR 100 UNIT/ML SUBCUT SCH ×2 (08:47→13:29)
[2020-03-19] MEDS: lisinopriL 2.5 MG TABLET PO SCH (09:11)
[2020-03-19] MEDS: OMEGA 3 ACID ETHYL ESTERS 1 GM CAPSULE PO SCH (09:11)
[2020-03-19] MEDS: ASPIRIN EC 325 MG TABLET PO SCH (09:11)
[2020-03-19] MEDS: CALCIUM (CARBONATE)/VITAMIN D 500 MG-200 UNIT TABLET PO SCH (09:12)
[2020-03-19] MEDS: FERROUS SULFATE 325 MG TABLET PO SCH (09:12)
[2020-03-19] MEDS: APIXABAN 5 MG TABLET PO SCH (09:12)
[2020-03-19] MEDS: metFORMIN 500 MG TABLET PO SCH (09:12)
[2020-03-19] MEDS: ASCORBIC ACID 500 MG TABLET PO SCH (09:12)
[2020-03-19] MEDS: MEMANTINE 10 MG TABLET PO SCH (09:12)
[2020-03-19] MEDS: METOPROLOL TARTRATE 50 MG TABLET PO SCH (09:13)
[2020-03-19] MEDS: FUROSEMIDE 40 MG TABLET PO SCH (09:13)
[2020-03-19] MEDS: CYANOCOBALAMIN 500 MCG TABLET PO SCH (09:13)
[2020-03-19] MEDS: DULoxetine 30 MG CAPSULE PO SCH (09:13)
[2020-03-19] MEDS: PANTOPRAZOLE 40 MG TABLET PO SCH (09:13)
[2020-03-19] MEDS: MAGNESIUM CHLORIDE 64 MG TABLET PO SCH (09:13)
[2020-03-19] MEDS: amLODIPine 10 MG TABLET PO SCH (09:13)
[2020-03-19] MEDS: CLOTRIMAZOLE 1% CREAM 15 GM TUBE TOP SCH (09:16)
[2020-03-19] MEDS: cefTRIAXone 2,000 MG in SYRINGE 1 EACH IV ONE ×2 (12:01→12:16)
[2020-03-19] MEDS ORDERED: cefTRIAXone 1,000 MG VIAL IM ONE (12:14)
== END 2020-03-19 14:35 | disposition home health service (06) | DRG 638 ==
LOC: N.TELEN 11:48 → SUATTDRO 11:48
PROVIDERS: ADMIT Internal Medicine; ATTEND Internal Medicine

== ENCOUNTER 2022-02-15 11:59 | Observation (INO) ==
[2022-02-15 12:37] LABS: Basophils % 0.3 % (0.0-0.8); Eosinophils # 0.2 10*3/uL (0.0-0.87); Eosinophils % 1.6 % (0.00-10.9); Hematocrit 40.1 VOL% (35.7-47.0); Immature Granulocytes % 0.3 %; Immature Granulocytes Absolute 0.03 #; Lymphocytes # 1.1 10*3/uL (1.4-4.0); Lymphocytes % 10.8 % (21.3-54.2); Mean Corpuscular HGB Conc 32.4 GM/DL (32-36); Mean Corpuscular Volume 98.8 FL (87-102); Mean Platelet Volume 10.1 FL (9.6-12.0); Monocytes # 1.1 10*3/uL (0.11-0.8); Monocytes % 10.9 % (1.7-12.7); Neutrophils % 76.1 % (38.7-73.9); Platelet Count 178 T/CUMM (130-400); Red Blood Count 4.06 MC/CUMM (3.8-5.5); Red Cell Distribution Width 12.7 % (9.3-17.3); White Blood Count 9.8 T/CUMM (4-12)
[2022-02-15 12:49] LABS: Albumin 3.1 G/DL (3.4-5.0); Bilirubin,Total 0.6 MG/DL (0.20-1.00); Calcium 9.6 MG/DL (8.5-10.1); Osmolality,Calculated 288.4 MOS/KG (273-304); Potassium 3.9 MMOL/L (3.5-5.1); Total Protein 6.1 G/DL (6.4-8.2)
[2022-02-15 14:30] LABS: Glucose,Urine (UA) Negative (Negative); Protein,Urine 100 mg/dL (Negative); Urine Appearance Clear (Clear); Urine Color Yellow (Yellow); Urine pH 5.5 (4.5-8.0)
[2022-02-15 14:31] LABS: Bilirubin,Urine Negative (Negative); Blood, Urine Negative (Negative); Ketones,Urine Trace mg/dL (Negative); Nitrite,Urine Negative (Negative); Urine Urobilinogen 0.2 eU/dL (<2.0)
[2022-02-15 14:33] LABS: Hyaline Casts,Urine 13 /LPF (0-3); Mucus,Urine Occasional /LPF (Occasional); RBC,Urine 34 /HPF (0-4); Squamous Epithelial Cell,Urine Occasional /HPF (0-10)
[2022-02-15] MEDS ORDERED: SODIUM CHLORIDE 0.9% 500 ML IV STA (14:57)
[2022-02-15] MEDS ORDERED: GLUCAGON 1 MG VIAL IM PRN (15:31)
[2022-02-15] MEDS ORDERED: DEXTROSE 10% 250 ML BAG IV PRN (15:31)
[2022-02-15] MEDS ORDERED: traMADol 50 MG TABLET PO PRN (15:35)
[2022-02-15] MEDS ORDERED: ONDANSETRON 4 MG/2 ML VIAL IV PRN (15:35)
[2022-02-15] MEDS: SODIUM CHLORIDE 0.9% 1,000 ML IV SCH (18:47)
[2022-02-15] MEDS: MEMANTINE 10 MG TABLET PO SCH (20:54)
[2022-02-15] MEDS: RIVASTIGMINE 3 MG CAPSULE PO SCH (20:54)
[2022-02-15] MEDS: FERROUS SULFATE 325 MG TABLET PO SCH (20:54)
[2022-02-15] MEDS: busPIRone 5 MG TABLET PO SCH (20:54)
[2022-02-15] MEDS: APIXABAN 2.5 MG TABLET PO SCH (20:54)
[2022-02-16] MEDS: SODIUM CHLORIDE 0.9% 1,000 ML IV SCH ×3 (04:08→16:29)
[2022-02-16 05:35] LABS: Basophils % 0.4 % (0.0-0.8); Eosinophils # 0.4 10*3/uL (0.0-0.87); Eosinophils % 4.5 % (0.00-10.9); Hematocrit 39.5 VOL% (35.7-47.0); Hemoglobin 12.3 GM/DL (12.0-16.0); Immature Granulocytes % 0.5 %; Immature Granulocytes Absolute 0.04 #; Lymphocytes # 1.3 10*3/uL (1.4-4.0); Lymphocytes % 15.5 % (21.3-54.2); Mean Corpuscular HGB Conc 31.1 GM/DL (32-36); Mean Corpuscular Volume 102.3 FL (87-102); Mean Platelet Volume 10.4 FL (9.6-12.0); Monocytes # 0.9 10*3/uL (0.11-0.8); Monocytes % 10.7 % (1.7-12.7); Neutrophils % 68.4 % (38.7-73.9); Platelet Count 152 T/CUMM (130-400); Red Blood Count 3.86 MC/CUMM (3.8-5.5); Red Cell Distribution Width 12.6 % (9.3-17.3); White Blood Count 8.5 T/CUMM (4-12)
[2022-02-16 06:11] LABS: Albumin 2.5 G/DL (3.4-5.0); Bilirubin,Total 0.4 MG/DL (0.20-1.00); Calcium 8.4 MG/DL (8.5-10.1); Osmolality,Calculated 295.7 MOS/KG (273-304); Thyroid Stimulating Hormone 0.222 uIU/ml (0.358-3.74); Total Protein 5.6 G/DL (6.4-8.2)
[2022-02-16] MEDS ORDERED: LEVOTHYROXINE 125 MCG TABLET PO SCH (06:30)
[2022-02-16] MEDS: APIXABAN 2.5 MG TABLET PO SCH ×2 (08:37→20:37)
[2022-02-16] MEDS: RIVASTIGMINE 3 MG CAPSULE PO SCH ×2 (08:37→20:37)
[2022-02-16] MEDS: MEMANTINE 10 MG TABLET PO SCH ×2 (08:38→20:37)
[2022-02-16] MEDS: busPIRone 5 MG TABLET PO SCH ×2 (08:38→20:37)
[2022-02-16] MEDS: PANTOPRAZOLE 40 MG TABLET PO SCH (08:38)
[2022-02-16] MEDS: ASCORBIC ACID 500 MG TABLET PO SCH (08:38)
[2022-02-16] MEDS: FERROUS SULFATE 325 MG TABLET PO SCH ×3 (08:38→20:37)
[2022-02-16] MEDS: DULoxetine 30 MG CAPSULE PO SCH (08:46)
[2022-02-16] MEDS ORDERED: hydrALAZINE 20 MG/1 ML VIAL IV PRN (16:08)
[2022-02-16] MEDS: hydrALAZINE 25 MG TABLET PO SCH (20:37)
[2022-02-16] MEDS: METOPROLOL TARTRATE 25 MG TABLET PO SCH (20:37)
[2022-02-17] MEDS ORDERED: LEVOTHYROXINE 100 MCG TABLET PO SCH (06:30)
[2022-02-17] MEDS: RIVASTIGMINE 3 MG CAPSULE PO SCH (08:15)
[2022-02-17] MEDS: hydrALAZINE 25 MG TABLET PO SCH (08:16)
[2022-02-17] MEDS: FERROUS SULFATE 325 MG TABLET PO SCH (08:16)
[2022-02-17] MEDS: DULoxetine 30 MG CAPSULE PO SCH (08:16)
[2022-02-17] MEDS: ASCORBIC ACID 500 MG TABLET PO SCH (08:16)
[2022-02-17] MEDS: busPIRone 5 MG TABLET PO SCH (08:16)
[2022-02-17] MEDS: APIXABAN 2.5 MG TABLET PO SCH (08:16)
[2022-02-17] MEDS: MEMANTINE 10 MG TABLET PO SCH (08:16)
[2022-02-17] MEDS: PANTOPRAZOLE 40 MG TABLET PO SCH (08:17)
[2022-02-17] MEDS: METOPROLOL TARTRATE 25 MG TABLET PO SCH (08:17)
[2022-02-17 09:04] LABS: Calcium 9.4 MG/DL (8.5-10.1); Potassium 4.1 MMOL/L (3.5-5.1)
[2022-02-17] MEDS ORDERED: MAGNESIUM SULF RIDER 2 GM/50 ML PREMIX IV ONE (10:59)
[2022-02-17] MEDS: SODIUM CHLORIDE 0.9% 1,000 ML IV SCH (12:00)
[2022-02-17 13:06] VITALS: BP 174/85
== END 2022-02-17 14:35 ==
LOC: EDUNIT# → N.EDINP 11:59 → N.ED 11:59 → SUATTDRO 15:29 → N.TELES 17:55
PROVIDERS: ADMIT Hospitalist; ATTEND Family Medicine